=== PATIENT | male | born 1955 | race Caucasian/White ===

== ENCOUNTER 2017-03-15 23:42 | Emergency (ER) | payer OTHER, SELFPAY ==
[2017-03-15 23:42] VITALS: BMI 35.5
[2017-03-15 23:57] VITALS: RESP 16
[2017-03-16] MEDS ORDERED: Sodium Chloride 0.9% 1,000 ML IV ONE (00:30)
--- NOTE | 2017-03-16 00:32 | C.PDOC ---
History Of Present Illness pt complaining of r inguinal pain occasionally radiating into his back. states that he lifted somethong heavy at work, and felt some discomfort. from his groin radiating into his back. pain has subsided, but returned. No f/c/n/v. no urinary symptoms Time Seen by Provider: 03/16/17 00:25 Chief Complaint (Nursing): Abdominal Pain History Per: Patient History/Exam Limitations: no limitations Onset/Duration Of Symptoms: Days (16) Current Symptoms Are (Timing): Still Present Context: Other Severity: Moderate Pain Scale Rating Of: 4 Location Of Pain/Discomfort: Other (r inguinal) Radiation Of Pain To:: Back Quality Of Discomfort: Dull, Cramping Associated Symptoms: denies: Fever, Chills, Nausea, Vomiting Exacerbating Factors: Movement Alleviating Factors: None Last Bowel Movement: Yesterday Recent travel outside of the [place]: No Additional History Per: Patient Past Medical History Reviewed: Historical Data, Nursing Documentation, Vital Signs Vital Signs: Last Vital Signs Temp 97.7 F 03/16/17 03:22 Pulse 72 03/16/17 03:22 Resp 16 03/16/17 03:22 BP 115/73 03/16/17 03:22 Pulse Ox 97 03/16/17 03:22 - Medical History PMH: Anxiety, Arthritis (neck), Asthma, Back Problems, COPD, CVA, Diabetes ( borderline), HTN, Hypercholesterolemia, Hyperlipidemia, Kidney Stones, Pneumonia , TIA (2004), Chronic Pain Denies: Chronic Kidney Disease Family History: States: No Known Family Hx, [place] (Multiple uncles had [place]'s in their 40's and 50's but not 1st degree family), Diabetes, Hypertension - Social History Hx Tobacco Use: Yes (occasionally) Hx Alcohol Use: No Hx Substance Use: No - Immunization History Hx Tetanus Toxoid Vaccination: No Hx Influenza Vaccination: Yes Hx Pneumococcal Vaccination: Yes Review Of Systems Constitutional: Negative for: Fever, Chills Cardiovascular: Negative for: Chest Pain Respiratory: Negative for: Shortness of Breath Gastrointestinal: Negative for: Nausea, Vomiting, Abdominal Pain Genitourinary: Negative for: Dysuria Musculoskeletal: Positive for: Other (r inguinal pain) Skin: Positive for: Rash (ieriscrotal) Neurological: Negative for: Weakness Psych: Negative for: Anxiety Physical Exam - Physical Exam Appears: Non-toxic, No Acute Distress Skin: Warm, Dry Oral Mucosa: Moist Neck: Supple Chest: No Deformity Cardiovascular: Rhythm Regular Respiratory: No Rales, No Rhonchi, No Wheezing Gastrointestinal/Abdominal: Soft, No Tenderness, Other (morbidly obese) Back: No CVA Tenderness Male Genital: No Testicular Tenderness, No Testicular Swelling, Inguinal Tenderness (right), No Inguinal Swelling, No Scrotal Swelling, No Circumcised Extremity: No Tenderness Extremity: Bilateral: Atraumatic, Normal Color And Temperature, Normal ROM Pulses: Left Dorsalis Pedis: Normal, Right Dorsalis Pedis: Normal Neurological/Psych: Oriented x3, Normal Speech, Normal Cognition Gait: Steady ED Course And Treatment - Laboratory Results Result Diagrams: 03/16/17 01:02 03/16/17 01:02 O2 Sat by Pulse Oximetry: 96 Pulse Ox Interpretation: Normal Reevaluation Time: 04:42 Reassessment Condition: Improved Disposition Counseled Patient/Family Regarding: Studies Performed, Diagnosis, Need For Followup - Disposition Referrals: [facility] [Outside] [facility] [Outside] Disposition: HOME/ ROUTINE Disposition Time: 00:29 Condition: FAIR Prescriptions: Ibuprofen [Motrin Tab] 800 mg PO TID PRN #15 tab PRN Reason: Pain, Moderate (4-7) Instructions: Groin Pain (ED), Diverticulosis (ED), Diverticulosis Diet (ED) Forms: [facility] (Lao) - Clinical Impression Clinical Impression: Abdominal pain, Inguinal strain
[2017-03-16 01:07] LABS: RBC URINE 1 /hpf (0-3); URINE BACTERIA RARE (<OCC); URINE BILIRUBIN NEGATIVE (NEGATIVE); URINE BLOOD NEGATIVE (NEGATIVE); URINE COLOR Yellow (YELLOW); URINE GLUCOSE (UA) 1+ mg/dL (Normal); URINE KETONE NEGATIVE (NEGATIVE); URINE LEUKOCYTE ESTERASE NEG Leu/uL (Negative); URINE PROTEIN NEGATIVE (NEGATIVE); URINE UROBILINOGEN NORMAL mg/dL (0.2-1.0); WBC URINE 2 /hpf (0-5)
[2017-03-16 01:14] LABS: BASO # 0.1 K/uL (0.0-0.2); BASO % 0.8 % (0.0-2.0); EOS # 0.1 K/uL (0.0-0.7); EOS % 1.7 % (0.0-4.0); HEMATOCRIT 41.8 % (35.0-51.0); LYMPH # 3.1 K/uL (1.0-4.3); LYMPH % 38.4 % (20.0-40.0); MEAN CELL VOLUME 86.1 fL (80.0-94.0); MEAN CORPUSCULAR HEMOGLOBIN 29.4 pg (27.0-31.0); MEAN CORPUSCULAR HGB CONC 34.2 g/dL (33.0-37.0); MEAN PLATELET VOLUME 7.6 fL (7.2-11.7); MONO # 0.6 K/uL (0.0-0.8); NRBC % 0.2 % (0.0-2.0); RED CELL DISTRIBUTION WIDTH 13.8 % (11.5-14.5); WHITE BLOOD COUNT 7.9 K/uL (4.8-10.8)
[2017-03-16 01:40] LABS: ALB/GLOB RATIO 1.1 (1.0-2.1); ALKALINE PHOSPHATASE 62 U/L (38-126); ALT/SGPT 31 U/L (21-72); AST/SGOT 31 U/L (17-59); BILIRUBIN,TOTAL 0.4 mg/dL (0.2-1.3); BLOOD UREA NITROGEN 22 mg/dL (9-20); CARBON DIOXIDE 25 mmol/L (22-30); GFR AFRICAN-AMERICAN > 60; GLUCOSE,RANDOM 133 mg/dL (75-110); TOTAL PROTEIN 6.8 g/dL (6.3-8.3)
[2017-03-16 01:41] LABS: CALCIUM 8.8 mg/dl (8.6-10.4)
[2017-03-16 01:47] LABS: SODIUM 135 mmol/L (132-148)
[2017-03-16 01:48] LABS: CHLORIDE 100 mmol/L (98-107); POTASSIUM 3.7 mmol/L (3.6-5.2)
[2017-03-16] MEDS ORDERED: Iodixanol 320 MG/ML 100 ML BOTTLE IV ONE (03:43)
--- NOTE | 2017-03-16 04:12 | CT ---
EXAM: CT Abdomen and Pelvis With Intravenous Contrast CLINICAL HISTORY: 61 years old, male; Pain; Abdominal pain and other: Right groin pain; Patient HX: 8-16 TECHNIQUE: Axial computed tomography images of the abdomen and pelvis with intravenous contrast. This CT exam was performed using one or more of the following dose reduction techniques: automated exposure control, adjustment of the mA and/or kV according to patient size, and/or use of iterative reconstruction technique. Coronal and sagittal reformatted images were created and reviewed. CONTRAST: 100 mL of [id number] administered intravenously. COMPARISON: No relevant prior studies available. FINDINGS: Lower thorax: The bilateral lung bases are clear. ABDOMEN: Liver: No acute findings. Gallbladder and bile ducts: The gallbladder is decompressed. No calcified stones. No significant intra- or extrahepatic biliary ductal dilation. Pancreas: Enhances homogeneously. No ductal dilation. No discrete mass. Spleen: No acute findings. Adrenals: No acute findings. Kidneys and ureters: No acute findings. No hydronephrosis or renal calculi. No discrete solid mass. PELVIS: Bladder: No acute findings. Reproductive: No acute findings. Appendix: The air filled appendix is of normal caliber (series 3, image 134) . ABDOMEN and PELVIS: Stomach and bowel: No obstruction. No mucosal thickening. Colonic diverticulosis, without inflammation. Peritoneum: No significant fluid collection. No free air. Lymph nodes: No pathologically enlarged lymph nodes. Vasculature: Unremarkable. Bones: No acute fracture. IMPRESSION: Colonic diverticulosis.
[2017-03-16 05:03] VITALS: BP 116/61; PULSE 78; TEMP 97.4; O2SAT 16
== END 2017-03-16 05:05 | disposition home or self-care (01) ==
LOC: C.ER 23:42
DX: S39.011A Strain of muscle, fascia and tendon of abdomen, initial encounter (principal); X50.9XXA Other and unspecified overexertion or strenuous movements or postures, initial encounter; Y92.89 Other specified places as the place of occurrence of the external cause; Y99.0 Civilian activity done for income or pay; R10.31 Right lower quadrant pain
CPT/HCPCS: 74177; 80053; 81001; 83690; 85025; 85610; 85730; 96361; 96374; 99284; J1885; J7040; Q9967

== ENCOUNTER 2017-03-27 16:54 | Emergency (ER) | payer OTHER ==
[2017-03-27 16:54] VITALS: BMI 35.5
[2017-03-27 17:02] VITALS: BP 155/97; PULSE 96; RESP 18; TEMP 98.5; O2SAT 96
--- NOTE | 2017-03-27 17:16 | C.PDOC ---
History Of Present Illness Cain Lindo is a 61 y/o male who presents to the ED complaining of pain at his right thigh radiating down the leg. Pt notes that its primarily only at his varicose veins. Worse after standing on his feet all day at work. Denies trauma or injury. Denies back pain, knee pain, leg swelling, groin pain, testicular pain or discharge. No SOB, abdominal pain. Time Seen by Provider: 03/27/17 17:04 Chief Complaint (Nursing): Lower Extremity Problem/Injury History Per: Patient History/Exam Limitations: no limitations Onset/Duration Of Symptoms: Days (x 3) Current Symptoms Are (Timing): Still Present Past Medical History Reviewed: Historical Data, Nursing Documentation, Vital Signs Vital Signs: Last Vital Signs Temp 98.5 F 03/27/17 16:59 Pulse 96 H 03/27/17 16:59 Resp 18 03/27/17 16:59 BP 155/97 H 03/27/17 16:59 Pulse Ox 96 03/27/17 18:05 - Medical History PMH: Anxiety, Arthritis (neck), Asthma, Back Problems, COPD, CVA, Diabetes ( borderline), HTN, Hypercholesterolemia, Hyperlipidemia, Kidney Stones, Pneumonia , Chronic Kidney Disease, TIA (2004), Chronic Pain Other Surgeries: Foot surgery, Right middle finger surgery Family History: States: [place] (Multiple uncles had [place]'s in their 40's and 50's but not 1st degree family), Diabetes, Hypertension - Social History Hx Tobacco Use: Yes (occasionally) Hx Alcohol Use: No Hx Substance Use: No - Immunization History Hx Tetanus Toxoid Vaccination: No Hx Influenza Vaccination: Yes Hx Pneumococcal Vaccination: Yes Review Of Systems Except As Marked, All Systems Reviewed And Found Negative. Gastrointestinal: Negative for: Abdominal Pain Genitourinary: Negative for: Other (Inguinal or testicular pain, discharge) Musculoskeletal: Positive for: Other (Right thigh pain, near superficial vein). Negative for: Back Pain, Leg Pain (lower leg or knee) Physical Exam - Physical Exam Appears: Well, Non-toxic, No Acute Distress Skin: Normal Color, Warm, Dry Head: Atraumatic, Normacephalic Eye(s): bilateral: Normal Inspection, EOMI Nose: Normal Oral Mucosa: Moist Throat: Normal Neck: Normal, Normal ROM, Supple Chest: Symmetrical Cardiovascular: Rhythm Regular, No Murmur Respiratory: Normal Breath Sounds, No Accessory Muscle Use Gastrointestinal/Abdominal: Normal Exam, Soft, No Tenderness Back: Normal Inspection, No Vertebral Tenderness Extremity: Normal ROM, Tenderness (to his right anterior lateral thigh, tenderness to varicose veins), No Swelling Pulses: Left Dorsalis Pedis: Normal, Right Dorsalis Pedis: Normal Neurological/Psych: Oriented x3, Normal Speech, Normal Motor, Normal Sensation Gait: Steady ED Course And Treatment O2 Sat by Pulse Oximetry: 96 (RA) Pulse Ox Interpretation: Normal Progress Note: Ordered Naproxen. Patient reports feeling better. Wells criteria negative.Will return tomorrow for US Duplex of the lower extremity. Patient is in agreement with the plan. He is discharged home with Rx for Naprosyn. Case discussed with Dr Ashby, agreed upon plan and treatment. Medical Decision Making Medical Decision Making: Time: 17:30 Plan: --Naproxen 550 mg PO Disposition - Disposition Disposition: HOME/ ROUTINE Disposition Time: 17:39 Condition: STABLE Additional Instructions: Elevate your legs. Where compression stockings. Return to ER tomorrow for ultrasound of your leg. Prescriptions: Naproxen [Naprosyn] 1 tab PO BID PRN #20 tab PRN Reason: Pain Instructions: Varicose Veins (ED) Forms: [facility] (Kiswahili), Work Excuse - Clinical Impression Clinical Impression: Right leg pain
[2017-03-27] MEDS ORDERED: Naproxen 550 mg Tab PO STA (17:30)
[2017-03-27] MEDS ORDERED: Naproxen 550 mg Tab PO ONE (17:40)
[2017-03-27] MEDS ORDERED: Enoxaparin 40 mg Syringe SC STA (17:45)
== END 2017-03-27 17:57 | disposition home or self-care (01) ==
LOC: C.ER 16:54
DX: M79.651 Pain in right thigh (principal)

== ENCOUNTER 2017-03-28 08:33 | Emergency (ER) | payer OTHER ==
[2017-03-28 08:34] VITALS: BMI 35.5
--- NOTE | 2017-03-28 09:46 | C.PDOC ---
History Of Present Illness 61 year old male with PMH of Arthritis, chronic back pain, HTN, COPD and Anxiety presents to ED with complaints of right leg pain. Patient reports pain started in the thigh 3 days ago and radiates down the leg. He was seen in ED yesterday and advised to return for Doppler study. Patient states he felt improvement of pain with Naproxen. Denies any chest pain, palpitations, SOB. Time Seen by Provider: 03/28/17 09:19 Chief Complaint (Nursing): Lower Extremity Problem/Injury History Per: Patient History/Exam Limitations: no limitations Onset/Duration Of Symptoms: Days (3) Current Symptoms Are (Timing): Better Past Medical History Reviewed: Historical Data, Nursing Documentation, Vital Signs Vital Signs: Last Vital Signs Temp 98 F 03/28/17 10:34 Pulse 69 03/28/17 10:34 Resp 18 03/28/17 10:34 BP 121/73 03/28/17 10:34 Pulse Ox 97 03/28/17 10:34 - Medical History PMH: Anxiety, Arthritis (neck), Asthma, Back Problems, COPD, CVA, Diabetes ( borderline), HTN, Hypercholesterolemia, Hyperlipidemia, Kidney Stones, Pneumonia , Chronic Kidney Disease, TIA (2004), Chronic Pain Family History: States: [place] (Multiple uncles had [place]'s in their 40's and 50's but not 1st degree family), Diabetes, Hypertension - Social History Hx Tobacco Use: Yes (occasionally) Hx Alcohol Use: No Hx Substance Use: No - Immunization History Hx Tetanus Toxoid Vaccination: No Hx Influenza Vaccination: Yes Hx Pneumococcal Vaccination: Yes Review Of Systems Except As Marked, All Systems Reviewed And Found Negative. Cardiovascular: Negative for: Chest Pain, Palpitations Respiratory: Negative for: Shortness of Breath Musculoskeletal: Positive for: Leg Pain (Right leg pain. From thigh radiating down the leg.) Physical Exam - Physical Exam Appears: Non-toxic, No Acute Distress Skin: Warm, Dry, No Rash Head: Atraumatic, Normacephalic Eye(s): bilateral: Normal Inspection Oral Mucosa: Moist Neck: Normal ROM Chest: Symmetrical, No Tenderness Cardiovascular: Rhythm Regular, No Murmur Respiratory: Normal Breath Sounds, No Rales, No Rhonchi, No Wheezing Extremity: Normal ROM, Tenderness (To right anterior lateral thigh. Tenderness to varicose veins. ), No Pedal Edema, No Calf Tenderness, No Deformity, No Swelling Pulses: Left Dorsalis Pedis: Normal, Right Dorsalis Pedis: Normal Neurological/Psych: Oriented x3, Normal Speech Gait: Steady Medical Decision Making Medical Decision Making: Impression: Right leg pain, low suspicion for DVT Prior records reviewed: Patient seen in ED yesterday for leg pain and advised to return for Doppler Plan: * Venous doppler Progress: Venous doppler was negative for DVT or other abnormality. Patient remained well and in no acute distress. Patient stable for discharge and recommend Naproxen for any pain and to follow up with PCP or clinic. Disposition - Disposition Referrals: Clinic,Med Surg [Primary Care Provider] - Disposition: HOME/ ROUTINE Disposition Time: 10:14 Condition: STABLE Additional Instructions: Your venous ultrasound test today was negative, meaning no blood clots. Please continue to take Naproxen for any pain to area. It is recommended you follow up with your doctor or clinic for further evaluation. 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 - Scribe Statement The provider has reviewed the documentation as recorded by the Scribe Carole Falk All medical record entries made by the Imtiaz were at my direction and personally dictated by me. I have reviewed the chart and agree that the record accurately reflects my personal performance of the history, physical exam, medical decision making, and the department course for this patient. I have also personally directed, reviewed, and agree with the discharge instructions and disposition.
[2017-03-28 10:35] VITALS: BP 121/73; PULSE 69; RESP 18; TEMP 98; O2SAT 97
--- NOTE | 2017-03-29 12:00 | VASCLAB ---
PROCEDURE: Right Lower Extremity Venous Duplex Exam. HISTORY: right leg pain, thigh to calf, varicose veins PRIORS: None. TECHNIQUE: Right common femoral, femoral, popliteal and posterior tibial, peroneal and great saphenous veins were evaluated. Flow was assessed with color Doppler, compressibility, assessment of phasic flow and augmentation response. Report prepared by FERNANDO Brush, RVT FINDINGS: RIGHT: 1. Common Femoral Vein: 1.1. Compressibility - Fully compressible: Thrombus - None: Flow - Phasic: Augmentation -Normal: Reflux - None. 2. Femoral Vein: 2.1. Compressibility - Fully compressible: Thrombus - None: Flow - Phasic: Augmentation -Normal: Reflux - None. 3. Popliteal Vein: 3.1. Compressibility - Fully compressible: Thrombus - None: Flow - Phasic: Augmentation -Normal: Reflux - None. 4. Posterior Tibial Vein: 4.1. Compressibility - Fully compressible: Thrombus - None: Flow - Phasic: Augmentation -Normal: Reflux - None. 5. Peroneal Vein: 5.1. Compressibility - Fully compressible: Thrombus - None: Flow - Phasic: Augmentation -Normal: Reflux - None. 6. Great Saphenous Vein: 6.1. Compressibility - Fully compressible: Thrombus -None: Flow - Phasic: Augmentation - Normal: Reflux - None. OTHER FINDINGS: IMPRESSION: No evidence of deep or superficial vein thrombosis of the right lower extremity with excellent venous flow. Normal valve function noted of the right side. Normal venous flow noted in the left common femoral vein.
== END 2017-03-28 10:37 | disposition home or self-care (01) ==
LOC: SUPCPDRO 08:33 → C.ER 08:33
DX: I83.811 Varicose veins of right lower extremity with pain (principal)

== ENCOUNTER 2017-04-14 04:22 | Emergency (ER) | payer SELFPAY ==
[2017-04-14 04:22] VITALS: BMI 35.5
--- NOTE | 2017-04-14 05:00 | C.PDOC ---
History Of Present Illness 61 year old male who presents to the ER with a complaint of intermittent right testicle pain for the past week that worsen with movement. Patient states the pain worsened tonight which prompted visit. Denies trauma, urinary symptoms, penile discharge, abdominal pain, or fever. Time Seen by Provider: 04/14/17 04:48 Chief Complaint (Nursing): Groin Pain History Per: Patient History/Exam Limitations: no limitations Onset/Duration Of Symptoms: Days, Intermittent Episodes Current Symptoms Are (Timing): Still Present Quality Of Discomfort: Unable To Describe Associated Symptoms: denies: Fever, Chills, Urinary Symptoms Alleviating Factors: None Recent travel outside of the [place]: No Past Medical History Reviewed: Historical Data, Nursing Documentation, Vital Signs Vital Signs: Last Vital Signs Temp 97.4 F L 04/14/17 04:30 Pulse 81 04/14/17 04:30 Resp 20 04/14/17 04:30 BP 136/93 H 04/14/17 04:30 Pulse Ox 97 04/14/17 05:03 - Medical History PMH: Anxiety, Arthritis (neck), Asthma, Back Problems, COPD, CVA, Diabetes ( borderline), HTN, Hypercholesterolemia, Hyperlipidemia, Kidney Stones, Pneumonia , Chronic Kidney Disease, TIA, Chronic Pain Surgical History: No Surg Hx Family History: States: [place] (Multiple uncles had [place]'s in their 40's and 50's but not 1st degree family), Diabetes, Hypertension - Social History Hx Tobacco Use: Yes (occasionally) Hx Alcohol Use: No Hx Substance Use: No - Immunization History Hx Tetanus Toxoid Vaccination: No Hx Influenza Vaccination: No Hx Pneumococcal Vaccination: No Review Of Systems Constitutional: Negative for: Fever Gastrointestinal: Negative for: Abdominal Pain Genitourinary: Positive for: Scrotal Pain. Negative for: Dysuria, Hematuria, Penile Discharge, Penile Pain Physical Exam - Physical Exam Appears: Non-toxic Skin: Normal Color, Warm, Dry Head: Atraumatic, Normacephalic Oral Mucosa: Moist Male Genital: Testicular Tenderness (Moderate to right), Testicular Swelling ( Mild to right), Inguinal Tenderness (Right), No Other (Erythema, lesions, bulging mass, hernia) Neurological/Psych: Oriented x3, Normal Speech, Normal Cognition ED Course And Treatment O2 Sat by Pulse Oximetry: 97 (Room air) Pulse Ox Interpretation: Normal Progress Note: Toradol administered. Urinalysis and testicular US ordered. Pain improved with meds. Testicular US shows right epididymal cysts. Pt is stable, advised pain meds and f/u. Return precautions explained and understood by pt Reevaluation Time: 06:28 Reassessment Condition: Improved Disposition Counseled Patient/Family Regarding: Diagnosis, Need For Followup, Rx Given - Disposition Referrals: David Fowler MD [Staff Provider] - [facility] [Outside] Disposition: HOME/ ROUTINE Disposition Time: 06:28 Condition: STABLE Additional Instructions: Motrin for pain Follow up with the Urologist- call for appointment Return if worse Prescriptions: Ibuprofen [Motrin] 600 mg PO Q6H #20 tab Instructions: Testicle Pain (ED) Forms: [facility] (Indonesian) - Clinical Impression Clinical Impression: Epididymal cyst, Testicular pain, right - Scribe Statement The provider has reviewed the documentation as recorded by the Scribe Kal Mcarthur All medical record entries made by the Scribe were at my direction and personally dictated by me. I have reviewed the chart and agree that the record accurately reflects my personal performance of the history, physical exam, medical decision making, and the department course for this patient. I have also personally directed, reviewed, and agree with the discharge instructions and disposition.
[2017-04-14 05:18] LABS: RBC URINE < 1 /hpf (0-3); URINE BILIRUBIN NEGATIVE (NEGATIVE); URINE BLOOD NEGATIVE (NEGATIVE); URINE COLOR Yellow (YELLOW); URINE GLUCOSE (UA) NORMAL (Normal); URINE KETONE NEGATIVE (NEGATIVE); URINE LEUKOCYTE ESTERASE NEG Leu/uL (Negative); URINE PROTEIN NEGATIVE (NEGATIVE); URINE UROBILINOGEN NORMAL mg/dL (0.2-1.0); WBC URINE 1 /hpf (0-5)
--- NOTE | 2017-04-14 06:07 | US ---
EXAM: US Scrotum EXAM DATE/TIME: 04/14/2017 4:54 AM CLINICAL HISTORY: 61 years old, male; Pain; Groin pain; Additional info: Right testicular pain TECHNIQUE: Real-time ultrasound of the scrotum with color Doppler and image documentation. COMPARISON: No relevant prior studies available. FINDINGS: The right testicle measures 4 x 1.9 x 2.6 cm. The left testicle measures 3.8 x 1.7 x 2.5 cm. The testicles are homogeneous bilaterally. Color flow and arterial waveforms are demonstrated to the testicles bilaterally (no torsion). The right epididymis is enlarged with respect to the left due to the presence of 2 cysts both of which measure approximately 1.2 cm in diameter. Prior testicular ultrasound from 2013 was not provided. If images or report are provided, I would be happy to correlate to determine if this is a new finding. IMPRESSION: Right epididymal cysts.
[2017-04-14 06:40] VITALS: BP 129/79; PULSE 74; RESP 16; TEMP 97.8; O2SAT 98
== END 2017-04-14 06:40 | disposition home or self-care (01) ==
LOC: C.ER 04:22
DX: N50.3 Cyst of epididymis (principal); N50.811 Right testicular pain
CPT/HCPCS: 76870; 81001; 96372; 99282; J1885

== ENCOUNTER 2017-05-05 10:34 | Emergency (ER) | payer OTHER ==
[2017-05-05 10:35] VITALS: BMI 35.5
--- NOTE | 2017-05-05 11:06 | C.PDOC ---
History Of Present Illness 61M c/o constant bilateral flank pain, low back pain, and left side abdominal pain rad to left chest for the last couple days. pain is worse w movement. he says he has a long hx of back pain and also has had this same chest pain in the past and is unsure of the cause. Time Seen by Provider: 05/05/17 11:06 Chief Complaint (Nursing): Back Pain Past Medical History Vital Signs: Last Vital Signs Temp 97.5 F L 05/05/17 16:27 Pulse 78 05/05/17 16:27 Resp 20 05/05/17 16:27 BP 118/84 05/05/17 16:27 Pulse Ox 96 05/05/17 17:25 - Medical History PMH: Anxiety, Arthritis (neck), Asthma, Back Problems, COPD, CVA, Diabetes ( borderline), HTN, Hypercholesterolemia, Hyperlipidemia, Kidney Stones, Pneumonia , Chronic Kidney Disease, TIA, Chronic Pain Family History: States: [place] (Multiple uncles had [place]'s in their 40's and 50's but not 1st degree family), Diabetes, Hypertension - Social History Hx Tobacco Use: Yes (occasionally) Hx Alcohol Use: No Hx Substance Use: No - Immunization History Hx Tetanus Toxoid Vaccination: No Hx Influenza Vaccination: No Hx Pneumococcal Vaccination: No Review Of Systems Constitutional: Negative for: Fever, Weakness Cardiovascular: Positive for: Chest Pain. Negative for: Palpitations, Edema Respiratory: Negative for: Cough, Shortness of Breath Gastrointestinal: Positive for: Abdominal Pain. Negative for: Nausea, Vomiting , Diarrhea, Melena, Hematochezia Genitourinary: Negative for: Dysuria, Incontinence Neurological: Negative for: Weakness, Numbness, Confusion, Altered Mental Status , Headache, Dizziness Physical Exam - Physical Exam Appears: Well, Non-toxic, No Acute Distress Skin: Warm, Dry Head: Atraumatic Eye(s): bilateral: PERRL Nose: No Epistaxis Oral Mucosa: Moist Neck: Normal ROM Cardiovascular: Rhythm Regular Respiratory: No Decreased Breath Sounds, No Accessory Muscle Use, No Rales, No Rhonchi, No Wheezing Gastrointestinal/Abdominal: Soft, No Tenderness, No Distention, No Guarding, No Rebound Extremity: No Swelling Pulses: Left Radial: Normal, Right Radial: Normal, Left Dorsalis Pedis: Normal, Right Dorsalis Pedis: Normal Neurological/Psych: Oriented x3, Normal Motor, Normal Sensation, Other (no focal deficits) ED Course And Treatment - Laboratory Results Result Diagrams: 05/05/17 11:50 05/05/17 11:50 ECG: Interpreted By Me, Viewed By Me ECG Rhythm: Sinus Rhythm Interpretation Of ECG: LVH, No acute ischemia Rate From EC (bpm) O2 Sat by Pulse Oximetry: 96 (ra) Medical Decision Making Medical Decision Makin the pt is resting quietly, appears well, no distress, requesting food. I disc results w him including need for close pcp follow up for incidental findings. he v/u and agrees w plan. also disc rtr. 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 TECHNIQUE: Axial computed tomography images were obtained of the chest in the pulmonary arterial phase of enhancement. Coronal and sagittal reformatted images were created and reviewed. Intravenous contrast dose: 100 mL Visipaque 320 Radiation dose: Total exam DLP = 543.58 mGy-cm. This CT exam was performed using one or more of the following dose reduction techniques: Automated exposure control, adjustment of the mA and/or kV according to patient size, and/or use of iterative reconstruction technique. FINDINGS: PULMONARY ARTERIES: Unremarkable. No pulmonary embolism. AORTA: The thoracic aorta is ectatic and tortuous. There is mild dilate a julio of the ascending thoracic aorta. No evidence of aortic dissection LUNGS: No evidence of pneumonia. Mild 2 moderate pulmonary vascular congestion. Nonspecific ground-glass opacity more prominent at the lower lobes are noted. PLEURAL SPACES: Unremarkable. No effusion or pneuomothorax. HEART: The heart is mildly enlarged. LYMPH NODES: No lymphadenopathy. BONES, CHEST WALL: Unremarkable. No fracture or destructive lesion OTHER FINDINGS: The scans through the upper abdomen demonstrate mild hepatomegaly with findings suggestive of moderate hepatic steatosis. IMPRESSION: No evidence of pulmonary embolus. Cardiomegaly and [id number] pulmonary vascular congestion. Correlate clinically for CHF. No evidence of pleural effusion or pneumothorax. Hepatomegaly with findings suggestive of hepatic steatosis. Disposition - Disposition Referrals: [facility] [Outside] Disposition: HOME/ ROUTINE Disposition Time: 17:21 Condition: STABLE Additional Instructions: Please follow up with your doctor: call tomorrow to make an appointment next week. Return to the ER for any worsening symptoms or for any other concerns. Instructions: Chest Pain (ED) Forms: General Discharge Instructions, [facility] (Bengali), Work Excuse - Clinical Impression Clinical Impression: Chest pain
[2017-05-05 11:55] LABS: BASO # 0.1 K/uL (0.0-0.2); BASO % 0.7 % (0.0-2.0); EOS # 0.1 K/uL (0.0-0.7); EOS % 1.4 % (0.0-4.0); HEMATOCRIT 42.9 % (35.0-51.0); LYMPH # 1.7 K/uL (1.0-4.3); LYMPH % 19.1 % (20.0-40.0); MEAN CELL VOLUME 85.3 fL (80.0-94.0); MEAN CORPUSCULAR HEMOGLOBIN 29.2 pg (27.0-31.0); MEAN CORPUSCULAR HGB CONC 34.2 g/dL (33.0-37.0); MEAN PLATELET VOLUME 7.7 fL (7.2-11.7); MONO # 0.6 K/uL (0.0-0.8); MONO % 6.7 % (0.0-10.0); RED CELL DISTRIBUTION WIDTH 13.5 % (11.5-14.5); WHITE BLOOD COUNT 9.1 K/uL (4.8-10.8)
[2017-05-05 12:01] LABS: URINE BILIRUBIN NEGATIVE (NEGATIVE); URINE BLOOD NEGATIVE (NEGATIVE); URINE COLOR Yellow (YELLOW); URINE GLUCOSE (UA) NORMAL (Normal); URINE KETONE NEGATIVE (NEGATIVE); URINE LEUKOCYTE ESTERASE NEG Leu/uL (Negative); URINE PROTEIN NEGATIVE (NEGATIVE); URINE UROBILINOGEN NORMAL mg/dL (0.2-1.0); WBC URINE < 1 /hpf (0-5)
[2017-05-05 12:09] LABS: CHLORIDE 102 mmol/L (98-107)
[2017-05-05 12:10] LABS: POTASSIUM 4.5 mmol/L (3.6-5.2); SODIUM 140 mmol/L (132-148)
[2017-05-05 12:12] LABS: ALB/GLOB RATIO 1.3 (1.0-2.1); ALKALINE PHOSPHATASE 57 U/L (38-126); AST/SGOT 35 U/L (17-59); BILIRUBIN,TOTAL 0.8 mg/dL (0.2-1.3); BLOOD UREA NITROGEN 17 mg/dL (9-20); CARBON DIOXIDE 24 mmol/L (22-30); GFR AFRICAN-AMERICAN > 60; TOTAL PROTEIN 7.3 g/dL (6.3-8.3)
[2017-05-05 12:13] LABS: ALT/SGPT 34 U/L (21-72); CALCIUM 9.3 mg/dl (8.6-10.4); GLUCOSE,RANDOM 120 mg/dL (75-110)
[2017-05-05] MEDS ORDERED: Iodixanol 320 MG/ML 100 ML BOTTLE IV ONE (14:41)
--- NOTE | 2017-05-05 15:06 | RAD ---
HISTORY: cp COMPARISON: Chest x-ray performed 09/11/15 TECHNIQUE: Chest PA and lateral FINDINGS: Examination limited by habitus and hypoinflation. LUNGS: Mild biapical pleural thickening. Bibasilar atelectasis. Please note that chest x-ray has limited sensitivity for the detection of pulmonary masses. PLEURA: No significant pleural effusion identified. No definite pneumothorax . CARDIOVASCULAR: Heart size appears top normal. OSSEOUS STRUCTURES: Degenerative changes of the spine. VISUALIZED UPPER ABDOMEN: Unremarkable. OTHER FINDINGS: None. IMPRESSION: Hypoinflation. Mild biapical pleural thickening. Mild bibasilar atelectasis.
[2017-05-05 16:27] VITALS: BP 118/84; PULSE 78; RESP 20; TEMP 97.5
--- NOTE | 2017-05-05 16:45 | CT ---
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 TECHNIQUE: Axial computed tomography images were obtained of the chest in the pulmonary arterial phase of enhancement. Coronal and sagittal reformatted images were created and reviewed. Intravenous contrast dose: 100 mL Visipaque 320 Radiation dose: Total exam DLP = 543.58 mGy-cm. This CT exam was performed using one or more of the following dose reduction techniques: Automated exposure control, adjustment of the mA and/or kV according to patient size, and/or use of iterative reconstruction technique. FINDINGS: PULMONARY ARTERIES: Unremarkable. No pulmonary embolism. AORTA: The thoracic aorta is ectatic and tortuous. There is mild dilate a julio of the ascending thoracic aorta. No evidence of aortic dissection LUNGS: No evidence of pneumonia. Mild 2 moderate pulmonary vascular congestion. Nonspecific ground-glass opacity more prominent at the lower lobes are noted. PLEURAL SPACES: Unremarkable. No effusion or pneuomothorax. HEART: The heart is mildly enlarged. LYMPH NODES: No lymphadenopathy. BONES, CHEST WALL: Unremarkable. No fracture or destructive lesion OTHER FINDINGS: The scans through the upper abdomen demonstrate mild hepatomegaly with findings suggestive of moderate hepatic steatosis. IMPRESSION: No evidence of pulmonary embolus. Cardiomegaly and [id number] pulmonary vascular congestion. Correlate clinically for CHF. No evidence of pleural effusion or pneumothorax. Hepatomegaly with findings suggestive of hepatic steatosis.
[2017-05-05 17:23] VITALS: O2SAT 96
--- NOTE | 2017-05-06 14:24 | CARD ---
APPROVED REPORT EKG Measurement Heart [id number] TX [id number] <Conclusion> Normal sinus rhythm Moderate voltage criteria for LVH, may be normal variant Borderline ECG
== END 2017-05-05 17:36 | disposition home or self-care (01) ==
LOC: C.ER 10:34
DX: R07.9 Chest pain, unspecified (principal)
CPT/HCPCS: 71020; 71275; 80053; 81001; 83690; 84484; 85025; 85378; 93005; 96374; 99284; J1885; Q9967

== ENCOUNTER 2017-09-21 14:33 | Emergency (ER) | payer OTHER ==
[2017-09-21 14:33] VITALS: BMI 35.5
[2017-09-21 14:39] VITALS: TEMP 98.4
--- NOTE | 2017-09-21 15:47 | C.PDOC ---
History Of Present Illness Cain Lindo is a 62 year old male, with a past medical history of asthma, who presents to the emergency department complaining of left lower back pain after mopping the floor onset since yesterday. Patient states the pain does not radiate, no saddle anesthesia. He denies any numbness or tingling, weakness, bladder or bowel dysfunction. No further medical complaints. PMD: None provided. Time Seen by Provider: 09/21/17 15:22 Chief Complaint (Nursing): Back Pain History Per: Patient History/Exam Limitations: no limitations Onset/Duration Of Symptoms: Days (x1) Current Symptoms Are (Timing): Still Present Quality Of Discomfort: "Pain" Associated Symptoms: None Past Medical History Reviewed: Historical Data, Nursing Documentation, Vital Signs Vital Signs: Last Vital Signs Temp 98.4 F 09/21/17 14:38 Pulse 78 09/21/17 16:52 Resp 16 09/21/17 16:52 BP 129/78 09/21/17 16:52 Pulse Ox 96 09/23/17 09:37 - Medical History PMH: Anxiety, Arthritis (neck), Asthma, Back Problems, COPD, CVA, Diabetes ( borderline), HTN, Hypercholesterolemia, Hyperlipidemia, Kidney Stones, Pneumonia , Chronic Kidney Disease, TIA, Chronic Pain Surgical History: No Surg Hx Family History: States: [place] (Multiple uncles had KS's in their 40's and 50's but not 1st degree family), Diabetes, Hypertension - Social History Hx Tobacco Use: Yes (occasionally) Hx Alcohol Use: No Hx Substance Use: No - Immunization History Hx Tetanus Toxoid Vaccination: No Hx Influenza Vaccination: No Hx Pneumococcal Vaccination: No Review Of Systems Gastrointestinal: Negative for: Other (bowel dysfunction) Genitourinary: Negative for: Other (bladder dysfunction) Musculoskeletal: Positive for: Back Pain (left lower) Neurological: Negative for: Weakness, Numbness (or tingling) Physical Exam - Physical Exam Appears: No Acute Distress Skin: Normal Color, Warm, Dry Head: Atraumatic, Normacephalic Eye(s): bilateral: Normal Inspection, PERRL, EOMI Neck: Supple Chest: No Tenderness Cardiovascular: Rhythm Regular, No Murmur Respiratory: Normal Breath Sounds, No Wheezing Gastrointestinal/Abdominal: Normal Exam, Soft, No Tenderness, No Guarding, No Rebound Back: Vertebral Tenderness (left lower lumbar tenderness.), No Straight Leg Raising (b/l), No Other (midline tenderness) Extremity: Normal ROM (lower extremities.), Pedal Edema (1+ b/l), No Deformity, Other (sensation on lower extremities intact.) Pulses: Left Dorsalis Pedis: Normal (+1/+2), Right Dorsalis Pedis: Normal (+1/+2 ) Neurological/Psych: Oriented x3, Normal Speech, Normal Cognition, Normal Motor, Normal Sensation ED Course And Treatment O2 Sat by Pulse Oximetry: 96 (RA) Pulse Ox Interpretation: Normal Medical Decision Making Medical Decision Making: Initial Impression: Back pain Initial Plan: --Toradol 30 mg IM --reevaluation pt still with pain. tylenol and lidoderm patch ordered. 437 pm pt feeling better, off stretcher and sitting on bed. d/c home. Disposition Counseled Patient/Family Regarding: Diagnosis, Need For Followup, Rx Given - Disposition Referrals: [facility] [Outside] Disposition: HOME/ ROUTINE Disposition Time: 16:38 Condition: IMPROVED Additional Instructions: Please take ibuprofen and Tylenol as prescribed. Warm compresses several times a day to pain ful area. Avoid heavy lifting Take patch off in 12 hours. Follow up in medical clinic in a few days. Prescriptions: Acetaminophen [Tylenol 325mg tab] 650 mg PO Q6 #30 tab Ibuprofen [Motrin] 600 mg PO TID #30 tab Instructions: Acute Low Back Pain (ED) Forms: General Discharge Instructions, [facility] ([facility]), Work Excuse Print Language: TELUGU - Clinical Impression Clinical Impression: Lumbar sprain - Scribe Statement Robby Monahan All medical record entries made by the Scribe were at my direction and personally dictated by me. I have reviewed the chart and agree that the record accurately reflects my personal performance of the history, physical exam, medical decision making, and the department course for this patient. I have also personally directed, reviewed, and agree with the discharge instructions and disposition.
[2017-09-21] MEDS ORDERED: Lidocaine 5% Patch TD STA (16:07)
[2017-09-21] MEDS ORDERED: Lidocaine 5% Patch TD ONE (16:15)
[2017-09-21 16:52] VITALS: BP 129/78; PULSE 78; RESP 16
[2017-09-23 09:37] VITALS: O2SAT 96
== END 2017-09-21 17:00 | disposition home or self-care (01) ==
LOC: C.ER 14:33
DX: S33.5XXA Sprain of ligaments of lumbar spine, initial encounter (principal); X58.XXXA Exposure to other specified factors, initial encounter; Y93.E5 Activity, floor mopping and cleaning
CPT/HCPCS: 96372; 99283; J1885

== ENCOUNTER 2017-09-28 23:15 | Inpatient (IN) | payer OTHER ==
[2017-09-28 23:15] VITALS: BMI 35.5
--- NOTE | 2017-09-29 00:16 | C.PDOC ---
History Of Present Illness Patient presents with one day of chest pressure, tightness., No f/c/n/v. Dull aching pressure, non radiating. Speaking in complete sentences. Also states that his legs have been swollen for" a while" Time Seen by Provider: 09/29/17 00:15 Chief Complaint (Nursing): Chest Pain History Per: Patient History/Exam Limitations: no limitations Onset/Duration Of Symptoms: Days (1) Current Symptoms Are (Timing): Still Present Context: Other Severity: Moderate Pain Scale Rating Of: 4 Quality: Dull, Tightness, Pressure Associated Symptoms: denies: Nausea Modifying Factors: None Exacerbating Factors: None Alleviating Factors: None Recent travel outside of the [place]: No Additional History Per: Patient Past Medical History Reviewed: Historical Data, Nursing Documentation, Vital Signs Vital Signs: Last Vital Signs Temp 98 F 09/28/17 23:22 Pulse 74 09/29/17 00:15 Resp 20 09/28/17 23:22 BP 116/63 09/29/17 00:15 Pulse Ox 96 09/29/17 00:25 - Medical History PMH: Anxiety, Arthritis (neck), Asthma, Back Problems, COPD, CVA, Diabetes ( borderline), HTN, Hypercholesterolemia, Hyperlipidemia, Kidney Stones, Pneumonia , Chronic Kidney Disease, TIA, Chronic Pain Family History: States: [place] (Multiple uncles had SD's in their 40's and 50's but not 1st degree family), Diabetes, Hypertension - Social History Hx Tobacco Use: Yes (occasionally) Hx Alcohol Use: No Hx Substance Use: No - Immunization History Hx Tetanus Toxoid Vaccination: No Hx Influenza Vaccination: No Hx Pneumococcal Vaccination: No Review Of Systems Constitutional: Negative for: Fever, Chills Eyes: Negative for: Redness ENT: Negative for: Throat Pain Cardiovascular: Positive for: Chest Pain Respiratory: Positive for: Shortness of Breath Gastrointestinal: Negative for: Nausea, Vomiting, Abdominal Pain Genitourinary: Negative for: Dysuria Musculoskeletal: Negative for: Back Pain Skin: Negative for: Rash Neurological: Negative for: Weakness Psych: Negative for: Anxiety Physical Exam - Physical Exam Appears: Non-toxic Skin: Warm, Dry Head: Normacephalic Eye(s): bilateral: Normal Inspection Oral Mucosa: Moist Neck: Supple Chest: Symmetrical Cardiovascular: Rhythm Regular Respiratory: No Rales, Rhonchi (bases), No Wheezing Gastrointestinal/Abdominal: Bowel Sounds (tympanic to percussion), Soft, No Tenderness, Distention, No Guarding, No Rebound Back: No CVA Tenderness Extremity: No Tenderness, Pedal Edema, No Calf Tenderness Extremity: Bilateral: Atraumatic, Normal ROM Pulses: Left Dorsalis Pedis: Normal, Right Dorsalis Pedis: Normal Neurological/Psych: Oriented x3, Normal Speech, Normal Cognition Gait: Steady ED Course And Treatment - Laboratory Results Result Diagrams: 09/29/17 00:29 09/29/17 00:29 ECG: Interpreted By Me, Viewed By Me ECG Rhythm: Sinus Rhythm (84), Nonspecific Changes O2 Sat by Pulse Oximetry: 96 Pulse Ox Interpretation: Normal - Radiology CXR: Interpreted by Me, Viewed By Me Disposition Discussed With Dr.: Frandy Daniel Comment: accepted the pt on his service and took over the care at 1:33 AM Doctor Will See Patient In The: ED Counseled Patient/Family Regarding: Studies Performed, Diagnosis - Disposition Disposition: HOSPITALIZED Disposition Time: 01:33 Condition: FAIR Forms: Rav[employer] (Arabic) - POA Present On Arrival: Poor Glycemic Control - Clinical Impression Clinical Impression: Chest pain Decision To Admit - Pt Status Changed To: Hospital Disposition Of: Inpatient - Admit Certification Admit to Inpatient:: After my assessment, the patient will require hospitalization for at least two midnights. This is because of the severity of symptoms shown, intensity of services needed, and/or the medical risk in this patient being treated as an outpatient. - InPatient: Physician Admission Certification: I certify that this patient requires 2 or more midnights of care for the following reason:: After my assessment, the patient will require hospitalization for at least two midnights. This is because of the severity of symptoms shown, intensity of services needed, and/or the medical risk in this patient being treated as an outpatient. - . Bed Request Type: Telemetry Admitting Physician: Frandy Daniel Patient Diagnosis: Chest pain
[2017-09-29] MEDS ORDERED: Aspirin 325 mg EC Tablets PO STA (00:19)
[2017-09-29 00:34] LABS: BASO % 0.6 % (0.0-2.0); EOS # 0.2 K/uL (0.0-0.7); EOS % 2.1 % (0.0-4.0); LYMPH # 2.8 K/uL (1.0-4.3); LYMPH % 37.6 % (20.0-40.0); MEAN CELL VOLUME 84.5 fL (80.0-94.0); MEAN CORPUSCULAR HEMOGLOBIN 29.6 pg (27.0-31.0); MEAN PLATELET VOLUME 7.7 fL (7.2-11.7); MONO # 0.7 K/uL (0.0-0.8); NEUT # 3.8 K/uL (1.8-7.0); NEUT % 50.7 % (50.0-75.0); NRBC % 0.2 % (0.0-2.0); RBC 4.72 Mil/uL (4.40-5.90); RED CELL DISTRIBUTION WIDTH 13.6 % (11.5-14.5); WHITE BLOOD COUNT 7.4 K/uL (4.8-10.8)
[2017-09-29 00:40] LABS: PROTHROMBIN TIME 10.6 SECONDS (9.7-12.2)
[2017-09-29 00:45] LABS: ALB/GLOB RATIO 1.2 (1.0-2.1); ALBUMIN 3.7 g/dL (3.5-5.0); ALT/SGPT 48 U/L (21-72); AST/SGOT 32 U/L (17-59); BLOOD UREA NITROGEN 22 mg/dL (9-20); CALCIUM 8.9 mg/dl (8.6-10.4); GFR AFRICAN-AMERICAN > 60; GFR NON-AFRICAN AMERICAN > 60
[2017-09-29 00:57] LABS: B-TYPE NATRIURETIC PEPTIDE 43.5 pg/mL (0-900)
--- NOTE | 2017-09-29 03:02 | CP.PCM.HP ---
<Paola MccormickRandi - Last Filed: 09/29/17 04:04> History of Present Illness - History of Present Illness History of Present Illness: CC: Chest Pressure and SOB HPI: A 62 year old male with a past medical history of asthma, HLD, borderline DM, and TIA, presents to the ED with bilateral chest pressure and shortness of breath that started Tuesday morning. He states that he woke up due to the pressure, and that it lasted for 5 minutes. It later returned in the afternoon and was the same pressure in severity. He also complained of fevers, headaches, lightheadedness and shortness of breath during these episodes. The patient states that the pressure is localized to his chest and was a 7/10. The patient' s friend drove him to the hospital because the pressure felt too uncomfortable and he was SOB. He states that he's had mild episodes of similar chest pressure for years. Patient also states he had an episode of diarrhea after eating lunch (broccoli, cauliflower) yesterday. In the ED, patient no longer complains of chest pressure, shortness of breath or lightheadedness. Patient currently denies abdominal pain, n/v, chills, d/c, palpitations, dysuria, and headaches. 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 Family Hx: 12 Uncles with HD/Stroke, Mother had DM and from lung cancer Allergies: None, NKDA Medications: Asthma medications in the past but stopped taking them. Present on Admission - Present on Admission Any Indicators Present on Admission: No Review of Systems - Constitutional Constitutional: Fatigue, Fever, Headache - EENT Ears: Dizziness - Cardiovascular Cardiovascular: Chest Pain, Dyspnea, Leg Edema. absent: Palpitations - Respiratory Respiratory: Cough, Dyspnea - Gastrointestinal Gastrointestinal: Diarrhea. absent: Abdominal Pain, Constipation, Nausea, Vomiting - Genitourinary Genitourinary: absent: Dysuria, Hematuria - Integumentary Integumentary: Swelling (LE b/l) - Neurological Neurological: Dizziness, Headaches, Vertigo, Weakness. absent: Abnormal Gait, Frequent Falls - Endocrine Endocrine: Fatigue. absent: Palpitations Past Patient History - Infectious Disease Hx of Infectious Diseases: None - Past Medical History & Family History Past Medical History?: Yes - Past Social History Smoking Status: Former Smoker - CARDIAC Hx Hypercholesterolemia: Yes Hx Hypertension: Yes - PULMONARY Hx Asthma: Yes Hx Chronic Obstructive Pulmonary Disease (COPD): Yes Hx Pneumonia: Yes - NEUROLOGICAL Hx Transient Ischemic Attacks (TIA): Yes - HEENT Hx HEENT Problems: No - RENAL Hx Chronic Kidney Disease: Yes Hx Kidney Stones: Yes - ENDOCRINE/METABOLIC Hx Endocrine Disorders: No - HEMATOLOGICAL/ONCOLOGICAL Hx Blood Disorders: No - INTEGUMENTARY Hx Dermatological Problems: No - MUSCULOSKELETAL/RHEUMATOLOGICAL Hx Arthritis: Yes (neck) - GASTROINTESTINAL Hx Gastrointestinal Disorders: No - GENITOURINARY/GYNECOLOGICAL Hx Genitourinary Disorders: No - PSYCHIATRIC Hx Anxiety: Yes Hx Substance Use: No - SURGICAL HISTORY Hx Surgeries: Yes Other/Comment: foot surgery 30 years ago. surgery of right middle finger 8 years ago - ANESTHESIA Hx Anesthesia: Yes Hx Anesthesia Reactions: No Meds Allergies/Adverse Reactions: Allergies Allergy/AdvReac Type Severity Reaction Status Date / Time No Known Allergies Allergy Verified 09/21/17 14:50 Physical Exam - Constitutional Appears: No Acute Distress - Head Exam Head Exam: ATRAUMATIC, NORMAL INSPECTION - Eye Exam Eye Exam: EOMI, Normal appearance, PERRL - ENT Exam ENT Exam: Mucous Membranes Moist - Respiratory Exam Respiratory Exam: Rales (b/l), NORMAL BREATHING PATTERN. absent: Wheezes, Respiratory Distress - Cardiovascular Exam Cardiovascular Exam: REGULAR RHYTHM, +S1, +S2 - GI/Abdominal Exam GI & Abdominal Exam: Distended, Firm, Normal Bowel Sounds. absent: Mass, Soft, Tenderness - Extremities Exam Extremities exam: Positive for: pedal edema. Negative for: normal inspection, pedal pulses present (diminished due to edema) - Neurological Exam Neurological exam: Alert, Oriented x3 - Psychiatric Exam Psychiatric exam: Flat Affect - Skin Skin Exam: Dry, Intact, Warm Results - Vital Signs Recent Vital Signs: Last Vital Signs Temp 98 F 09/28/17 23:22 Pulse 74 09/29/17 00:15 Resp 20 09/28/17 23:22 BP 116/63 09/29/17 00:15 Pulse Ox 96 09/29/17 01:37 - Labs Result Diagrams: 09/29/17 00:29 09/29/17 00:29 Labs: Laboratory Results - last 24 hr 09/29/17 09/29/17 09/29/17 00:29 00:29 00:29 WBC 7.4 RBC 4.72 Hgb 14.0 Hct 39.8 MCV 84.5 MCH 29.6 MCHC 35.0 RDW 13.6 Plt Count 265 MPV 7.7 Neut % (Auto) 50.7 Lymph % (Auto) 37.6 Floyd % (Auto) 9.0 Eos % (Auto) 2.1 Baso % (Auto) 0.6 Neut # (Auto) 3.8 Lymph # (Auto) 2.8 Floyd # (Auto) 0.7 Eos # (Auto) 0.2 Baso # (Auto) 0.0 PT 10.6 INR 1.0 APTT 29 Sodium 137 Potassium 4.0 Chloride 101 Carbon Dioxide 29 Anion Gap 12 BUN 22 H Creatinine 1.2 Est GFR ( Amer) > 60 Est GFR (Non-Af Amer) > 60 Random Glucose 130 H Calcium 8.9 Total Bilirubin 0.2 AST 32 ALT 48 Alkaline Phosphatase 58 Troponin I < 0.0120 NT-Pro-B Natriuret Pep 43.5 Total Protein 6.8 Albumin 3.7 Globulin 3.1 Albumin/Globulin Ratio 1.2 Assessment & Plan (1) Chest pain Assessment and Plan: Chest pain resolved in ED Chest xray: f/u results EKG: nsr@84 Troponinx1: negative Troponinx2: f/u results Echo: f/u results A1c: f/u results Lipid panel: f/u results TSH/T4: f/u results Monitor of telemetry Status: Acute (2) COPD (chronic obstructive pulmonary disease) Assessment and Plan: Hx of asthma; patient does not use asthma medications at home Chest xray: f/u results Duoneb Q6h O2 via n/c prn Status: Acute (3) Bilateral lower extremity edema Assessment and Plan: Lasix 20mg IV ordered Venous dopplers b/l: f/u results ECHO: f/u results SCDs C/I due to LE edema Status: Acute (4) Prophylactic measure Assessment and Plan: DVT: Heparin 5000sc Q8; SCDs C/I due to LE edema GI: Protonix 40mg PO daily Heart Health Diet, 2 Na Status: Acute <Frandy Daniel Frederick - Last Filed: 09/29/17 06:30> Results - Vital Signs Recent Vital Signs: Last Vital Signs Temp 98 F 09/28/17 23:22 Pulse 64 09/29/17 03:54 Resp 20 09/29/17 03:54 BP 107/64 09/29/17 04:15 Pulse Ox 98 09/29/17 03:54 - Labs Result Diagrams: 09/29/17 00:29 09/29/17 00:29 Labs: Laboratory Results - last 24 hr 09/29/17 09/29/17 09/29/17 00:29 00:29 00:29 WBC 7.4 RBC 4.72 Hgb 14.0 Hct 39.8 MCV 84.5 MCH 29.6 MCHC 35.0 RDW 13.6 Plt Count 265 MPV 7.7 Neut % (Auto) 50.7 Lymph % (Auto) 37.6 Floyd % (Auto) 9.0 Eos % (Auto) 2.1 Baso % (Auto) 0.6 Neut # (Auto) 3.8 Lymph # (Auto) 2.8 Floyd # (Auto) 0.7 Eos # (Auto) 0.2 Baso # (Auto) 0.0 PT 10.6 INR 1.0 APTT 29 Sodium 137 Potassium 4.0 Chloride 101 Carbon Dioxide 29 Anion Gap 12 BUN 22 H Creatinine 1.2 Est GFR ( Amer) > 60 Est GFR (Non-Af Amer) > 60 Random Glucose 130 H Calcium 8.9 Total Bilirubin 0.2 AST 32 ALT 48 Alkaline Phosphatase 58 Troponin I < 0.0120 NT-Pro-B Natriuret Pep 43.5 Total Protein 6.8 Albumin 3.7 Globulin 3.1 Albumin/Globulin Ratio 1.2 Assessment & Plan - Date & Time Date: 09/29/17 (I have seen and examined the patient. I agree with the findings and plan of care as documented by Dr. Mccormick. Patient with chest pain. ROMIx3 with EKG. Aspirin and Statin. Check hemoglobin A1C. TSH. FLP. Patient also with history of COPD. No home meds. Oxygen and nebs for now. Monitor for acute changes.) Time: 06:29 Attending/Attestation - Attestation I have personally seen and examined this patient.: Yes I have fully participated in the care of the patient.: Yes I have reviewed all pertinent clinical information: Yes
[2017-09-29 07:05] LABS: MAGNESIUM 1.8 mg/dL (1.6-2.3)
[2017-09-29 07:17] LABS: CK-MB 0.63 ng/mL (0.0-3.38)
[2017-09-29 07:24] LABS: T4 6.93 ug/dL (5.5-11.0)
[2017-09-29] MEDS: Albuterol-Ipratrop 3 mg / 0.5 (3 ml) UD INH SCH ×3 (08:10→21:31)
--- NOTE | 2017-09-29 09:17 | RAD ---
Chest x-ray single frontal view History: Chest pain. Comparison: 05/05/2017 Findings: Mild venous congestion. Mild patchy increased markings in the right infrahilar region and left lung base. Mild cardiomegaly. Calcification at the aortic knob. Degenerative changes in spine and shoulders. Impression: Mild venous congestion. Mild patchy increased markings in the right infrahilar region and left lung base. Mild cardiomegaly. Calcification at the aortic knob.
[2017-09-29 09:59] LABS: SQUAMOUS EPITHIAL < 1 /hpf (0-5); URINE BILIRUBIN NEGATIVE (NEGATIVE); URINE BLOOD NEGATIVE (NEGATIVE); URINE CLARITY Clear (Clear); URINE COLOR Colorless (YELLOW); URINE GLUCOSE (UA) NORMAL (Normal); URINE LEUKOCYTE ESTERASE NEG Leu/uL (Negative); URINE NITRATE NEGATIVE (NEGATIVE); URINE PROTEIN NEGATIVE (NEGATIVE); URINE UROBILINOGEN NORMAL mg/dL (0.2-1.0)
[2017-09-29] MEDS: Pantoprazole 40 mg EC Tab PO SCH (10:01)
[2017-09-29 13:29] LABS: CK-MB 0.58 ng/mL (0.0-3.38)
--- NOTE | 2017-09-29 13:37 | CARD ---
APPROVED REPORT EXAM: Two-dimensional and M-mode echocardiogram with Doppler and color Doppler. Other Information Quality : GoodRhythm : INDICATION CVA/TIA Dyspnea Chest Pain DIZZINESS RISK FACTORS Diabetes 2D DIMENSIONS IVSd0.9 (0.7-1.1cm)LVDd4.8 (3.9-5.9cm) PWd1.1 (0.7-1.1cm)LVDs2.8 (2.5-4.0cm) FS (%) 42.1 %LVEF (%)73.1 (>50%) M-Mode DIMENSIONS Left Atrium (MM)3.20 (2.5-4.0cm)Aortic Root3.63 (2.2-3.7cm) Aortic Cusp Exc.2.59 (1.5-2.0cm) Mitral Valve MV E Wzxqwebz01.5cm/sMV A Uwvyjapx63.8cm/sE/A ratio0.9 TDI E/Lateral E'0.0E/Medial E'0.0 Tricuspid Valve TR Peak Bygidbbt282yz/sTR Peak Gr.68rcWiRIHG78lyWe LEFT VENTRICLE The left ventricle is normal size. There is normal left ventricular wall thickness. The left ventricular function is normal. The left ventricular ejection fraction is within the normal range. There is normal LV segmental wall motion. The left ventricular diastolic function is normal. No left ventricle thrombus noted on this study. There is no ventricular septal defect visualized. There is no left ventricular aneurysm. There is no mass noted in the left ventricle. RIGHT VENTRICLE The right ventricle is normal size. There is normal right ventricular wall thickness. The right ventricular systolic function is normal. ATRIA The left atrium size is normal. The right atrium size is normal. AORTIC VALVE The aortic valve is normal in structure. There is trace aortic regurgitation. There is no aortic valvular stenosis. There is no aortic valvular vegetation. MITRAL VALVE The mitral valve is normal in structure. There is no mitral valve stenosis. There is no mitral valve regurgitation noted. TRICUSPID VALVE The tricuspid valve is normal in structure. There is no tricuspid valve regurgitation noted. PULMONIC VALVE The pulmonary valve is normal in structure. There is trace pulmonic valvular regurgitation. GREAT VESSELS The aortic root is normal in size. The ascending aorta is normal in size. PERICARDIAL EFFUSION There is no pericardial effusion. <Conclusion> NOTMAL STUDY. LVEF IS ABOUT 70%.
[2017-09-29] MEDS ORDERED: Albuterol-Ipratrop 3 mg / 0.5 (3 ml) UD ONE (13:53)
--- NOTE | 2017-09-29 14:50 | CP.PCM.PN ---
Addendum entered and electronically signed by Fredi Marquez 09/29/17 15:29: Bilateral LE edema * Venous doppler negative for DVT Original Note: <Fredi Marquez - Last Filed: 09/29/17 15:14> Subjective - Date & Time of Evaluation Date of Evaluation: 09/29/17 Time of Evaluation: 09:05 - Subjective Subjective: Medicine progress note ( Dr. Petrona Marcano's service) Patient was seen and examined at bedside. Patient reports that he is doing well. Patient states that his symptoms are improving and denies chest pain, SOB , palpitations, abdominal pain, nausea, vomiting, fever, chills. Objective - Vital Signs/Intake and Output Vital Signs (last 24 hours): Temp Pulse Resp BP Pulse Ox 97.6 F 68 18 124/75 96 09/29/17 12:05 09/29/17 12:05 09/29/17 12:05 09/29/17 12:05 09/29/17 12:05 - Medications Medications: Current Medications Albuterol/Ipratropium (Duoneb 3 Mg/0.5 Mg (3 Ml) Ud) 3 ml INH RQ6 [facility] Last Admin: 09/29/17 14:02 Dose: 3 ml Aspirin (Aspirin Chewable) 81 mg PO DAILY [facility] Last Admin: 09/29/17 10:01 Dose: 81 mg Heparin Sodium (Porcine) (Heparin) 5,000 units SC Q8 [facility] Last Admin: 09/29/17 14:02 Dose: 5,000 units Pantoprazole Sodium (Protonix Ec Tab) 40 mg PO DAILY [facility] Last Admin: 09/29/17 10:01 Dose: 40 mg Rosuvastatin Calcium (Crestor) 20 mg PO HS [facility] - Labs Labs: 09/29/17 00:29 09/29/17 00:29 PT 10.6 SECONDS (9.7-12.2) 09/29/17 00:29 INR 1.0 09/29/17 00:29 APTT 29 SECONDS (21-34) 09/29/17 00:29 - Constitutional Appears: Well, No Acute Distress - Head Exam Head Exam: ATRAUMATIC, NORMAL INSPECTION - Eye Exam Eye Exam: EOMI - ENT Exam ENT Exam: Mucous Membranes Moist - Respiratory Exam Respiratory Exam: Clear to Ausculation Bilateral, NORMAL BREATHING PATTERN. absent: Prolonged Expiratory Phase, Rhonchi, Wheezes, Respiratory Distress - Cardiovascular Exam Cardiovascular Exam: REGULAR RHYTHM, +S1, +S2 - GI/Abdominal Exam GI & Abdominal Exam: Soft, Normal Bowel Sounds. absent: Distended, Rigid, Tenderness - Extremities Exam Extremities Exam: Normal Inspection. absent: Calf Tenderness, Pedal Edema - Back Exam Back Exam: absent: CVA tenderness (L), CVA tenderness (R) - Neurological Exam Neurological Exam: Alert, Awake, Oriented x3 - Psychiatric Exam Psychiatric exam: Normal Affect - Skin Skin Exam: Normal Color Assessment and Plan (1) Chest pain Assessment & Plan: [facility], Dr. Moura---> Help appreciated R/O ACS Labs: Troponin negative X3 HgbA1C: 6.9 Lipid Panel: TGL:227, Cholesterol: 180, LDL: 87 and HDL: 56 TSH and Free T4: WNL Imaging: Echocardiogram (09/29/17): LVEF: 70%, Normal study, please refer to report for complete impression EKG on admission: nsr@84 Chest X-ray (09/29/17): Mild venous congestion. Mild patchy increased markings in the right infrahilar region and left lung base. Mild cardiomegaly. Calcification at the aortic knob. Management/Medications: * Aspirin 81mg PO daily * Crestor 20mg PO daily Status: Acute (2) Shortness of breath Assessment & Plan: Improved Hx of COPD and Asthma * Albuterol 3ml INH RQ6H * Lasix once (09/29/17) Chest X-ray (09/29/17): Mild venous congestion. Mild patchy increased markings in the right infrahilar region and left lung base. Mild cardiomegaly. Calcification at the aortic knob. Status: Acute (3) Hyperlipidemia Assessment & Plan: Lipid Panel: TGL:227, Cholesterol: 180, LDL: 87 and HDL: 56 Management/Medications: * Crestor 20mg PO daily Status: Chronic (4) Diabetes mellitus Assessment & Plan: HgbA1C: 6.9 Medication: * Metformin 500mg PO bid Status: Acute (5) Bilateral lower extremity edema Assessment & Plan: Venous dopplers b/l: awaiting official report ECHO: LVEF: 70%, Normal study, please refer to report for complete impression Lasix 20mg IV once (09/28/17) Status: Acute (6) Prophylactic measure Assessment & Plan: GI: Protonix 40mg PO daily DVT: Heparin 5000units SC Q8; SCDs C/I due to LE edema Heart Health Diet, 2 Na All plans and management discussed with attending, Dr. Petrona marcano Status: Acute <Jose Marcano - Last Filed: 09/29/17 18:46> Objective - Vital Signs/Intake and Output Vital Signs (last 24 hours): Temp Pulse Resp BP Pulse Ox 97.9 F 73 18 114/62 96 09/29/17 16:34 09/29/17 16:34 09/29/17 16:34 09/29/17 16:34 09/29/17 16:34 - Medications Medications: Current Medications Albuterol/Ipratropium (Duoneb 3 Mg/0.5 Mg (3 Ml) Ud) 3 ml INH RQ6 [facility] Last Admin: 09/29/17 14:02 Dose: 3 ml Aspirin (Aspirin Chewable) 81 mg PO DAILY [facility] Last Admin: 09/29/17 10:01 Dose: 81 mg Heparin Sodium (Porcine) (Heparin) 5,000 units SC Q8 [facility] Last Admin: 09/29/17 14:02 Dose: 5,000 units Metformin HCl (Glucophage) 500 mg PO DAILY@0800 [facility] Pantoprazole Sodium (Protonix Ec Tab) 40 mg PO DAILY [facility] Last Admin: 09/29/17 10:01 Dose: 40 mg Rosuvastatin Calcium (Crestor) 20 mg PO HS [facility] - Labs Labs: 09/29/17 00:29 09/29/17 00:29 PT 10.6 SECONDS (9.7-12.2) 09/29/17 00:29 INR 1.0 09/29/17 00:29 APTT 29 SECONDS (21-34) 09/29/17 00:29 Attending/Attestation - Attestation I have personally seen and examined this patient.: Yes I have fully participated in the care of the patient.: Yes I have reviewed all pertinent clinical information, including history, physical exam and plan: Yes Notes (Text): 09/29/17 18:45 Patient was seen in the Emergency Room at 8 AM. Exam, assessment and plan were gone over with the resident. Jose Marcano D.O.
--- NOTE | 2017-09-29 15:18 | VASCLAB ---
PROCEDURE: Lower Extremity Venous Duplex Exam. HISTORY: LE pain, swelling PRIORS: 03/28/2017, normal. TECHNIQUE: Bilateral common femoral, femoral, popliteal and posterior tibial, peroneal and great saphenous veins were evaluated. Flow was assessed with color Doppler, compressibility, assessment of phasic flow and augmentation response. Report prepared by ANGIE Nascimento FINDINGS: RIGHT: 1. Common Femoral Vein: 1.1. Compressibility - Fully compressible: Thrombus - None : Flow - Phasic: Augmentation -Normal: Reflux - None. 2. Femoral Vein: 2.1. Compressibility - Fully compressible: Thrombus - None : Flow - Phasic: Augmentation -Normal: Reflux - None. 3. Popliteal Vein: 3.1. Compressibility - Fully compressible: Thrombus - None : Flow - Phasic: Augmentation -Normal: Reflux - None. 4. Posterior Tibial Vein: 4.1. Compressibility - Fully compressible: Thrombus - None: Flow - Phasic: Augmentation -Normal: Reflux - None. 5. Peroneal Vein: 5.1. Compressibility - Fully compressible: Thrombus - None: Flow - Phasic: Augmentation -Normal: Reflux - None. 6. Great Saphenous Vein: 6.1. Compressibility - Fully compressible: Thrombus - None: Flow - Phasic: Augmentation - Normal: Reflux - None. LEFT: 1. Common Femoral Vein: 1.1. Compressibility - Fully compressible: Thrombus - None: Flow - Phasic: Augmentation -Normal: Reflux - None. 2. Femoral Vein: 2.1. Compressibility - Fully compressible: Thrombus - None: Flow - Phasic: Augmentation -Normal: Reflux - None. 3. Popliteal Vein: 3.1. Compressibility - Fully compressible: Thrombus - None : Flow - Phasic: Augmentation -Normal: Reflux - None. 4. Posterior Tibial Vein: 4.1. Compressibility - Fully compressible: Thrombus - None: Flow - Phasic: Augmentation -Normal: Reflux - None. 5. Peroneal Vein: 5.1. Compressibility - Fully compressible: Thrombus - None: Flow - Phasic: Augmentation -Normal: Reflux - None. 6. Great Saphenous Vein: 6.1. Compressibility - Fully compressible: Thrombus - None: Flow - Phasic: Augmentation - Normal: Reflux - None. OTHER FINDINGS: Right: Enlarged lymph node noted in the right groin, measuring 3.43 x 0.91 c.m. Left: None significant. IMPRESSION: Right: No evidence of deep or superficial vein thrombosis of the right lower extremity. Normal valve function noted of the right side. Left: No evidence of deep or superficial vein thrombosis of the left lower extremity. Normal valve function noted of the left side.
[2017-09-30] MEDS: Albuterol-Ipratrop 3 mg / 0.5 (3 ml) UD INH SCH (01:29)
--- NOTE | 2017-09-30 02:43 | CON ---
DATE: CARDIOLOGY CONSULTATION REQUESTED BY: Hospitalist Dr. pietro . Presently in the emergency room awaiting admission for observation, bed not assigned yet. HISTORY OF PRESENT ILLNESS: Requested to see this 62 years old male admitted with shortness of breath as well as some atypical chest pain. According to him, for the last several days, he was coming down with the cold, he felt he had a fever, he was coughing and yesterday last night he was little short of breath, came to the emergency room, where apparently with some highly atypical chest pain. At this point in time, he feels fine. There is no pain whatsoever any place. He was taking nebulizer treatment when I got there, he feels much, much better. PAST MEDICAL HISTORY: Includes borderline hypertension as well as borderline diabetes, chronic asthma which sound probably on the line of COPD; however, he has stopped taking medications in the past due to some economical problems. He denies any dizziness or syncope and at times he has noticed some slight edema, swelling of both feet and ankles. REVIEW OF SYSTEMS: From the cardiopulmonary view point, the shortness of breath as well as some cough and fever he had yesterday before. No chest pain, at least to me told me that he did not have any chest discomfort. No dizziness, PND or orthopnea. Rest of the review of systems otherwise negative except that he had some diarrhea after he ate some kind of foods, I did not catch all those details about it. SOCIAL HISTORY: He used to smoke, stopped, and he has started again about a year ago, and now he has stopped again. He used to drink quite heavily years back and he claimed that he stopped also several years ago. ALLERGIES: NO ALLERGIES TO MEDICATIONS. MEDICATIONS: On arrival here, he was taking no medications. He stopped the medications for "his lung problems." PHYSICAL EXAMINATION: GENERAL: Reveals an obese, elderly although looking younger for his stated age. When I got there, he was on the telephone and that he was actually just finishing his nebulizer treatment and he feels quite well. VITAL SIGNS: Had been totally stable here since arrival. Blood pressure in the range of about 120/70, 114/62, afebrile, respiratory rate, oxygen saturation etc., all within physiological parameters. SKIN: Warm and dry. There is only perhaps a tint of edema in both feet, but at this point in time I think it is immaterial, almost nil. HEENT: Head, ears, nose, and throat stable for his age. NECK: Supple. No lymphadenopathy or thyromegaly. CHEST: Show symmetrical expansion. LUNGS: Lung bearden with some bibasal fine crepitations or subcrepitations. No wheezing. CARDIOLOGIC: His jugular veins and carotids are normal. Precordium with no thrills. Auscultation revealed heart sounds normal in intensity minimally, but holosystolic ejection murmur. ABDOMEN: Obese. No localized tenderness at this point of time. No gross organomegaly. SKI TOW OPERATOR: Alert and oriented, no focal deficits. COMPLEMENTARY DATA: From the cardiological view point, two EKGs showing sinus rhythm and borderline LVH or voltage criteria for LVH. No ischemic changes. Three troponins negative. An echocardiogram just reviewed showing some normal left ventricular function, no evidence of any wall motion abnormality. Right ventricle is also normal. There is a trace of aortic mitral and pulmonary regurgitation basically immaterial, mild, tricuspid regurgitation with normal pulmonary pressure. Tissue Doppler showing normal left atrial pressure also. Chest x-ray was poor inspiratory film, borderline cardiomegaly, perhaps this was poor inspiration and only AP picture is available. The rest of the complementary data basically unremarkable. Mildly elevated hemoglobin A1c at 6.9. IMPRESSION: 1. Chronic pulmonary disease with perhaps slight exacerbation, viral syndrome, etc. 2. Hypertension and diabetes with normal biventricular function. The possibility of mild diastolic dysfunction cannot be totally excluded, but the pressures at this point of time are normal. SUGGESTION: Continue pulmonary support, he is getting his nebulizer treatment now. From the cardiological view point, at this moment he is stable and can be discharged as soon as cleared by the medical department. No need for any further cardiologic investigations on inpatient. I advised him to go the clinic and if situation continues, then will consider stress testing as an outpatient. Obviously, he will continue diet, exercise, and control his diabetes as well as hypercholesterolemia and needless to say that he should stop smoking again. Paul Moura MD
[2017-09-30 07:18] LABS: BASO % 0.4 % (0.0-2.0); EOS # 0.1 K/uL (0.0-0.7); EOS % 1.6 % (0.0-4.0); HEMOGLOBIN 14.1 g/dL (12.0-18.0); LYMPH # 1.9 K/uL (1.0-4.3); LYMPH % 26.8 % (20.0-40.0); MEAN CORPUSCULAR HEMOGLOBIN 29.9 pg (27.0-31.0); MEAN CORPUSCULAR HGB CONC 35.6 g/dL (33.0-37.0); MEAN PLATELET VOLUME 7.7 fL (7.2-11.7); MONO # 0.6 K/uL (0.0-0.8); MONO % 8.5 % (0.0-10.0); NEUT # 4.5 K/uL (1.8-7.0); NEUT % 62.7 % (50.0-75.0); RBC 4.72 Mil/uL (4.40-5.90); RED CELL DISTRIBUTION WIDTH 13.6 % (11.5-14.5); WHITE BLOOD COUNT 7.1 K/uL (4.8-10.8)
[2017-09-30 07:50] LABS: ALB/GLOB RATIO 1.2 (1.0-2.1); ALBUMIN 3.6 g/dL (3.5-5.0); ALT/SGPT 47 U/L (21-72); AST/SGOT 31 U/L (17-59); BLOOD UREA NITROGEN 21 mg/dL (9-20); CALCIUM 9.2 mg/dl (8.6-10.4); GFR AFRICAN-AMERICAN > 60; GFR NON-AFRICAN AMERICAN > 60
[2017-09-30 08:35] VITALS: PULSE 64
--- NOTE | 2017-09-30 09:15 | CP.PCM.PN ---
Subjective - Date & Time of Evaluation Date of Evaluation: 09/30/17 Time of Evaluation: 09:00 - Subjective Subjective: Hospitalist Progress Note Patient was seen and examined at 9 AM 09/30/17 Bed 658 A Upon FULL ROS NO dysphagia/odynopahgia NO soreness in throat Cough is dry and nonproductive NO sinus/nasal congestion NO fever/chills NO muscle aches/pains NO joint pain NO chest pain/palpations SOB present but better than yesterday NO abdominal pain NO n/v/d/c NO burning pain with urination NO BR[place]FORD Exam: General: AAOX3, NAD, NO longer using O2, speaking in full sentences, NO signs of respiratory distress HEENT: NCA, EOMI, PERRLA, NO cervical/supraclavicular/submandibular lymphadenopathy, NO pharyngeal erythema/exudate, Nasal Turbinates are nonerythematous/nonedematous, Oral Mucosa is moist Cardio: NS1 and NS2, NO M/R/G Resp: CTA B/L, NO R/R/W GI: BSx4, Soft, NT, NO HSM, NO guarding/rebound tenderness Ext: Pulses are strong and equal, Capillary Refill is 2 seconds, Trace NON- pitting edema of the bilateral lower legs Neuro: CN II through XII are grossly intact Bilateral Venous Dopplers of LE are NEGATIVE for DVT. Echocardiogram shows normal EF and is unremarkable Chest X Ray showed Cardiomegaly and Mild Venous Congestion. Troponin x 3 are negative Vitals are stable Patient seen by In[employer] Dr. Xiomara Moura and has been cleared for discharge. The following instructions were explained to patient and copy will need to be printed to give to patient upon discharge: 1). Schedule follow up with the [facility] located at [facility] Floor [address] at [address] [place] [address] in [place], [place] by calling [phone] for an appointment to take place in the next 7 to 10 days. You stated that you do not have a primary care physician and this health center will be your primary care that will help to coordinate your health care and provide future prescriptions for your to fill at your pharmacy. 2). You must get at least 30 minutes of dedicated Cardiovascular exercise at least 5 times per week to help you to lose weight. Please also follow the recommendations provided to you by the photograph developer for a Diabetic Diet. 3). You were provided with the following prescriptions and please use them as directed: Breo Ellipta 25/100 mcg, 1 inhalation by mouth 1x/day (with breakfast), Dispense #1, NO refills Albuterol 90 mcg/actuation, 2 inhalations by mouth every 6 hours ONLY NEEDED for severe shortness of breath/wheezing, Dispense #1, NO refills Aspirin 81 mg, 1 tablet by mouth 1x/day (with breakfast), Dispense #30, NO refills Metformin 500 mg, 1 tablet by mouth 1x/day (with breakfast), Dispense #30, NO refills Atorvastatin 10 mg, 1 tablet by mouth 1x/day (with dinner), Dispense #30, NO refills Linsinopril 2.5 mg, 1 tablet by mouth 1x/day (with breakfast), Dispense #30, NO refills 4). Please take care and be well. Jose Haque D.O. Objective - Vital Signs/Intake and Output Vital Signs (last 24 hours): Temp Pulse Resp BP Pulse Ox 98.5 F 64 20 111/69 96 09/29/17 23:35 09/30/17 07:00 09/29/17 23:35 09/29/17 23:35 09/29/17 23:35 Intake and Output: 09/30/17 09/30/17 06:59 18:59 Intake Total 120 Balance 120 - Medications Medications: Current Medications Albuterol/Ipratropium (Duoneb 3 Mg/0.5 Mg (3 Ml) Ud) 3 ml INH RQ6 [facility] Last Admin: 09/30/17 01:29 Dose: Not Given Aspirin (Aspirin Chewable) 81 mg PO DAILY [facility] Last Admin: 09/29/17 10:01 Dose: 81 mg Heparin Sodium (Porcine) (Heparin) 5,000 units SC Q8 [facility] Last Admin: 09/30/17 05:42 Dose: 5,000 units Lisinopril (Zestril) 2.5 mg PO DAILY [facility] Metformin HCl (Glucophage) 500 mg PO DAILY@0800 [facility] Last Admin: 09/30/17 08:05 Dose: 500 mg Pantoprazole Sodium (Protonix Ec Tab) 40 mg PO DAILY [facility] Last Admin: 09/29/17 10:01 Dose: 40 mg Rosuvastatin Calcium (Crestor) 20 mg PO HS [facility] Last Admin: 09/29/17 22:15 Dose: 20 mg - Labs Labs: 09/30/17 06:55 09/30/17 06:55 PT 10.6 SECONDS (9.7-12.2) 09/29/17 00:29 INR 1.0 09/29/17 00:29 APTT 29 SECONDS (21-34) 09/29/17 00:29
[2017-09-30] MEDS: Pantoprazole 40 mg EC Tab PO SCH (09:34)
--- NOTE | 2017-09-30 10:39 | CP.PCM.DIS ---
<Rachell Navarro - Last Filed: 09/30/17 11:31> Provider - Provider Date of Admission: 09/29/17 01:27 Attending physician: Frandy Daniel MD Time Spent in preparation of Discharge (in minutes): 55 Hospital Course - Lab Results Lab Results: Most Recent Lab Values WBC 7.1 K/uL (4.8-10.8) 09/30/17 06:55 RBC 4.72 Mil/uL (4.40-5.90) 09/30/17 06:55 Hgb 14.1 g/dL (12.0-18.0) 09/30/17 06:55 Hct 39.7 % (35.0-51.0) 09/30/17 06:55 MCV 84.0 fL (80.0-94.0) 09/30/17 06:55 MCH 29.9 pg (27.0-31.0) 09/30/17 06:55 MCHC 35.6 g/dL (33.0-37.0) 09/30/17 06:55 RDW 13.6 % (11.5-14.5) 09/30/17 06:55 Plt Count 258 K/uL (130-400) 09/30/17 06:55 MPV 7.7 fL (7.2-11.7) 09/30/17 06:55 Neut % (Auto) 62.7 % (50.0-75.0) 09/30/17 06:55 Lymph % (Auto) 26.8 % (20.0-40.0) 09/30/17 06:55 Angelina % (Auto) 8.5 % (0.0-10.0) 09/30/17 06:55 Eos % (Auto) 1.6 % (0.0-4.0) 09/30/17 06:55 Baso % (Auto) 0.4 % (0.0-2.0) 09/30/17 06:55 Neut # (Auto) 4.5 K/uL (1.8-7.0) 09/30/17 06:55 Lymph # (Auto) 1.9 K/uL (1.0-4.3) 09/30/17 06:55 Angelina # (Auto) 0.6 K/uL (0.0-0.8) 09/30/17 06:55 Eos # (Auto) 0.1 K/uL (0.0-0.7) 09/30/17 06:55 Baso # (Auto) 0.0 K/uL (0.0-0.2) 09/30/17 06:55 PT 10.6 SECONDS (9.7-12.2) 09/29/17 00:29 INR 1.0 09/29/17 00:29 APTT 29 SECONDS (21-34) 09/29/17 00:29 Sodium 135 mmol/L (132-148) 09/30/17 06:55 Potassium 4.2 mmol/L (3.6-5.2) 09/30/17 06:55 Chloride 100 mmol/L (98-107) 09/30/17 06:55 Carbon Dioxide 26 mmol/L (22-30) 09/30/17 06:55 Anion Gap 14 (10-20) 09/30/17 06:55 BUN 21 mg/dL (9-20) H 09/30/17 06:55 Creatinine 0.9 mg/dL (0.8-1.5) 09/30/17 06:55 Est GFR ( Amer) > 60 09/30/17 06:55 Est GFR (Non-Af Amer) > 60 09/30/17 06:55 POC Glucose (mg/dL) 126 mg/dL (65-110) H 09/30/17 06:28 Random Glucose 128 mg/dL (75-110) H 09/30/17 06:55 Hemoglobin A1c 6.9 % (4.2-6.5) H 09/29/17 06:46 Calcium 9.2 mg/dl (8.6-10.4) 09/30/17 06:55 Phosphorus 3.4 mg/dL (2.5-4.5) 09/30/17 06:55 Magnesium 2.0 mg/dL (1.6-2.3) 09/30/17 06:55 Total Bilirubin 0.3 mg/dL (0.2-1.3) 09/30/17 06:55 AST 31 U/L (17-59) 09/30/17 06:55 ALT 47 U/L (21-72) 09/30/17 06:55 Alkaline Phosphatase 60 U/L (38-126) 09/30/17 06:55 Total Creatine Kinase 72 U/L (55-170) 09/29/17 13:01 CK-MB (Mass) 0.58 ng/mL (0.0-3.38) 09/29/17 13:01 Troponin I < 0.0120 ng/mL (0.00-0.120) 09/29/17 13:01 NT-Pro-B Natriuret Pep 43.5 pg/mL (0-900) 09/29/17 00:29 Total Protein 6.6 g/dL (6.3-8.3) 09/30/17 06:55 Albumin 3.6 g/dL (3.5-5.0) 09/30/17 06:55 Globulin 3.0 gm/dL (2.2-3.9) 09/30/17 06:55 Albumin/Globulin Ratio 1.2 (1.0-2.1) 09/30/17 06:55 Triglycerides 227 mg/dL (0-149) H 09/29/17 06:46 Cholesterol 180 mg/dL (0-199) 09/29/17 06:46 LDL Cholesterol Direct 87 mg/dL (0-129) 09/29/17 06:46 HDL Cholesterol 36 mg/dL (30-70) 09/29/17 06:46 Thyroxine (T4) 6.93 ug/dL (5.5-11.0) 09/29/17 06:46 TSH 3rd Generation 2.07 mIU/L (0.46-4.68) 09/29/17 06:46 Urine Color Colorless (YELLOW) 09/29/17 09:48 Urine Clarity Clear (Clear) 09/29/17 09:48 Urine pH 5.0 (5.0-8.0) 09/29/17 09:48 Ur Specific [place] 1.009 (1.003-1.030) 09/29/17 09:48 Urine Protein Negative mg/dL (NEGATIVE) 09/29/17 09:48 Urine Glucose (UA) Normal mg/dL (Normal) 09/29/17 09:48 Urine Ketones Negative mg/dL (NEGATIVE) 09/29/17 09:48 Urine Blood Negative (NEGATIVE) 09/29/17 09:48 Urine Nitrate Negative (NEGATIVE) 02/22/18 09:48 Urine Bilirubin Negative (NEGATIVE) 09/29/17 09:48 Urine Urobilinogen Normal mg/dL (0.2-1.0) 09/29/17 09:48 Ur Leukocyte Esterase Neg Rudolph/uL (Negative) 09/29/17 09:48 Ur Squamous Epith Cells < 1 /hpf (0-5) 09/29/17 09:48 - Hospital Course Hospital Course: Upon Admission: CC: Chest Pressure and SOB HPI: A 62 year old male with a past medical history of asthma, HLD, borderline DM, and TIA, presents to the ED with bilateral chest pressure and shortness of breath that started Tuesday morning. He states that he woke up due to the pressure, and that it lasted for 5 minutes. It later returned in the afternoon and was the same pressure in severity. He also complained of fevers, headaches, lightheadedness and shortness of breath during these episodes. The patient states that the pressure is localized to his chest and was a 7/10. The patient' s friend drove him to the hospital because the pressure felt too uncomfortable and he was SOB. He states that he's had mild episodes of similar chest pressure for years. Patient also states he had an episode of diarrhea after eating lunch (broccoli, cauliflower) yesterday. In the ED, patient no longer complains of chest pressure, shortness of breath or lightheadedness. Patient currently denies abdominal pain, n/v, chills, d/c, palpitations, dysuria, and headaches. 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 Family Hx: 12 Uncles with HD/Stroke, Mother had DM and from lung cancer Allergies: None, NKDA Medications: Asthma medications in the past but stopped taking them. Throughout Hospital Course: Patient was admitted on 09/29/17 for chest pain, shortness of breath and bilateral lower extremity edema. EKG showed NSR at 84bpm. Chest x-ray noted below. Troponins were negative x 3. Echocardiogram was normal as noted below. TSH and Free T4 were within normal range. Emergency Management System Director Dr. Paul Moura was consulted and evaluated the patient; he recommended no further inpatient cardiac investigations, and outpatient follow- up in the clinic for possible outpatient stress test. He also recommended continued pulmonary support, diet, exercise, diabetes control, hypercholesterolemia control and smoking cessation. Patient discharged on Aspirin 81 mg PO daily, Lisinopril 2.5mg PO daily. Shortness of breath likely due to patient's history of asthma and COPD. He was treated with Albuterol PRN and Lasix once on 09/29/17. Patient had good improvement in symptoms and was discharged on Ventolin HFA 90mcg/actuation and Breo Ellipta 100-25 mcg INH. Patient was counseled on appropriate albuterol use. Venous duplex of the bilateral lower extremities was negative for superficial or deep vein thrombosis as noted below. Hemoglobin A1c noted for be 6.9. Patient discharged on Metformin 500mg daily and counseled on diabetic diet. Lipid panel noted: Triglycerides 227, Cholesterol 180, LDL 87, HDL 56. Patient started on Crestor 20mg PO daily inpatient and discharged on Lipitor 10mg PO daily at night. Patient was discharged on 09/30/17 with instructions for appropriate follow-up and medications as noted above. Relevant imaging: Chest x-ray (09/29/17): Mild venous congestion. Mild patchy increased markings in the right infrahilar region and left lung base. Mild cardiomegaly. Calcification at the aortic knob. Venous Duplex Scan Bilateral Lower Extremities (09/29/17): Right: No evidence of deep or superficial vein thrombosis of the right lower extremity. Normal valve function noted of the right side. Left: No evidence of deep or superficial vein thrombosis of the left lower extremity. Normal valve function noted of the left side. Echocardiogram (09/29/17): Normal study. LVEF is about 70%. Discharge Exam - Additional Findings Additional findings: - Constitutional Appears: Well, No Acute Distress - Head Exam Head Exam: ATRAUMATIC, NORMAL INSPECTION - Eye Exam Eye Exam: EOMI - ENT Exam ENT Exam: Mucous Membranes Moist - Respiratory Exam Respiratory Exam: Clear to Ausculation Bilateral, NORMAL BREATHING PATTERN. absent: Prolonged Expiratory Phase, Rhonchi, Wheezes, Respiratory Distress - Cardiovascular Exam Cardiovascular Exam: REGULAR RHYTHM, +S1, +S2 - GI/Abdominal Exam GI & Abdominal Exam: Soft, Normal Bowel Sounds. absent: Distended, Rigid, Tenderness - Extremities Exam Extremities Exam: Normal Inspection. absent: Calf Tenderness, Pedal Edema - Back Exam Back Exam: absent: CVA tenderness (L), CVA tenderness (R) - Neurological Exam Neurological Exam: Alert, Awake, Oriented x3 - Psychiatric Exam Psychiatric exam: Normal Affect - Skin Skin Exam: Normal Color Discharge Plan - Discharge Medications Prescriptions: Albuterol HFA [Ventolin HFA 90 mcg/actuation (8 g)] 2 puff IH Q6 PRN #1 inhaler PRN Reason: Wheezing Aspirin [Aspirin Chewable] 81 mg PO DAILY #30 chew Atorvastatin [Lipitor] 10 mg PO DIN #30 tab Fluticasone/Vilanterol [Breo Ellipta 100-25 Mcg INH] 1 each IH QAM #1 blst.w.dev Lisinopril [Zestril] 2.5 mg PO DAILY #30 tab metFORMIN [glucOPHAGE] 500 mg PO DAILY@0800 #30 tab - Follow Up Plan Condition: FAIR Disposition: HOME/ ROUTINE Instructions: Carbohydrate Counting Diet, Diabetes Diet , Albuterol, Aspirin, Atorvastatin, Fluticasone and Vilanterol, Lisinopril, Metformin, Foot Care for Diabetics Additional Instructions: 1). Schedule follow up with the [facility] located at [facility] Floor [address] at [address] [place] [address] in [place], [place] by calling [phone] for an appointment to take place in the next 7 to 10 days. You stated that you do not have a primary care physician and this health center will be your primary care that will help to coordinate your health care and provide future prescriptions for your to fill at your pharmacy. Please follow with [facility] in order to establish primary care and referral to flight operations specialist for PFTs and senior technical specialist 2). You must get at least 30 minutes of dedicated Cardiovascular exercise at least 5 times per week to help you to lose weight. Please also follow the recommendations provided to you by the screen handler for a Diabetic Diet. 3). You were provided with the following prescriptions and please use them as directed: Breo Ellipta 25/100 mcg, 1 inhalation by mouth 1x/day (with breakfast), Dispense #1, NO refills Albuterol 90 mcg/actuation, 2 inhalations by mouth every 6 hours ONLY NEEDED for severe shortness of breath/wheezing, Dispense #1, NO refills Aspirin 81 mg, 1 tablet by mouth 1x/day (with breakfast), Dispense #30, NO refills Metformin 500 mg, 1 tablet by mouth 1x/day (with breakfast), Dispense #30, NO refills Atorvastatin 10 mg, 1 tablet by mouth 1x/day (with dinner), Dispense #30, NO refills Linsinopril 2.5 mg, 1 tablet by mouth 1x/day (with breakfast), Dispense #30, NO refills Referrals: [facility] [Outside] Paul Moura MD [Staff Provider] - <Jose Haque - Last Filed: 09/30/17 19:25> Provider - Provider Date of Admission: 09/29/17 01:27 Attending physician: Frandy Daniel MD Hospital Course - Lab Results Lab Results: Most Recent Lab Values WBC 7.1 K/uL (4.8-10.8) 09/30/17 06:55 RBC 4.72 Mil/uL (4.40-5.90) 09/30/17 06:55 Hgb 14.1 g/dL (12.0-18.0) 09/30/17 06:55 Hct 39.7 % (35.0-51.0) 09/30/17 06:55 MCV 84.0 fL (80.0-94.0) 09/30/17 06:55 MCH 29.9 pg (27.0-31.0) 09/30/17 06:55 MCHC 35.6 g/dL (33.0-37.0) 09/30/17 06:55 RDW 13.6 % (11.5-14.5) 09/30/17 06:55 Plt Count 258 K/uL (130-400) 09/30/17 06:55 MPV 7.7 fL (7.2-11.7) 09/30/17 06:55 Neut % (Auto) 62.7 % (50.0-75.0) 09/30/17 06:55 Lymph % (Auto) 26.8 % (20.0-40.0) 09/30/17 06:55 Angelina % (Auto) 8.5 % (0.0-10.0) 09/30/17 06:55 Eos % (Auto) 1.6 % (0.0-4.0) 09/30/17 06:55 Baso % (Auto) 0.4 % (0.0-2.0) 09/30/17 06:55 Neut # (Auto) 4.5 K/uL (1.8-7.0) 09/30/17 06:55 Lymph # (Auto) 1.9 K/uL (1.0-4.3) 09/30/17 06:55 Angelina # (Auto) 0.6 K/uL (0.0-0.8) 09/30/17 06:55 Eos # (Auto) 0.1 K/uL (0.0-0.7) 09/30/17 06:55 Baso # (Auto) 0.0 K/uL (0.0-0.2) 09/30/17 06:55 PT 10.6 SECONDS (9.7-12.2) 09/29/17 00:29 INR 1.0 09/29/17 00:29 APTT 29 SECONDS (21-34) 09/29/17 00:29 Sodium 135 mmol/L (132-148) 09/30/17 06:55 Potassium 4.2 mmol/L (3.6-5.2) 09/30/17 06:55 Chloride 100 mmol/L (98-107) 09/30/17 06:55 Carbon Dioxide 26 mmol/L (22-30) 09/30/17 06:55 Anion Gap 14 (10-20) 09/30/17 06:55 BUN 21 mg/dL (9-20) H 09/30/17 06:55 Creatinine 0.9 mg/dL (0.8-1.5) 09/30/17 06:55 Est GFR ( Amer) > 60 09/30/17 06:55 Est GFR (Non-Af Amer) > 60 09/30/17 06:55 POC Glucose (mg/dL) 199 mg/dL (65-110) H 09/30/17 11:34 Random Glucose 128 mg/dL (75-110) H 09/30/17 06:55 Hemoglobin A1c 6.9 % (4.2-6.5) H 09/29/17 06:46 Calcium 9.2 mg/dl (8.6-10.4) 09/30/17 06:55 Phosphorus 3.4 mg/dL (2.5-4.5) 09/30/17 06:55 Magnesium 2.0 mg/dL (1.6-2.3) 09/30/17 06:55 Total Bilirubin 0.3 mg/dL (0.2-1.3) 09/30/17 06:55 AST 31 U/L (17-59) 09/30/17 06:55 ALT 47 U/L (21-72) 09/30/17 06:55 Alkaline Phosphatase 60 U/L (38-126) 09/30/17 06:55 Total Creatine Kinase 72 U/L (55-170) 09/29/17 13:01 CK-MB (Mass) 0.58 ng/mL (0.0-3.38) 09/29/17 13:01 Troponin I < 0.0120 ng/mL (0.00-0.120) 09/29/17 13:01 NT-Pro-B Natriuret Pep 43.5 pg/mL (0-900) 09/29/17 00:29 Total Protein 6.6 g/dL (6.3-8.3) 09/30/17 06:55 Albumin 3.6 g/dL (3.5-5.0) 09/30/17 06:55 Globulin 3.0 gm/dL (2.2-3.9) 09/30/17 06:55 Albumin/Globulin Ratio 1.2 (1.0-2.1) 09/30/17 06:55 Triglycerides 227 mg/dL (0-149) H 09/29/17 06:46 Cholesterol 180 mg/dL (0-199) 09/29/17 06:46 LDL Cholesterol Direct 87 mg/dL (0-129) 09/29/17 06:46 HDL Cholesterol 36 mg/dL (30-70) 09/29/17 06:46 Thyroxine (T4) 6.93 ug/dL (5.5-11.0) 09/29/17 06:46 TSH 3rd Generation 2.07 mIU/L (0.46-4.68) 09/29/17 06:46 Urine Color Colorless (YELLOW) 09/29/17 09:48 Urine Clarity Clear (Clear) 09/29/17 09:48 Urine pH 5.0 (5.0-8.0) 09/29/17 09:48 Ur Specific [place] 1.009 (1.003-1.030) 09/29/17 09:48 Urine Protein Negative mg/dL (NEGATIVE) 09/29/17 09:48 Urine Glucose (UA) Normal mg/dL (Normal) 09/29/17 09:48 Urine Ketones Negative mg/dL (NEGATIVE) 09/29/17 09:48 Urine Blood Negative (NEGATIVE) 09/29/17 09:48 Urine Nitrate Negative (NEGATIVE) 09/29/17 09:48 Urine Bilirubin Negative (NEGATIVE) 09/29/17 09:48 Urine Urobilinogen Normal mg/dL (0.2-1.0) 09/29/17 09:48 Ur Leukocyte Esterase Neg Rudolph/uL (Negative) 09/29/17 09:48 Ur Squamous Epith Cells < 1 /hpf (0-5) 09/29/17 09:48 Attending/Attestation - Attestation I have personally seen and examined this patient.: Yes I have fully participated in the care of the patient.: Yes I have reviewed all pertinent clinical information, including history, physical exam and plan: Yes
[2017-09-30 11:07] VITALS: BP 117/66; RESP 18; TEMP 97.7; O2SAT 98
--- NOTE | 2017-09-30 12:08 | CARD ---
APPROVED REPORT EKG Measurement Heart [id number] <Conclusion> Sinus rhythm with premature atrial complexes Moderate voltage criteria for LVH, may be normal variant Borderline ECG
--- NOTE | 2017-09-30 12:54 | CARD ---
APPROVED REPORT EKG Measurement Heart [id number] <Conclusion> Normal sinus rhythm Minimal voltage criteria for LVH, may be normal variant Borderline ECG
--- NOTE | 2017-10-01 20:16 | CARD ---
APPROVED REPORT EKG Measurement Heart [id number] <Conclusion> Normal sinus rhythm Minimal voltage criteria for LVH, may be normal variant Borderline ECG
[2017-10-02] MEDS ORDERED: Influenza Vaccine 60 mcg/0.5 mL SYR (4YR UP) IM ONE (10:00)
[2017-10-02] MEDS ORDERED: Pneumococcal 23-Valent Vaccine IM ONE (10:00)
== END 2017-09-30 13:19 | disposition home or self-care (01) | DRG 316 ==
LOC: C.ER 23:15 → C.9E 09-29 01:27 → C.6T 09-29 19:40
PROVIDERS: ADMIT Family Medicine; ATTEND Family Medicine
DX: I12.9 Hypertensive chronic kidney disease with stage 1 through stage 4 chronic kidney disease, or unspecified chronic kidney disease (principal); E11.22 Type 2 diabetes mellitus with diabetic chronic kidney disease; J44.9 Chronic obstructive pulmonary disease, unspecified; N18.9 Chronic kidney disease, unspecified; E78.5 Hyperlipidemia, unspecified; F17.200 Nicotine dependence, unspecified, uncomplicated; Z86.73 Personal history of transient ischemic attack (TIA), and cerebral infarction without residual deficits; Z68.38 Body mass index [BMI] 38.0-38.9, adult

== ENCOUNTER 2017-10-22 12:53 | Observation (INO) | payer OTHER ==
[2017-10-22 12:53] VITALS: BMI 35.5
--- NOTE | 2017-10-22 13:32 | C.PDOC ---
History Of Present Illness 62 year old male, with PMHx of HTN, diabetes, presents to ED for evaluation of shortness of breath, cough, and mild chest tightness for the last few days. Pt also complaints of lightheadedness, and neck pain. Denies fever, or other complaints. Time Seen by Provider: 10/22/17 13:09 Chief Complaint (Nursing): Dizziness/Lightheaded History Per: Patient History/Exam Limitations: no limitations Onset/Duration Of Symptoms: Days Current Symptoms Are (Timing): Still Present Additional History Per: Patient Past Medical History Reviewed: Historical Data, Nursing Documentation, Vital Signs Vital Signs: Last Vital Signs Temp 97.9 F 10/22/17 17:23 Pulse 72 10/22/17 17:23 Resp 16 10/22/17 17:23 BP 109/67 10/22/17 17:23 Pulse Ox 94 L 10/22/17 17:23 - Medical History PMH: Anxiety, Arthritis (neck), Asthma, Back Problems, COPD, CVA, Diabetes ( borderline), HTN, Hypercholesterolemia, Hyperlipidemia, Kidney Stones, Pneumonia , TIA (2002 & 2014), Chronic Pain Denies: Chronic Kidney Disease Surgical History: Tonsillectomy (11 y/o) Family History: States: KS (Multiple uncles had KS's in their 40's and 50's but not 1st degree family), Diabetes, Hypertension - Social History Hx Tobacco Use: Yes (occasionally) Hx Alcohol Use: No (>20 yrs ago) Hx Substance Use: No - Immunization History Hx Tetanus Toxoid Vaccination: No Hx Influenza Vaccination: No Hx Pneumococcal Vaccination: No Review Of Systems Except As Marked, All Systems Reviewed And Found Negative. Constitutional: Negative for: Fever, Chills Cardiovascular: Positive for: Chest Pain (tightness), Light Headedness. Negative for: Palpitations Respiratory: Positive for: Cough, Shortness of Breath Gastrointestinal: Negative for: Nausea, Vomiting Musculoskeletal: Positive for: Neck Pain. Negative for: Back Pain Neurological: Negative for: Headache, Dizziness Physical Exam - Physical Exam Appears: Non-toxic, No Acute Distress, Other (morbidly obese) Skin: Normal Color, Warm, Dry Head: Atraumatic, Normacephalic Eye(s): bilateral: Normal Inspection Oral Mucosa: Moist Neck: Normal ROM, No Midline Cervical Tenderness, No Paracervical Tenderness, Supple Cardiovascular: Rhythm Regular, No Murmur Respiratory: Normal Breath Sounds, No Rales, No Rhonchi, No Wheezing Gastrointestinal/Abdominal: Soft, No Tenderness Extremity: Normal ROM, No Deformity Neurological/Psych: Oriented x3, Normal Speech ED Course And Treatment - Laboratory Results Result Diagrams: 10/22/17 13:36 10/22/17 13:36 ECG: Interpreted By Me, Viewed By Me ECG Rhythm: Sinus Rhythm ECG Interpretation: No Acute Changes Interpretation Of ECG: No acute ST/T wave changes. Rate From EC (bpm) O2 Sat by Pulse Oximetry: 96 (RA) Pulse Ox Interpretation: Normal Medical Decision Making Medical Decision Making: cp ro acs- labs imagign asas Blood work, EKG, CXR ordered and reviewed. ct neg. pt with recent admission due for outpt stress. multiple risk factors will obs Disposition - Disposition Disposition: HOSPITALIZED Disposition Time: 18:38 Condition: STABLE - Clinical Impression Clinical Impression: Chest pain - Scribe Statement The provider has reviewed the documentation as recorded by the Scribe Tabatha Haque All medical record entries made by the Scribe were at my direction and personally dictated by me. I have reviewed the chart and agree that the record accurately reflects my personal performance of the history, physical exam, medical decision making, and the department course for this patient. I have also personally directed, reviewed, and agree with the discharge instructions and disposition. Decision To Admit - Pt Status Changed To: Hospital Disposition Of: Observation - . Bed Request Type: Telemetry Admitting Physician: Carlos Miranda Patient Diagnosis: Chest pain
[2017-10-22 13:44] LABS: BASO % 0.6 % (0.0-2.0); EOS # 0.1 K/uL (0.0-0.7); EOS % 2.3 % (0.0-4.0); HEMOGLOBIN 14.4 g/dL (12.0-18.0); LYMPH # 1.8 K/uL (1.0-4.3); LYMPH % 31.7 % (20.0-40.0); MEAN CELL VOLUME 84.2 fL (80.0-94.0); MEAN CORPUSCULAR HEMOGLOBIN 29.1 pg (27.0-31.0); MEAN CORPUSCULAR HGB CONC 34.6 g/dL (33.0-37.0); MEAN PLATELET VOLUME 7.4 fL (7.2-11.7); MONO # 0.8 K/uL (0.0-0.8); MONO % 13.7 % (0.0-10.0); NEUT % 51.7 % (50.0-75.0); RBC 4.95 Mil/uL (4.40-5.90); WHITE BLOOD COUNT 5.8 K/uL (4.8-10.8)
[2017-10-22 13:54] LABS: ALB/GLOB RATIO 1.2 (1.0-2.1); ALBUMIN 4.1 g/dL (3.5-5.0); ALT/SGPT 55 U/L (21-72); AST/SGOT 39 U/L (17-59); BLOOD UREA NITROGEN 14 mg/dL (9-20); CALCIUM 9.3 mg/dl (8.6-10.4); GFR AFRICAN-AMERICAN > 60; GFR NON-AFRICAN AMERICAN > 60
[2017-10-22 14:06] LABS: B-TYPE NATRIURETIC PEPTIDE 18.7 pg/mL (0-900)
[2017-10-22 14:44] LABS: PROTHROMBIN TIME 10.8 SECONDS (9.7-12.2)
[2017-10-22] MEDS ORDERED: Iodixanol 320 MG/ML 100 ML BOTTLE IV ONE (16:03)
--- NOTE | 2017-10-22 17:37 | CT ---
PROCEDURE: CT Chest with contrast (Pulmonary Angiogram) HISTORY: sob elevated dimer COMPARISON: 05/05/2017 TECHNIQUE: Axial computed tomography images were obtained of the chest in the pulmonary arterial phase of enhancement. Coronal and sagittal reformatted images were created and reviewed. Intravenous contrast dose: 100 mL Visipaque 320 Radiation dose: Total exam DLP = 506.32 mGy-cm. This CT exam was performed using one or more of the following dose reduction techniques: Automated exposure control, adjustment of the mA and/or kV according to patient size, and/or use of iterative reconstruction technique. FINDINGS: PULMONARY ARTERIES: Unremarkable. No pulmonary embolism. AORTA: No acute findings. No thoracic aortic aneurysm. LUNGS: No pulmonary infiltrate. There is 9 mm nodule along the minor fissure and a 10 mm nodule along the major fissure, each of which most likely represent intrapulmonary lymph nodes. These are unchanged from prior examination of 05/05/2017. An additional six-month follow-up noncontrast chest CT examination is advised to assure stability. No other pulmonary mass is identified. PLEURAL SPACES: Unremarkable. No effusion or pneuomothorax. HEART: Unremarkable. No cardiomegaly. No significant pericardial effusion. LYMPH NODES: Shotty subcentimeter mediastinal and bilateral hilar nodes are evident. There is no significant mediastinal or hilar lymphadenopathy. BONES, CHEST WALL: Unremarkable. No fracture or destructive lesion OTHER FINDINGS: Extensive fatty infiltration of the liver is noted. This is unchanged from prior examination. IMPRESSION: No evidence pulmonary embolism. Incidental pulmonary nodules as described unchanged from 05/05/2017 and most likely representing intrapulmonary lymph nodes. Recommend additional six-month follow-up noncontrast chest CT examination to assure stability. Fatty liver. No additional abnormality.
--- NOTE | 2017-10-22 17:49 | RAD ---
HISTORY: chest pain COMPARISON: 09/29/2017 TECHNIQUE: Chest PA and lateral FINDINGS: LUNGS: No active pulmonary disease. PLEURA: No significant pleural effusion identified. No pneumothorax apparent. CARDIOVASCULAR: Normal. OSSEOUS STRUCTURES: No significant abnormalities. VISUALIZED UPPER ABDOMEN: Normal. OTHER FINDINGS: None. IMPRESSION: No active disease.
--- NOTE | 2017-10-22 18:42 | CP.PCM.HP ---
History of Present Illness - History of Present Illness History of Present Illness: CC: chest pain 62 year old male with past medical history of asthma, diabetes, hyperlipidemia, and multiple TIA, presents to the ED complaints of pressure like chest pain and shortness of breath. Patient reports his symptoms started last night while he was resting at home. The pressure like chest pain is located in the mid sternum region, intermittent, non radiating, and non reproducible. He states that this chest pain is similar to the one he had in the past. Symptoms associated with this chest pain include shortness of breath and dizziness. Past cardiac workups include stress test and echocardiogram, they were both unremarkable. Patient denies fever, chills, headache, blurred vision, nausea, vomiting or diarrhea. PMD: [facility] at [facility] PMHx: Asthma, COPD, Hyperlipidemia, DM, multiple TIA without residual weakness PSHx: right middle finger surgery for trauma, bilateral foot surgery Social Hx: Former smoker (150py), former alcohol drinker, denies drug use Family Hx: multiple relatives with CVA, Mother with DM and of lung cancer Allergies: None, NKDA Medications: metformin, lisinopril, aspirin, lipitor Present on Admission - Present on Admission Any Indicators Present on Admission: No Review of Systems - Constitutional Constitutional: As Per HPI. absent: Fever, Headache Past Patient History - Infectious Disease Hx of Infectious Diseases: None - Past Medical History & Family History Past Medical History?: Yes - Past Social History Smoking Status: Former Smoker - CARDIAC Hx Hypercholesterolemia: Yes Hx Hypertension: Yes - PULMONARY Hx Asthma: Yes Hx Chronic Obstructive Pulmonary Disease (COPD): Yes Hx Pneumonia: Yes - NEUROLOGICAL Hx Transient Ischemic Attacks (TIA): Yes (2002 & 2014) - HEENT Hx HEENT Problems: No - RENAL Hx Chronic Kidney Disease: No Hx Kidney Stones: Yes - ENDOCRINE/METABOLIC Hx Endocrine Disorders: No - HEMATOLOGICAL/ONCOLOGICAL Hx Blood Disorders: No - INTEGUMENTARY Hx Dermatological Problems: No - MUSCULOSKELETAL/RHEUMATOLOGICAL Hx Arthritis: Yes (neck) - GASTROINTESTINAL Hx Gastrointestinal Disorders: No - GENITOURINARY/GYNECOLOGICAL Hx Genitourinary Disorders: No - PSYCHIATRIC Hx Anxiety: Yes Hx Substance Use: No - SURGICAL HISTORY Hx Tonsillectomy: Yes (11 y/o) - ANESTHESIA Hx Anesthesia: Yes Hx Anesthesia Reactions: No Meds Allergies/Adverse Reactions: Allergies Allergy/AdvReac Type Severity Reaction Status Date / Time No Known Allergies Allergy Verified 09/21/17 14:50 Physical Exam - Constitutional Appears: No Acute Distress - Head Exam Head Exam: ATRAUMATIC, NORMAL INSPECTION - Eye Exam Eye Exam: EOMI, Normal appearance - ENT Exam ENT Exam: Mucous Membranes Moist - Neck Exam Neck exam: Positive for: Normal Inspection - Respiratory Exam Respiratory Exam: Clear to Auscultation Bilateral, NORMAL BREATHING PATTERN. absent: Respiratory Distress - Cardiovascular Exam Cardiovascular Exam: REGULAR RHYTHM, +S1, +S2 - GI/Abdominal Exam GI & Abdominal Exam: Normal Bowel Sounds, Soft. absent: Tenderness - Extremities Exam Extremities exam: Positive for: pedal pulses present. Negative for: normal inspection, tenderness Additional comments: Bilateral lower extremity swelling - Neurological Exam Neurological exam: Alert, Oriented x3 - Psychiatric Exam Psychiatric exam: Normal Affect, Normal Mood - Skin Skin Exam: Dry, Warm Results - Vital Signs Recent Vital Signs: Last Vital Signs Temp 97.9 F 10/22/17 17:23 Pulse 72 10/22/17 17:23 Resp 16 10/22/17 17:23 BP 109/67 10/22/17 17:23 Pulse Ox 94 L 10/22/17 17:23 - Labs Result Diagrams: 10/22/17 13:36 10/22/17 13:36 Labs: Laboratory Results - last 24 hr 10/22/17 10/22/17 10/22/17 13:13 13:36 13:36 WBC 5.8 RBC 4.95 Hgb 14.4 Hct 41.7 MCV 84.2 MCH 29.1 MCHC 34.6 RDW 14.0 Plt Count 264 MPV 7.4 Neut % (Auto) 51.7 Lymph % (Auto) 31.7 [place] % (Auto) 13.7 H Eos % (Auto) 2.3 Baso % (Auto) 0.6 Neut # (Auto) 3.0 Lymph # (Auto) 1.8 [place] # (Auto) 0.8 Eos # (Auto) 0.1 Baso # (Auto) 0.0 PT 10.8 INR 1.0 APTT 30 D-Dimer, Quantitative 316 H Sodium Potassium Chloride Carbon Dioxide Anion Gap BUN Creatinine Est GFR ( Amer) Est GFR (Non-Af Amer) POC Glucose (mg/dL) 133 H Random Glucose Calcium Total Bilirubin AST ALT Alkaline Phosphatase Troponin I NT-Pro-B Natriuret Pep Total Protein Albumin Globulin Albumin/Globulin Ratio 10/22/17 13:36 WBC RBC Hgb Hct MCV MCH MCHC RDW Plt Count MPV Neut % (Auto) Lymph % (Auto) [place] % (Auto) Eos % (Auto) Baso % (Auto) Neut # (Auto) Lymph # (Auto) [place] # (Auto) Eos # (Auto) Baso # (Auto) PT INR APTT D-Dimer, Quantitative Sodium 137 Potassium 4.3 Chloride 102 Carbon Dioxide 25 Anion Gap 14 BUN 14 Creatinine 0.8 Est GFR ( Amer) > 60 Est GFR (Non-Af Amer) > 60 POC Glucose (mg/dL) Random Glucose 130 H Calcium 9.3 Total Bilirubin 0.4 AST 39 ALT 55 Alkaline Phosphatase 59 Troponin I < 0.0120 NT-Pro-B Natriuret Pep 18.7 Total Protein 7.5 Albumin 4.1 Globulin 3.4 Albumin/Globulin Ratio 1.2 Assessment & Plan - Assessment and Plan (Free Text) Assessment: Chest pain r/o ACS -Tele obs -RUTH negative x1, repeats pending -EKG no acute ST changes, repeat in AM -CT chest no evidence of PE -Echo from 09/2017 was normal -Cardiology consult, Dr. Haque help appreciated -Continue aspirin, statin, primo inhibitor Hx of diabetes -A1c 6.9 in 09/2017 -non compliant with glucose checks and metformin -Continue metformin -FS Glucose ACHS -Continue ASA, primo inhibitor COPD -Hx of asthma -Duoneb IHN Q4hr -CXR no active disease -2L oxygen nc prn Pulmonary nodules -Incidental finding on chest CT -Former smoker -Family hx of lung cancer -Repeat CT in 6 months is recommended Prophylactic measures -Protonix -Lovenox
[2017-10-22] MEDS: (Novolin R) Insulin Human Regular 100 units/ml vial SC SCH (21:41)
[2017-10-23 00:08] VITALS: RESP 20
[2017-10-23 01:30] LABS: CK-MB 0.59 ng/mL (0.0-3.38)
[2017-10-23] MEDS: (Novolin R) Insulin Human Regular 100 units/ml vial SC SCH ×2 (07:14→16:46)
[2017-10-23] MEDS: Albuterol-Ipratrop 3 mg / 0.5 (3 ml) UD INH PRN ×2 (07:58→11:58)
[2017-10-23 09:06] LABS: BASO % 0.5 % (0.0-2.0); EOS # 0.1 K/uL (0.0-0.7); EOS % 1.7 % (0.0-4.0); HEMOGLOBIN 14.7 g/dL (12.0-18.0); LYMPH # 1.8 K/uL (1.0-4.3); LYMPH % 29.7 % (20.0-40.0); MEAN CORPUSCULAR HEMOGLOBIN 29.9 pg (27.0-31.0); MEAN CORPUSCULAR HGB CONC 35.2 g/dL (33.0-37.0); MEAN PLATELET VOLUME 7.5 fL (7.2-11.7); MONO # 0.7 K/uL (0.0-0.8); NEUT # 3.5 K/uL (1.8-7.0); NEUT % 57.1 % (50.0-75.0); NRBC % 0.1 % (0.0-2.0); RBC 4.93 Mil/uL (4.40-5.90); RED CELL DISTRIBUTION WIDTH 13.7 % (11.5-14.5); WHITE BLOOD COUNT 6.1 K/uL (4.8-10.8)
[2017-10-23 09:40] LABS: ALB/GLOB RATIO 1.1 (1.0-2.1); ALBUMIN 3.9 g/dL (3.5-5.0); ALT/SGPT 65 U/L (21-72); AST/SGOT 49 U/L (17-59); BLOOD UREA NITROGEN 15 mg/dL (9-20); CALCIUM 9.1 mg/dl (8.6-10.4); GFR AFRICAN-AMERICAN > 60; GFR NON-AFRICAN AMERICAN > 60
[2017-10-23] MEDS ORDERED: Enoxaparin 40 mg Syringe SC SCH (10:00)
[2017-10-23] MEDS ORDERED: Pantoprazole 40 mg EC Tab PO SCH (10:00)
--- NOTE | 2017-10-23 14:32 | CP.PCM.DIS ---
Provider - Provider Date of Admission: 10/22/17 17:40 Attending physician: Carlos Miranda MD Primary care physician: [facility] Consults: Dr. Kalen Haque Time Spent in preparation of Discharge (in minutes): 40 Diagnosis - Discharge Diagnosis (1) Chest pain Status: Resolved (2) Diabetes mellitus Status: Chronic (3) Hyperlipidemia Status: Chronic (4) Pulmonary nodule seen on imaging study Status: Chronic Comment: Patient will need to have a repeat CT chest in 6 months (5) Asthma Status: Chronic Hospital Course - Lab Results Lab Results: Most Recent Lab Values WBC 6.1 K/uL (4.8-10.8) 10/23/17 09:00 RBC 4.93 Mil/uL (4.40-5.90) 10/23/17 09:00 Hgb 14.7 g/dL (12.0-18.0) 10/23/17 09:00 Hct 41.9 % (35.0-51.0) 10/23/17 09:00 MCV 85.0 fL (80.0-94.0) 10/23/17 09:00 MCH 29.9 pg (27.0-31.0) 10/23/17 09:00 MCHC 35.2 g/dL (33.0-37.0) 10/23/17 09:00 RDW 13.7 % (11.5-14.5) 10/23/17 09:00 Plt Count 267 K/uL (130-400) 10/23/17 09:00 MPV 7.5 fL (7.2-11.7) 10/23/17 09:00 Neut % (Auto) 57.1 % (50.0-75.0) 10/23/17 09:00 Lymph % (Auto) 29.7 % (20.0-40.0) 10/23/17 09:00 [place] % (Auto) 11.0 % (0.0-10.0) H 10/23/17 09:00 Eos % (Auto) 1.7 % (0.0-4.0) 10/23/17 09:00 Baso % (Auto) 0.5 % (0.0-2.0) 10/23/17 09:00 Neut # (Auto) 3.5 K/uL (1.8-7.0) 10/23/17 09:00 Lymph # (Auto) 1.8 K/uL (1.0-4.3) 10/23/17 09:00 [place] # (Auto) 0.7 K/uL (0.0-0.8) 10/23/17 09:00 Eos # (Auto) 0.1 K/uL (0.0-0.7) 10/23/17 09:00 Baso # (Auto) 0.0 K/uL (0.0-0.2) 10/23/17 09:00 PT 10.8 SECONDS (9.7-12.2) 10/22/17 13:36 INR 1.0 10/22/17 13:36 APTT 30 SECONDS (21-34) 10/22/17 13:36 D-Dimer, Quantitative 316 ng/mlDDU (0-243) H 10/22/17 13:36 Sodium 138 mmol/L (132-148) 10/23/17 09:00 Potassium 4.6 mmol/L (3.6-5.2) 10/23/17 09:00 Chloride 99 mmol/L (98-107) 10/23/17 09:00 Carbon Dioxide 28 mmol/L (22-30) 10/23/17 09:00 Anion Gap 15 (10-20) 10/23/17 09:00 BUN 15 mg/dL (9-20) 10/23/17 09:00 Creatinine 0.9 mg/dL (0.8-1.5) 10/23/17 09:00 Est GFR ( Amer) > 60 10/23/17 09:00 Est GFR (Non-Af Amer) > 60 10/23/17 09:00 POC Glucose (mg/dL) 116 mg/dL (65-110) H 10/23/17 12:03 Random Glucose 179 mg/dL (75-110) H 10/23/17 09:00 Calcium 9.1 mg/dl (8.6-10.4) 10/23/17 09:00 Total Bilirubin 0.5 mg/dL (0.2-1.3) 10/23/17 09:00 AST 49 U/L (17-59) 10/23/17 09:00 ALT 65 U/L (21-72) 10/23/17 09:00 Alkaline Phosphatase 62 U/L (38-126) 10/23/17 09:00 Total Creatine Kinase 61 U/L (55-170) 10/23/17 01:01 CK-MB (Mass) 0.59 ng/mL (0.0-3.38) 10/23/17 01:01 Troponin I < 0.0120 ng/mL (0.00-0.120) 10/23/17 07:00 NT-Pro-B Natriuret Pep 18.7 pg/mL (0-900) 10/22/17 13:36 Total Protein 7.3 g/dL (6.3-8.3) 10/23/17 09:00 Albumin 3.9 g/dL (3.5-5.0) 10/23/17 09:00 Globulin 3.4 gm/dL (2.2-3.9) 10/23/17 09:00 Albumin/Globulin Ratio 1.1 (1.0-2.1) 10/23/17 09:00 - Hospital Course Hospital Course: 62 year old male with past medical history of asthma, diabetes, hyperlipidemia, and multiple TIA, presents to the ED complaints of pressure like chest pain and shortness of breath. Patient reports his symptoms started last night while he was resting at home. The pressure like chest pain is located in the mid sternum region, intermittent, non radiating, and non reproducible. He states that this chest pain is similar to the one he had in the past. Symptoms associated with this chest pain include shortness of breath and dizziness. Past cardiac workups include stress test and echocardiogram, they were both unremarkable. Patient is a former heavy smoker with multiple family members with CVA. Patient denies fever, chills, headache, blurred vision, nausea, vomiting or diarrhea. In the ED patient was found to have an elevated d-dimer and CTA chest found to have no evidence of pulmonary embolism. Patient was placed on tele observation. Over night patient's chest pain resolved. EKG showed no acute ST changes. Patient's troponins were negative 3 times. Case discussed with attending Dr. Miranda and counter clerk Dr. Haque, who agreed with discharge plans. Patient should make an appointment and follow up with PMD within one week for post hospital care and medication adjustments. Patient should return to ED immediately if symptoms return or worsen. Instructions discussed with patient who understood and agreed. Above is a brief summary of the patient's hospital course throughout this admission. Please see medical record for full report. - Date & Time of H&P Date of H&P: 10/22/17 Time of H&P: 18:29 Discharge Exam - Head Exam Head Exam: ATRAUMATIC, NORMAL INSPECTION - Eye Exam Eye Exam: EOMI, Normal appearance Pupil Exam: NORMAL ACCOMODATION - ENT Exam ENT Exam: Mucous Membranes Moist - Neck Exam Neck exam: Full Rom - Respiratory Exam Respiratory Exam: Clear to PA & Lateral, UNREMARKABLE. absent: Wheezes, Respiratory Distress - Cardiovascular Exam Cardiovascular Exam: REGULAR RHYTHM, +S1, +S2 - GI/Abdominal Exam GI & Abdominal Exam: Normal Bowel Sounds, Soft. absent: Tenderness - Extremities Exam Extremities exam: normal inspection, pedal pulses present - Neurological Exam Neurological exam: Alert, Oriented x3 - Psychiatric Exam Psychiatric exam: Normal Affect, Normal Mood - Skin Skin Exam: Dry, Normal Color, Warm Discharge Plan - Discharge Medications Prescriptions: Albuterol 0.5% [Albuterol 0.5% Inhal Julia (2.5 mg/0.5 ml) UD] 2.5 mg IH TID PRN # 1 neb PRN Reason: Shortness Of Breath - Follow Up Plan Condition: STABLE Disposition: HOME/ ROUTINE Patient education suggested?: Yes Instructions: Chest Pain (DC) Additional Instructions: Patient is to follow up with PMD at [facility] for medication adjustments Patient will take medications as prescribed Patient will have a repeat CT scan of the chest in 6 months for pulmonary nodules follow up. Go to the nearest ED if symptoms worsen or return Referrals: [facility] [Outside]
[2017-10-23 16:31] VITALS: BP 115/72; TEMP 98.5; O2SAT 95
[2017-10-23 18:16] VITALS: PULSE 78
[2017-10-24] MEDS ORDERED: Influenza Vaccine 60 mcg/0.5 mL SYR (4YR UP) IM ONE (10:00)
[2017-10-24] MEDS ORDERED: Pneumococcal 23-Valent Vaccine IM ONE (10:00)
== END 2017-10-23 19:40 | disposition home or self-care (01) ==
LOC: C.ER 12:53 → C.9E 17:40 → C.5S 21:17
PROVIDERS: ADMIT Internal Medicine; ATTEND Internal Medicine
DX: R07.89 Other chest pain (principal); I10 Essential (primary) hypertension; E78.5 Hyperlipidemia, unspecified; J44.9 Chronic obstructive pulmonary disease, unspecified; Z87.891 Personal history of nicotine dependence; Z91.19 Patient's noncompliance with other medical treatment and regimen; E11.9 Type 2 diabetes mellitus without complications; Z68.38 Body mass index [BMI] 38.0-38.9, adult
CPT/HCPCS: 36415; 71046; 71275; 80053; 82948; 83880; 84484; 85025; 85378; 85610; 85730; 94640; 99285; G0378; J1650; Q9967

== ENCOUNTER 2017-10-25 09:44 | Emergency (ER) | payer OTHER, SELFPAY ==
[2017-10-25 09:44] VITALS: BMI 35.5
[2017-10-25 09:58] VITALS: RESP 18; O2SAT 95
[2017-10-25 11:27] LABS: BASO % 0.6 % (0.0-2.0); EOS % 0.4 % (0.0-4.0); HEMOGLOBIN 14.8 g/dL (12.0-18.0); LYMPH % 16.1 % (20.0-40.0); MEAN CELL VOLUME 84.2 fL (80.0-94.0); MEAN CORPUSCULAR HEMOGLOBIN 28.9 pg (27.0-31.0); MEAN CORPUSCULAR HGB CONC 34.3 g/dL (33.0-37.0); MEAN PLATELET VOLUME 7.2 fL (7.2-11.7); MONO # 0.6 K/uL (0.0-0.8); MONO % 9.4 % (0.0-10.0); NEUT # 4.4 K/uL (1.8-7.0); NEUT % 73.5 % (50.0-75.0); NRBC % 0.2 % (0.0-2.0); RBC 5.13 Mil/uL (4.40-5.90); RED CELL DISTRIBUTION WIDTH 13.8 % (11.5-14.5); WHITE BLOOD COUNT 5.9 K/uL (4.8-10.8)
--- NOTE | 2017-10-25 11:27 | C.PDOC ---
History Of Present Illness 62yo male with history of HTN, diabetes, hyperlipidemia, and family history of CVA , presents to ED with complaints of headche, bilateral arm pain and neck pain for the past 2 days. Patient states he has not been taking his metformin due to a CT Chest with contrast that was done 2 days ago. Patient states he was instructed to follow up for labs and had an appointment at the clinic today for 1pm however, he was feeling dizzy as well, prompting his ER visit. He also reports a dry nonproductive cough but denies any fever, chills, chest pain, shortness of breath. He did not receive the flu shot this season. patient offers no other medical complaints. Time Seen by Provider: 10/25/17 10:09 Chief Complaint (Nursing): Headache History Per: Patient History/Exam Limitations: no limitations Current Symptoms Are (Timing): Still Present Additional History Per: Patient Past Medical History Reviewed: Historical Data, Nursing Documentation, Vital Signs Vital Signs: Last Vital Signs Temp 98.3 F 10/25/17 12:06 Pulse 79 10/25/17 12:06 Resp 18 10/25/17 12:06 BP 124/73 10/25/17 12:06 Pulse Ox 95 10/25/17 12:06 - Medical History PMH: Anxiety, Arthritis (neck), Asthma, Back Problems, COPD, CVA, Diabetes ( borderline), HTN, Hypercholesterolemia, Hyperlipidemia, Kidney Stones, Pneumonia , TIA (2002 & 2014), Chronic Pain Denies: Chronic Kidney Disease, Seizures Surgical History: Tonsillectomy (11 y/o) Family History: States: [place] (Multiple uncles had [place]'s in their 40's and 50's but not 1st degree family), Diabetes, Hypertension - Social History Hx Tobacco Use: Yes (occasionally) Hx Alcohol Use: No (>20 yrs ago) Hx Substance Use: No - Immunization History Hx Tetanus Toxoid Vaccination: No Hx Influenza Vaccination: No Hx Pneumococcal Vaccination: No Review Of Systems Except As Marked, All Systems Reviewed And Found Negative. Constitutional: Negative for: Fever, Chills Cardiovascular: Negative for: Chest Pain Respiratory: Positive for: Cough. Negative for: Shortness of Breath Gastrointestinal: Negative for: Vomiting Musculoskeletal: Positive for: Neck Pain, Arm Pain Neurological: Positive for: Headache, Dizziness Physical Exam - Physical Exam Appears: Non-toxic, No Acute Distress Skin: Normal Color Head: Normacephalic Eye(s): bilateral: Normal Inspection Neck: Normal ROM, Supple Chest: Symmetrical Cardiovascular: Rhythm Regular Respiratory: Normal Breath Sounds, No Wheezing Extremity: Normal ROM, No Deformity Neurological/Psych: Oriented x3, Normal Speech, Normal Cognition ED Course And Treatment - Laboratory Results Result Diagrams: 10/25/17 11:17 10/25/17 11:17 ECG: Interpreted By Me, Viewed By Me ECG Rhythm: Sinus Rhythm, ST/T Changes (none) Rate From EC O2 Sat by Pulse Oximetry: 95 (RA) Pulse Ox Interpretation: Normal Medical Decision Making Medical Decision Making: Impression: Influenza like illness Plan: -- Prior records reviewed and patient was admitted on 10/22 for chest pain, had a CTA Chest performed with no acute findings. Patient was admitted under observation for his chest pain and his 3 serial troponins were all negative. Patient will receive cardiac workup today due to his prior presentation. -- Tylenol 975 mg PO -- Motrin 600 mg PO -- Tamiflu 75 mg PO Time: 1200 Labs reviewed and within normal limits. Patient to be treated for influenza, given Motrin and Tamiflu prescriptions. Patient instructed to follow up with clinic as per his original appointment. Disposition Counseled Patient/Family Regarding: Diagnosis, Need For Followup, Rx Given - Disposition Referrals: [facility] [Outside] Disposition: HOME/ ROUTINE Disposition Time: 11:58 Condition: STABLE Prescriptions: Ibuprofen [Motrin] 600 mg PO TID #15 tab Oseltamivir [Tamiflu] 1 cap PO BID #10 cap Instructions: Flu, Adult (DC) Forms: [facility] (Sudanese), General Discharge Instructions - POA Present On Arrival: None - Clinical Impression Clinical Impression: Influenza - Scribe Statement The provider has reviewed the documentation as recorded by the Scribe (Carmen Luevano) Provider Attestation: All medical record entries made by the Scribe were at my direction and personally dictated by me. I have reviewed the chart and agree that the record accurately reflects my personal performance of the history, physical exam, medical decision making, and the department course for this patient. I have also personally directed, reviewed, and agree with the discharge instructions and disposition.
--- NOTE | 2017-10-25 11:43 | RAD ---
HISTORY: chest pain COMPARISON: 10/22/2017 TECHNIQUE: Chest PA and lateral FINDINGS: LUNGS: No pulmonary infiltrate. PLEURA: No significant pleural effusion identified. No pneumothorax apparent. CARDIOVASCULAR: Normal. OSSEOUS STRUCTURES: No significant abnormalities. VISUALIZED UPPER ABDOMEN: Normal. OTHER FINDINGS: None. IMPRESSION: No active disease.
[2017-10-25 11:50] LABS: ALB/GLOB RATIO 1.1 (1.0-2.1); ALBUMIN 4.2 g/dL (3.5-5.0); ALT/SGPT 63 U/L (21-72); AST/SGOT 61 U/L (17-59); BLOOD UREA NITROGEN 23 mg/dL (9-20); CALCIUM 9.2 mg/dl (8.6-10.4); GFR AFRICAN-AMERICAN > 60; GFR NON-AFRICAN AMERICAN > 60
[2017-10-25 12:08] VITALS: BP 124/73; PULSE 79; TEMP 98.3
--- NOTE | 2017-10-26 23:37 | CARD ---
APPROVED REPORT EKG Measurement Heart [id number] <Conclusion> Normal sinus rhythm Minimal voltage criteria for LVH, may be normal variant Borderline ECG
--- NOTE | 2017-10-28 22:57 | CARD ---
APPROVED REPORT EKG Measurement Heart [id number] ID [id number] <Conclusion> Normal sinus rhythm Minimal voltage criteria for LVH, may be normal variant Borderline ECG
== END 2017-10-25 12:07 | disposition home or self-care (01) ==
LOC: C.ER 09:44
DX: J11.1 Influenza due to unidentified influenza virus with other respiratory manifestations (principal); E11.9 Type 2 diabetes mellitus without complications; I10 Essential (primary) hypertension; E78.00 Pure hypercholesterolemia, unspecified; Z87.891 Personal history of nicotine dependence

== ENCOUNTER 2017-12-29 18:43 | Emergency (ER) | payer SELFPAY ==
[2017-12-29 18:43] VITALS: BMI 40.1
[2017-12-29 18:50] VITALS: BP 136/84; PULSE 85; RESP 20; TEMP 98.1; O2SAT 96
--- NOTE | 2017-12-29 19:42 | C.PDOC ---
History Of Present Illness 62 year old male presents to the emergency department with a complaint of a left hand pain with mild swelling over the thumb for the past week. Admits to using the hand a lot at work. Denies known direct trauma or injury, deformity, weakness, sensory or vascular deficits to Left hand. Ambulate to Ed, not in nay apparent distress. Time Seen by Provider: 12/29/17 18:51 Chief Complaint (Nursing): Upper Extremity Problem/Injury History Per: Patient History/Exam Limitations: no limitations Onset/Duration Of Symptoms: Days Current Symptoms Are (Timing): Still Present Past Medical History Reviewed: Historical Data, Nursing Documentation, Vital Signs Vital Signs: Last Vital Signs Temp 98.1 F 12/29/17 18:49 Pulse 85 12/29/17 18:49 Resp 20 12/29/17 18:49 BP 136/84 12/29/17 18:49 Pulse Ox 96 12/29/17 20:08 - Medical History PMH: Anxiety, Arthritis (neck), Asthma, Back Problems, COPD, CVA, Diabetes ( borderline), HTN, Hypercholesterolemia, Hyperlipidemia, Kidney Stones, Pneumonia , TIA (2002 & 2014), Chronic Pain Denies: Chronic Kidney Disease, Seizures Surgical History: Tonsillectomy (11 y/o) Family History: States: [place] (Multiple uncles had [place]'s in their 40's and 50's but not 1st degree family), Diabetes, Hypertension - Social History Hx Tobacco Use: Yes (occasionally) Hx Alcohol Use: No (>20 yrs ago) Hx Substance Use: No - Immunization History Hx Tetanus Toxoid Vaccination: No Hx Influenza Vaccination: No Hx Pneumococcal Vaccination: No Review Of Systems Except As Marked, All Systems Reviewed And Found Negative. (As per HPI, otherwise negative) Constitutional: Negative for: Other (trauma, strain, weakness, or obvious deformity) Musculoskeletal: Positive for: Hand Pain (left hand pain with mild swelling) Physical Exam - Physical Exam Appears: Well, Non-toxic, No Acute Distress Skin: Normal Color, Warm, Dry, No Rash, No Ecchymosis Extremity: Normal ROM (Left hand w/o difficulty, no neurovascular deficits.), Tenderness (Tenderness over dorsal aspect of the left hand over 1st MCPJ with mild edema. No palpable deformity, no erythema.), Capillary Refill (less than 2sec to Left hand), No Deformity, No Swelling Neurological/Psych: Oriented x3, Normal Speech, Normal Motor, Normal Sensation, Normal Reflexes Gait: Steady ED Course And Treatment O2 Sat by Pulse Oximetry: 96 (RA) Pulse Ox Interpretation: Normal - Other Rad Left hand X-Ray: Interpreted by Me, Viewed By Me Interpretation: (+)1st MCPJ mod DJD, no acute fx or dislocation Progress Note: On re-eval, pt is afebrile, hemodynamicalys table. Non-toxic. Left hand: exam c/w tendernes sover left1 st MCPJ with mild edema over dorsal aspect hand. No palpable deformity, FAROM, no neurovascular deficits. Imaging review (-) acute fx or dislocation. Thumb spica applied. Pt advised adn ref. to f/u with PMD, hand specialist in 2-3 days for re-eval. return if any new chages. Orthopedic Time Performed: 19:10 Time Out: Side verified, Site verified, Patient ID confirmed Procedure: Splint Type: Thumb spica Location: Left, Hand Consent obtained: Verbal Performed by: Mid-level Provider Diagnosis: Sprain Medical Decision Making Medical Decision Making: Time: 1857 AccuCheck Left hand x-ray Time: 1909 Prednisone 60 mg PO Time: 1950 Ultram 50 mg PO Time: 1919 --Patient is medically clear for discharge and given Rx for Deltasone 40 mg and Ultram 50 mg. Advised to follow up with referred clinics. Clinical Impression: hand pain and joint pain Disposition Counseled Patient/Family Regarding: Studies Performed, Diagnosis, Need For Followup - Disposition Referrals: [facility] [Outside] Disposition: HOME/ ROUTINE Disposition Time: 19:20 Condition: STABLE Additional Instructions: Splint for 1 week Take medication as prescribed Follow up with PMD, hand specialist in2-3 days for re-evaluation. Return to ED if any worsening or new changes. Prescriptions: Prednisone [Deltasone] 40 mg PO DAILY #6 tablet traMADol [Ultram] 50 mg PO TID #7 tab Instructions: Hand Pain (DC), Joint Pain Forms: [facility] (Paraguayan), Work Excuse - Clinical Impression Clinical Impression: Arthralgia of hand
--- NOTE | 2017-12-30 07:20 | RAD ---
PROCEDURE: Left Hand Radiographs. HISTORY: pain COMPARISON: None. FINDINGS: BONES: No acute fracture or destructive bony lesion identified. JOINTS: Limited degenerative joint space narrowing and cortical sclerosis appreciate throughout the interphalangeal joints diffusely compatible degenerative joint disease. Similar changes affect the 1st metacarpal phalangeal joint. No subluxation or dislocation throughout the left hand. SOFT TISSUES: Normal. OTHER FINDINGS: None. IMPRESSION: Limited degenerative changes in the digits diffusely as well as the 1st metacarpophalangeal joint. However, no acute fracture dislocation is appreciated.
== END 2017-12-29 20:02 | disposition home or self-care (01) ==
LOC: C.ER 18:43
DX: M25.542 Pain in joints of left hand (principal)

== ENCOUNTER 2018-01-18 09:34 | Observation (INO) | payer SELFPAY ==
[2018-01-18 09:43] VITALS: BMI 38.7
--- NOTE | 2018-01-18 09:57 | C.PDOC ---
History Of Present Illness 62 Y/O MALE WITH PMHX ASTHMA, DM, HYPELIPIDEMIA AND MULTIPLE TIA PRESENTS TO ED WITH C/O RECUR LEFT SIDED CP X 2-3 DAYS. PATIENT REPORTS PAIN IS LOCALIZED AND INITIALLY INTERMIT NOW CONSTANT, WORSENING. PLEURITIC. PATIENT DENIES SOB/MORENO, URI SX, FEVER. PATIENT PAST CARDIAC WORKUPS INCLUDE STRESS TEST AND ECHOCARDIOGRAM. PATIENT HAS MULTIPLE ADMISSION FOR SAME SYMPTOMS. past medical history of asthma, diabetes, hyperlipidemia, and multiple TIA. Past cardiac workups include stress test and echocardiogram. MULT PRIOR ADMISSIONS FOR SAME EXAM MILD DIST NONTOXIC CHEST WALL NONTEND CTA B/L NO W/R/R +PLEURITIC PAIN NO EDEMA REMAINDER NEG Time Seen by Provider: 01/18/18 09:54 Chief Complaint (Nursing): Chest Pain History Per: Patient History/Exam Limitations: no limitations Onset/Duration Of Symptoms: Days Current Symptoms Are (Timing): Still Present Quality: "Pain" Past Medical History Reviewed: Historical Data, Nursing Documentation, Vital Signs Vital Signs: Last Vital Signs Temp 99.0 F 01/18/18 09:43 Pulse 66 01/18/18 11:25 Resp 18 01/18/18 11:25 BP 108/60 01/18/18 11:25 Pulse Ox 94 L 01/18/18 11:25 - Medical History PMH: Anxiety, Arthritis (neck), Asthma, Back Problems, COPD, CVA, Diabetes ( borderline), HTN, Hypercholesterolemia, Hyperlipidemia, Kidney Stones, Pneumonia , TIA (2002 & 2014), Chronic Pain Surgical History: Tonsillectomy (11 y/o) Family History: States: [place] (Multiple uncles had CO's in their 40's and 50's but not 1st degree family), Diabetes, Hypertension - Social History Hx Tobacco Use: Yes (occasionally) Hx Alcohol Use: No (>20 yrs ago) Hx Substance Use: No - Immunization History Hx Tetanus Toxoid Vaccination: No Hx Influenza Vaccination: No Hx Pneumococcal Vaccination: No Review Of Systems Constitutional: Negative for: Fever, Chills Cardiovascular: Positive for: Chest Pain Respiratory: Negative for: Cough, Shortness of Breath, SOB with Excertion Gastrointestinal: Negative for: Nausea, Vomiting Skin: Negative for: Rash Physical Exam - Physical Exam Appears: Non-toxic, Other (In mild distress) Skin: Warm, Dry, No Rash Head: Atraumatic, Normacephalic Eye(s): bilateral: Normal Inspection Oral Mucosa: Moist Neck: Normal ROM, Supple Chest: Symmetrical, No Tenderness Cardiovascular: Rhythm Regular Respiratory: Normal Breath Sounds, No Accessory Muscle Use, No Rales, No Rhonchi , No Wheezing, Other (Pleuritic pain) Extremity: No Pedal Edema, Capillary Refill (<2 seconds), No Deformity Neurological/Psych: Oriented x3, Normal Speech, Normal Cognition ED Course And Treatment - Laboratory Results Result Diagrams: 01/18/18 10:57 01/18/18 10:57 ECG: Interpreted By Me ECG Rhythm: Sinus Rhythm ECG Interpretation: Normal, No Changes From Prior (10/23/17) Rate From EC (BPM) O2 Sat by Pulse Oximetry: 96 (RA) Pulse Ox Interpretation: Normal - Physician Consult Information Time Consulting Physician Contacted: 11:43 Physician Contacted: Zion Meeks Outcome Of Conversation: C/F PMD WILL ADMIT Disposition Counseled Patient/Family Regarding: Studies Performed, Diagnosis - Disposition Disposition: HOSPITALIZED Disposition Time: 11:44 Condition: STABLE Forms: [facility] (Lithuanian) - POA Present On Arrival: Poor Glycemic Control - Clinical Impression Clinical Impression: Chest pain - Scribe Statement The provider has reviewed the documentation as recorded by the Scribe Matt Mendes All medical record entries made by the Scribe were at my direction and personally dictated by me. I have reviewed the chart and agree that the record accurately reflects my personal performance of the history, physical exam, medical decision making, and the department course for this patient. I have also personally directed, reviewed, and agree with the discharge instructions and disposition. Decision To Admit - Pt Status Changed To: Hospital Disposition Of: Observation - . Bed Request Type: Telemetry Admitting Physician: Zion Meeks Patient Diagnosis: Chest pain
[2018-01-18] MEDS ORDERED: Nitroglycerin 2% Ointment Foilpak UD TOP STA (10:49)
[2018-01-18] MEDS ORDERED: Aspirin 325 mg EC Tablets PO STA (10:49)
[2018-01-18 11:11] LABS: BASO % 0.5 % (0.0-2.0); EOS # 0.1 K/uL (0.0-0.7); EOS % 1.6 % (0.0-4.0); HEMOGLOBIN 14.1 g/dL (12.0-18.0); LYMPH # 1.9 K/uL (1.0-4.3); LYMPH % 29.3 % (20.0-40.0); MEAN CELL VOLUME 84.8 fL (80.0-94.0); MEAN CORPUSCULAR HEMOGLOBIN 29.7 pg (27.0-31.0); MEAN PLATELET VOLUME 7.9 fL (7.2-11.7); MONO # 0.5 K/uL (0.0-0.8); NEUT % 60.6 % (50.0-75.0); NRBC % 0.1 % (0.0-2.0); RBC 4.75 Mil/uL (4.40-5.90); RED CELL DISTRIBUTION WIDTH 13.8 % (11.5-14.5); WHITE BLOOD COUNT 6.7 K/uL (4.8-10.8)
[2018-01-18 11:17] LABS: PARTIAL THROMBOPLASTIN TIME 31 SECONDS (21-34); PROTHROMBIN TIME 10.8 SECONDS (9.7-12.2)
--- NOTE | 2018-01-18 11:21 | RAD ---
PROCEDURE: CHEST RADIOGRAPH, 1 VIEW HISTORY: chest pain COMPARISON: Chest radiograph dated 10/25/2017. FINDINGS: LUNGS: Clear. PLEURA: No pneumothorax or pleural fluid seen. CARDIOVASCULAR: Normal. OSSEOUS STRUCTURES: Unchanged. VISUALIZED UPPER ABDOMEN: Normal. OTHER FINDINGS: None. IMPRESSION: No active disease.
[2018-01-18] MEDS ORDERED: Nitroglycerin 2% Ointment Foilpak UD TOP ONE (11:24)
[2018-01-18 11:28] LABS: ALB/GLOB RATIO 1.3 (1.0-2.1); ALBUMIN 3.9 g/dL (3.5-5.0); ALT/SGPT 37 U/L (21-72); AST/SGOT 34 U/L (17-59); BLOOD UREA NITROGEN 22 mg/dL (9-20); GFR AFRICAN-AMERICAN > 60; GFR NON-AFRICAN AMERICAN > 60
[2018-01-18 11:30] LABS: D DIMER < 200 ng/mlDDU (0-243)
[2018-01-18 11:40] LABS: B-TYPE NATRIURETIC PEPTIDE 32.9 pg/mL (0-900)
[2018-01-18] MEDS ORDERED: Glucagon Recombinant 1 mg Inj IM PRN (13:23)
[2018-01-18] MEDS ORDERED: Dextrose 50% SYRINGE Inj (50 ml) IV PRN (13:23)
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
[2018-01-18] MEDS ORDERED: Albuterol-Ipratrop 3 mg / 0.5 (3 ml) UD INH PRN (15:34)
[2018-01-18 15:55] VITALS: RESP 20
[2018-01-18] MEDS: (Novolin R) Insulin Human Regular 100 units/ml vial SC SCH ×2 (17:03→21:04)
[2018-01-18 18:35] LABS: CK-MB 0.72 ng/mL (0.0-3.38)
[2018-01-19 00:52] VITALS: TEMP 97.5
[2018-01-19 03:21] LABS: CK-MB 0.48 ng/mL (0.0-3.38)
[2018-01-19] MEDS: (Novolin R) Insulin Human Regular 100 units/ml vial SC SCH ×2 (07:30→11:30)
[2018-01-19 08:26] VITALS: BP 120/74; O2SAT 96
[2018-01-19 08:47] LABS: BASO # 0.1 K/uL (0.0-0.2); BASO % 0.7 % (0.0-2.0); EOS # 0.1 K/uL (0.0-0.7); EOS % 1.4 % (0.0-4.0); HEMOGLOBIN 13.5 g/dL (12.0-18.0); LYMPH # 2.1 K/uL (1.0-4.3); LYMPH % 28.3 % (20.0-40.0); MEAN CELL VOLUME 85.4 fL (80.0-94.0); MEAN CORPUSCULAR HEMOGLOBIN 29.3 pg (27.0-31.0); MEAN CORPUSCULAR HGB CONC 34.3 g/dL (33.0-37.0); MONO # 0.6 K/uL (0.0-0.8); MONO % 8.2 % (0.0-10.0); NEUT # 4.7 K/uL (1.8-7.0); NEUT % 61.4 % (50.0-75.0); NRBC % 0.1 % (0.0-2.0); RBC 4.62 Mil/uL (4.40-5.90); RED CELL DISTRIBUTION WIDTH 13.9 % (11.5-14.5); WHITE BLOOD COUNT 7.6 K/uL (4.8-10.8)
--- NOTE | 2018-01-19 08:54 | RAD ---
HISTORY: chest pain COMPARISON: Chest radiograph performed approximately 2.5 hours prior. TECHNIQUE: Chest PA and lateral FINDINGS: LUNGS: No active pulmonary disease. PLEURA: No significant pleural effusion identified. No pneumothorax apparent. CARDIOVASCULAR: Cardiomediastinal silhouette stably prominent. OSSEOUS STRUCTURES: Unchanged. VISUALIZED UPPER ABDOMEN: Normal. OTHER FINDINGS: None. IMPRESSION: No active disease.
[2018-01-19 09:11] LABS: ALB/GLOB RATIO 1.2 (1.0-2.1); ALBUMIN 3.7 g/dL (3.5-5.0); ALT/SGPT 33 U/L (21-72); AST/SGOT 28 U/L (17-59); BLOOD UREA NITROGEN 27 mg/dL (9-20); CALCIUM 8.9 mg/dl (8.6-10.4); GFR AFRICAN-AMERICAN > 60; GFR NON-AFRICAN AMERICAN > 60
[2018-01-19] MEDS ORDERED: Enoxaparin 40 mg Syringe SC SCH (10:00)
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
[2018-01-19 12:07] VITALS: PULSE 63
--- NOTE | 2018-01-19 18:40 | CARD ---
APPROVED REPORT EKG Measurement Heart [id number] <Conclusion> Normal sinus rhythm Minimal voltage criteria for LVH, may be normal variant Borderline ECG
--- NOTE | 2018-01-19 18:40 | CARD ---
APPROVED REPORT EKG Measurement Heart [id number] <Conclusion> Normal sinus rhythm Minimal voltage criteria for LVH, may be normal variant Misplaced precordial leads Please repeat Abnormal ECG
--- NOTE | 2018-01-20 09:38 | VASCLAB ---
PROCEDURE: Lower Extremity Venous Duplex Exam. HISTORY: LE pain PRIORS: 09/29/2017, normal. TECHNIQUE: Bilateral common femoral, femoral, popliteal and posterior tibial, peroneal and great saphenous veins were evaluated. Flow was assessed with color Doppler, compressibility, assessment of phasic flow and augmentation response. Report prepared by ANGIE Nascimento FINDINGS: RIGHT: 1. Common Femoral Vein: 1.1. Compressibility - Fully compressible: Thrombus - None : Flow - Phasic: Augmentation -Normal: Reflux - None. 2. Femoral Vein: 2.1. Compressibility - Fully compressible: Thrombus - None : Flow - Phasic: Augmentation -Normal: Reflux - None. 3. Popliteal Vein: 3.1. Compressibility - Fully compressible: Thrombus - None : Flow - Phasic: Augmentation -Normal: Reflux - None. 4. Posterior Tibial Vein: 4.1. Compressibility - Fully compressible: Thrombus - None: Flow - Phasic: Augmentation -Normal: Reflux - None. 5. Peroneal Vein: 5.1. Compressibility - Fully compressible: Thrombus - None: Flow - Phasic: Augmentation -Normal: Reflux - None. 6. Great Saphenous Vein: 6.1. Compressibility - Fully compressible: Thrombus - None: Flow - Phasic: Augmentation - Normal: Reflux - None. LEFT: 1. Common Femoral Vein: 1.1. Compressibility - Fully compressible: Thrombus - None: Flow - Phasic: Augmentation -Normal: Reflux - None. 2. Femoral Vein: 2.1. Compressibility - Fully compressible: Thrombus - None: Flow - Phasic: Augmentation -Normal: Reflux - None. 3. Popliteal Vein: 3.1. Compressibility - Fully compressible: Thrombus - None : Flow - Phasic: Augmentation -Normal: Reflux - None. 4. Posterior Tibial Vein: 4.1. Compressibility - Fully compressible: Thrombus - None: Flow - Phasic: Augmentation -Normal: Reflux - None. 5. Peroneal Vein: 5.1. Compressibility - Fully compressible: Thrombus - None: Flow - Phasic: Augmentation -Normal: Reflux - None. 6. Great Saphenous Vein: 6.1. Compressibility - Fully compressible: Thrombus - None: Flow - Phasic: Augmentation - Normal: Reflux - None. OTHER FINDINGS: Right: None significant. Left: None significant. IMPRESSION: Right: No evidence of deep or superficial vein thrombosis of the right lower extremity. Normal valve function noted of the right side. Left: No evidence of deep or superficial vein thrombosis of the left lower extremity. Normal valve function noted of the left side.
== END 2018-01-19 13:09 | disposition home or self-care (01) ==
LOC: C.ER 09:34 → C.9E 11:44 → C.5S 12:20
PROVIDERS: ADMIT Hospitalist; ATTEND Hospitalist
DX: R07.89 Other chest pain (principal); E78.5 Hyperlipidemia, unspecified; E11.9 Type 2 diabetes mellitus without complications; I10 Essential (primary) hypertension; Z86.73 Personal history of transient ischemic attack (TIA), and cerebral infarction without residual deficits; F17.210 Nicotine dependence, cigarettes, uncomplicated; J44.9 Chronic obstructive pulmonary disease, unspecified; Z91.81 History of falling
CPT/HCPCS: 36415; 71045; 71046; 80053; 82948; 83735; 83880; 84100; 84484; 85025; 85378; 85610; 85730; 93005; 93970; 99285; G0378; J1650; J1885

== ENCOUNTER 2018-04-24 15:10 | Emergency (ER) | payer SELFPAY ==
[2018-04-24 15:10] VITALS: BMI 38.7
--- NOTE | 2018-04-24 17:49 | C.PDOC ---
History Of Present Illness <Dane Cortes E - Last Filed: 04/24/18 18:17> <Iris Brooks P - Last Filed: 04/24/18 19:22> PGY-[address] Cortes. 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 Patient states pain is a 8/10 at worst and 5/10 at best. Worsens with movement and improves with rest. Patient states he had this pain one year ago and had an XRay done which showed arthritis. Patient also complains of intermittent R posterior rib pain. Patient did not try any OTC meds for the pain. Patients states he fell down 7 steps on his buttock 3 days ago and initially had buttock pain, but that has since resolved. On review of symptoms patient admits to non-radiating R sided chest pain and orthopnea which he states he has "all the time." States he was admitted in January 2018 for the chest pain and was told it was muskuloskeletal. Denies fever, chills, nausea, vomiting, diaphoresis, neck trauma, and rib trauma. Previous studies: 01/30/18 Cervical spine X-Ray: Cervical arthrosis and degenerative disc disease C4-C7. (See full report) 04/12/18 CT Chest w/o contrast: Stable right upper lower lobe nodules number at total of 2 with the right lung within interval nodule subpleural at the lingula base measuring 12.1 mm. This 3rd nodule may have been obscured by atelectasis or artifact previously. There is likely not significantly changed in size as well. All findings are stable in date back at least to prior chest CT 2014. The lingula finding dates back to 04/15/2013. In all likelihood, all these foci are benign. (See full report) (Iris Brooks) <Dane Cortes E - Last Filed: 04/24/18 18:17> <Iris Brooks - Last Filed: 04/24/18 19:22> Time Seen by Provider: 04/24/18 16:06 Chief Complaint (Nursing): Chest Pain Past Medical History - Medical History PMH: Anxiety, Arthritis (neck), Asthma, Back Problems, COPD, CVA, Diabetes ( borderline), HTN, Hypercholesterolemia, Hyperlipidemia, Kidney Stones, Pneumonia , TIA (2002 & 2015), Chronic Pain Denies: Chronic Kidney Disease, Seizures Surgical History: Tonsillectomy (11 y/o) Family History: States: [place] (Multiple uncles had CA's in their 40's and 50's but not 1st degree family), Diabetes, Hypertension - Social History Hx Tobacco Use: Yes (occasionally) Hx Alcohol Use: No (>20 yrs ago) Hx Substance Use: No - Immunization History Hx Tetanus Toxoid Vaccination: No Hx Influenza Vaccination: No Hx Pneumococcal Vaccination: No <Dane Cortes E - Last Filed: 04/24/18 18:17> Vital Signs: Last Vital Signs Temp 98 F 04/24/18 18:28 Pulse 67 04/24/18 18:28 Resp 16 04/24/18 18:28 BP 135/77 04/24/18 18:28 Pulse Ox 99 04/24/18 18:28 Review Of Systems Constitutional: Negative for: Fever, Chills, Sweats Cardiovascular: Positive for: Chest Pain (R sided), Orthopnea. Negative for: Palpitations Respiratory: Positive for: Cough. Negative for: Hemoptysis Gastrointestinal: Negative for: Nausea, Vomiting, Abdominal Pain, Diarrhea Musculoskeletal: Positive for: Neck Pain, Back Pain Neurological: Negative for: Weakness, Numbness <Brooks,Iris P - Last Filed: 04/24/18 19:22> Physical Exam - Physical Exam Appears: No Acute Distress Skin: Normal Color, Warm Head: Atraumatic, Normacephalic Eye(s): bilateral: Normal Inspection, PERRL Ear(s): Bilateral: Normal Nose: Normal Oral Mucosa: Moist Throat: Normal Neck: Normal ROM (painful), No Midline Cervical Tenderness, Paracervical Tenderness (bilaterally; hypertonicity to R paracervical muscles) Chest: Tenderness (to palpation of R chest) Cardiovascular: Rhythm Regular, No Rhythm Irregular, No Friction Rub, No Murmur Respiratory: Normal Breath Sounds, No Rales, No Rhonchi, No Wheezing Gastrointestinal/Abdominal: Bowel Sounds, Soft, No Tenderness Back: Muscle Spasm (R posterior rib 7-8) Extremity: Pedal Edema (bilaterally) Neurological/Psych: Oriented x3, Normal Speech <Brooks,Iris P - Last Filed: 04/24/18 19:22> ED Course And Treatment O2 Sat by Pulse Oximetry: 98 <Dane Cortes - Last Filed: 04/24/18 18:17> ECG: Viewed By Me ECG Rhythm: Sinus Rhythm Interpretation Of ECG: Rate: 69. AK interval: 158ms. QRS: 84ms. QT/QTc: 386/ 413ms - Radiology Nexus Criteria: Negative <Iris Brooks P - Last Filed: 04/24/18 19:22> Medical Decision Making <Dane Cortes E - Last Filed: 04/24/18 18:17> <Iris Brooks P - Last Filed: 04/24/18 19:22> Medical Decision Making: R>L trapezius tenderness no cardiac s/s eval for same 01/18- w/u neg. normal EKG (Dane Cortes) Disposition Doctor Will See Patient In The: Office Counseled Patient/Family Regarding: Studies Performed, Diagnosis - Disposition Disposition Time: 18:19 <Dane Cortes - Last Filed: 04/24/18 18:17> <Iris Brooks P - Last Filed: 04/24/18 19:22> - Disposition Referrals: [facility] [Outside] [facility] [facility] [Outside] [facility] [Outside] [facility] [Outside] Disposition: HOME/ ROUTINE Condition: GOOD Additional Instructions: ice packs 1/2 hour per hour, nothing hot no hot showers, no heating pads Motrin/Advil/Ibuprofen 400-600 mg every 6 hours as needed Normal work routine EKG NORMAL today Instructions: Muscle Strain, Cervical Muscle Strain Forms: [employer] ([place]), Work Excuse - Clinical Impression Clinical Impression: Trapezius muscle strain
--- NOTE | 2018-04-24 18:15 | C.PDOC ---
History Of Present Illness PGY-[address] Cortes. 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 Patient states pain is a 8/10 at worst and 5/10 at best. Worsens with movement and improves with rest. Patient states he had this pain approximately one year ago and had an XRay done which showed arthritis. Patient also complains of intermittent R posterior rib pain. Patient did not try any OTC meds for the pain. Patient states he fell down 7 steps on his buttock one week ago. He states he initiallly had buttock pain, but it has since resolved. On review of symptoms patient admits to non-radiateing R sided chest pain and orthopnea which he states he has "all the time." States he was admitted in January 2018 for the chest pain and was told it was muskuloskeletal. Denies fever, chills, nausea, vomiting, diaphoresis, Time Seen by Provider: 04/24/18 16:06 Chief Complaint (Nursing): Chest Pain Past Medical History Vital Signs: Last Vital Signs Temp 98.4 F 04/24/18 15:37 Pulse 77 04/24/18 15:37 Resp 18 04/24/18 15:37 BP 135/76 04/24/18 15:37 Pulse Ox 98 04/24/18 15:37 - Medical History PMH: Anxiety, Arthritis (neck), Asthma, Back Problems, COPD, CVA, Diabetes ( borderline), HTN, Hypercholesterolemia, Hyperlipidemia, Kidney Stones, Pneumonia , TIA (2002 & 2014), Chronic Pain Denies: Chronic Kidney Disease, Seizures Surgical History: Tonsillectomy (11 y/o) Family History: States: [place] (Multiple uncles had GA's in their 40's and 50's but not 1st degree family), Diabetes, Hypertension - Social History Hx Tobacco Use: Yes (occasionally) Hx Alcohol Use: No (>20 yrs ago) Hx Substance Use: No - Immunization History Hx Tetanus Toxoid Vaccination: No Hx Influenza Vaccination: No Hx Pneumococcal Vaccination: No ED Course And Treatment O2 Sat by Pulse Oximetry: 98 Disposition - Disposition
[2018-04-24 18:29] VITALS: BP 135/77; PULSE 67; RESP 16; TEMP 98; O2SAT 99
--- NOTE | 2018-04-25 11:51 | CARD ---
APPROVED REPORT Date of service: 04/24/2018 EKG Measurement Heart [id number] <Conclusion> Normal sinus rhythm Moderate voltage criteria for LVH, may be normal variant Borderline ECG
== END 2018-04-24 18:43 | disposition home or self-care (01) ==
LOC: C.ER 15:10
DX: S16.1XXA Strain of muscle, fascia and tendon at neck level, initial encounter (principal); Y93.E5 Activity, floor mopping and cleaning; Y99.0 Civilian activity done for income or pay; E11.9 Type 2 diabetes mellitus without complications; J44.9 Chronic obstructive pulmonary disease, unspecified; E78.5 Hyperlipidemia, unspecified; E78.00 Pure hypercholesterolemia, unspecified; I10 Essential (primary) hypertension; Z72.0 Tobacco use

== ENCOUNTER 2018-05-31 12:05 | Observation (INO) | payer MEDICAID, SELFPAY ==
[2018-05-31 12:05] VITALS: BMI 38.7
--- NOTE | 2018-05-31 12:41 | C.PDOC ---
History Of Present Illness 62 y/o male,w/PMhx of diabetes, HTN, and hypercholesterolemia, presents to the ER complaining of left sided chest pain and SOB which has been present for the past 1 day. Patient states that the chest pain radiates to the arm. Patient reports that he has not been taking his medications for HTN, diabetes, and hypercholesterolemia because he had some sort of reaction to the medication. He notes that he has an upcoming appointment with the clinic, however he had pain so he decided to visit the ER. Denies having fever, chills, nausea, vomiting, and leg swelling. Time Seen by Provider: 05/31/18 12:19 Chief Complaint (Nursing): Shortness Of Breath History Per: Patient History/Exam Limitations: no limitations Onset/Duration Of Symptoms: Days Current Symptoms Are (Timing): Still Present Severity: Moderate Past Medical History Reviewed: Historical Data, Nursing Documentation, Vital Signs Vital Signs: Last Vital Signs Temp 98.6 F 05/31/18 12:12 Pulse 80 05/31/18 12:12 Resp 16 05/31/18 12:29 BP 129/77 05/31/18 12:12 Pulse Ox 95 05/31/18 12:29 - Medical History PMH: Anxiety, Arthritis (neck), Asthma, Back Problems, COPD, CVA, Diabetes (borderline), HTN, Hypercholesterolemia, Hyperlipidemia, Kidney Stones, Pneumonia, TIA (2002 & 2014), Chronic Pain Denies: Chronic Kidney Disease, Seizures Surgical History: Tonsillectomy (11 y/o) Family History: States: [place] (Multiple uncles had MO's in their 40's and 50's but not 1st degree family), Diabetes, Hypertension - Social History Hx Tobacco Use: Yes (occasionally) Hx Alcohol Use: No (>20 yrs ago) Hx Substance Use: No - Immunization History Hx Tetanus Toxoid Vaccination: No Hx Influenza Vaccination: No Hx Pneumococcal Vaccination: No Review Of Systems Except As Marked, All Systems Reviewed And Found Negative. Constitutional: Negative for: Fever, Chills Cardiovascular: Positive for: Chest Pain (left-sided chest pain) Respiratory: Positive for: Shortness of Breath. Negative for: Cough Gastrointestinal: Negative for: Nausea, Vomiting Physical Exam - Physical Exam Appears: Non-toxic, No Acute Distress Skin: Normal Color, Warm, Dry Head: Atraumatic, Normacephalic Eye(s): bilateral: Normal Inspection Nose: Normal Oral Mucosa: Moist Neck: Supple Chest: Symmetrical Cardiovascular: Rhythm Regular Respiratory: Normal Breath Sounds, No Rales, No Rhonchi, No Wheezing Gastrointestinal/Abdominal: Normal Exam, Soft, No Tenderness, No Guarding, No Rebound Extremity: Normal ROM, Other (mild edema of bilateral lower extremities) Neurological/Psych: Oriented x3, Normal Speech ED Course And Treatment - Laboratory Results Result Diagrams: 05/31/18 12:38 05/31/18 12:38 Lab Interpretation: No Acute Changes ECG: Interpreted By Me ECG Rhythm: Sinus Rhythm Rate From EC O2 Sat by Pulse Oximetry: 95 (RA) Pulse Ox Interpretation: Normal - Radiology CXR: Interpreted by Me CXR Interpretation: Yes: No Acute Disease Progress Note: Treated with ASA 325 mg PO. On re-evaluation lungs clear in no distress Reassessment Condition: Unchanged - Physician Consult Information Physician Contacted: Carlos Miranda Outcome Of Conversation: admit Medical Decision Making Medical Decision Making: Plan: --Labs --EKG --CXR --UA Disposition Discussed With DrRandi: Carlos Miranda Doctor Will See Patient In The: Hospital - Disposition Disposition: HOME/ ROUTINE Disposition Time: 15:30 Condition: STABLE - POA Present On Arrival: None - Clinical Impression Clinical Impression: Chest pain - PA / ADMITTING OFFICER / Resident Statement MD/DO has reviewed & agrees with the documentation as recorded. - Scribe Statement The provider has reviewed the documentation as recorded by the Yuliibe Raven Bronson Provider Attestation All medical record entries made by the Scribe were at my direction and personally dictated by me. I have reviewed the chart and agree that the record accurately reflects my personal performance of the history, physical exam, medical decision making, and the department course for this patient. I have also personally directed, reviewed, and agree with the discharge instructions and disposition. Decision To Admit - Pt Status Changed To: Hospital Disposition Of: Observation - . Bed Request Type: Telemetry Admitting Physician: Carlos Miranda Patient Diagnosis: Chest pain, Chest pain
[2018-05-31 12:42] LABS: BASO % 0.4 % (0.0-2.0); EOS # 0.1 K/uL (0.0-0.7); EOS % 1.6 % (0.0-4.0); HEMOGLOBIN 14.2 g/dL (12.0-18.0); LYMPH # 2.3 K/uL (1.0-4.3); LYMPH % 27.3 % (20.0-40.0); MEAN CELL VOLUME 84.4 fL (80.0-94.0); MEAN CORPUSCULAR HEMOGLOBIN 28.5 pg (27.0-31.0); MEAN CORPUSCULAR HGB CONC 33.7 g/dL (33.0-37.0); MEAN PLATELET VOLUME 7.6 fL (7.2-11.7); MONO # 0.6 K/uL (0.0-0.8); MONO % 7.6 % (0.0-10.0); NEUT # 5.4 K/uL (1.8-7.0); NEUT % 63.1 % (50.0-75.0); RED CELL DISTRIBUTION WIDTH 13.9 % (11.5-14.5); WHITE BLOOD COUNT 8.5 K/uL (4.8-10.8)
[2018-05-31 12:55] LABS: ALB/GLOB RATIO 1.4 (1.0-2.1); ALBUMIN 4.1 g/dL (3.5-5.0); ALT/SGPT 33 U/L (21-72); AST/SGOT 25 U/L (17-59); BLOOD UREA NITROGEN 23 mg/dL (9-20); CALCIUM 9.5 mg/dl (8.6-10.4); GFR NON-AFRICAN AMERICAN > 60; LIPASE 59 U/L (23-300)
[2018-05-31 13:06] LABS: B-TYPE NATRIURETIC PEPTIDE 39.2 pg/mL (0-900); CK-MB 0.96 ng/mL (0.0-3.38)
--- NOTE | 2018-05-31 13:08 | RAD ---
HISTORY: SOB COMPARISON: Chest x-ray performed 01/18/18 TECHNIQUE: Chest PA and lateral FINDINGS: Examination markedly limited by habitus and hypoinflation. LUNGS: Bibasilar atelectasis or infiltrates. Please note that chest x-ray has limited sensitivity for the detection of pulmonary masses. PLEURA: No significant pleural effusion identified. No definite pneumothorax . CARDIOVASCULAR: Cardiomegaly. Atherosclerotic calcification present. OSSEOUS STRUCTURES: Degenerative changes. VISUALIZED UPPER ABDOMEN: Unremarkable. OTHER FINDINGS: None. IMPRESSION: Hypoinflation. Bibasilar atelectasis or infiltrates. Cardiomegaly.
[2018-05-31 14:31] LABS: SQUAMOUS EPITHIAL < 1 /hpf (0-5); URINE BILIRUBIN NEGATIVE (NEGATIVE); URINE BLOOD NEGATIVE (NEGATIVE); URINE CLARITY Clear (Clear); URINE COLOR Yellow (YELLOW); URINE GLUCOSE (UA) NORMAL (Normal); URINE LEUKOCYTE ESTERASE NEG Leu/uL (Negative); URINE PROTEIN NEGATIVE (NEGATIVE); URINE UROBILINOGEN NORMAL mg/dL (0.2-1.0)
[2018-05-31] MEDS ORDERED: Aspirin 325 mg EC Tablets PO STA (14:34)
[2018-05-31] MEDS ORDERED: Aspirin 325 mg EC Tablets PO ONE (14:49)
[2018-05-31] MEDS ORDERED: Dextrose 50% SYRINGE Inj (50 ml) IV PRN (16:39)
[2018-05-31] MEDS ORDERED: Glucagon Recombinant 1 mg Inj IM PRN (16:39)
--- NOTE | 2018-05-31 17:20 | CP.PCM.HP ---
History of Present Illness - History of Present Illness History of Present Illness: History and physical for Hospitalist Service. CC "chest pressure" HPI: Patient is a 62 year old male with history of Type 2 DM, HTN, HLD and asthma who presents with left sided chest pressure-like pain that radiates up to his left neck and into his head. He states that his chest pressure started at 6am yesterday morning after he returned from working overnight at his job. 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 He states he did not experience his chest pain while he was working overnight, but he noticed it when he got home. He denies any heavy lifting or exerting himself overnight. He states he has chronic pain in his neck, but when his pain started it was a 6/10, and he rates the pain in his head a 10/10. He denies any aggravating or alleviating factors. He states he was able to sleep intermittently during the day yesterday, but kept waking up because of the pain. He states the pressure waxed and waned during the day yesterday and he was able to go back to work overnight last night without any issues. He states he was called into work again and he was able to bike without issues. While he was working, he experiencing chest pressure at 11am and his friend urged him to seek medical attention. He states this episode of chest pressure lasted about 1 hour today. He stated he was not able to ride a bike, but his friend called an Uber for him to come in to the Emergency Department. He admits to feeling warm yesterday and today, stating he felt sweaty. Admits to associated lightheadedness as welll. He denies chills, nausea, shortness of breath, palpitations, vomiting, abdominal pain, diarrhea, constipation, dysuria. He states he has had chronic low back pain for years, and he states he has also had swelling of his legs for years as well. PMD: Dr. Blair PMH: Type 2 DM, HTN, HLD, Asthma PSH: right 3rd digit surgery, cyst removal on skin, foot surgery x4 (removal of calluses) Home meds: Lisinopril 2.5mg PO, Metformin 850mg PO BID, Lipitor 10mg PO , ASA 8 1mg PO, Naproxen 500mg PO BID PRN (Patient states he stopped taking all his medications 4 weeks ago, because one of them made him itchy Social history: Quit smoking 2 years ago, smokes 4ppd x20 years. Stopped drinking alcohol at the age of 28. Denies recreational drug use. Currently lives and works at a [employer]. Micah Rodriguez is healthcare proxy for patient. No advanced healthcare directive in place. Patient unable to read. Family history: Mother - breast cancer, Father in an accident. Sister has HTN, DM, HLD. Maternal uncles from strokes. Allergies: NKDA Present on Admission - Present on Admission Any Indicators Present on Admission: No History of DVT/PE: No Review of Systems - Constitutional Constitutional: absent: Chills - EENT Eyes: absent: Change in Vision Nose/Mouth/Throat: absent: Nasal Congestion, Sore Throat - Cardiovascular Cardiovascular: Chest Pain, Pain Radiating to Arm/Neck/Jaw. absent: Dyspnea - Respiratory Respiratory: absent: Cough, Dyspnea - Gastrointestinal Gastrointestinal: absent: Abdominal Pain, Constipation, Diarrhea, Nausea, Vomiting - Genitourinary Genitourinary: absent: Dysuria, Urinary Incontinence - Musculoskeletal Musculoskeletal: Back Pain (chronic), Neck Pain - Neurological Neurological: absent: Numbness, Paresthesias, Tingling - Psychiatric Psychiatric: absent: Anxiety, Depression Past Patient History - Infectious Disease Hx of Infectious Diseases: None - Past Medical History & Family History Past Medical History?: Yes - Past Social History Smoking Status: Former Smoker - CARDIAC Hx Hypercholesterolemia: Yes Hx Hypertension: Yes - PULMONARY Hx Asthma: Yes Hx Chronic Obstructive Pulmonary Disease (COPD): Yes Hx Pneumonia: Yes - NEUROLOGICAL Hx Seizures: No Hx Transient Ischemic Attacks (TIA): Yes (2002 & 2014) - HEENT Hx HEENT Problems: No - RENAL Hx Chronic Kidney Disease: No Hx Kidney Stones: Yes - ENDOCRINE/METABOLIC Hx Endocrine Disorders: No Hx Diabetes Mellitus Type 2: Yes - HEMATOLOGICAL/ONCOLOGICAL Hx Blood Disorders: No - INTEGUMENTARY Hx Dermatological Problems: No - MUSCULOSKELETAL/RHEUMATOLOGICAL Hx Arthritis: Yes (neck) - GASTROINTESTINAL Hx Gastrointestinal Disorders: No - GENITOURINARY/GYNECOLOGICAL Hx Genitourinary Disorders: No - PSYCHIATRIC Hx Anxiety: Yes Hx Substance Use: No - SURGICAL HISTORY Hx Tonsillectomy: Yes (11 y/o) - ANESTHESIA Hx Anesthesia: Yes Hx Anesthesia Reactions: No Meds Allergies/Adverse Reactions: Allergies Allergy/AdvReac Type Severity Reaction Status Date / Time No Known Allergies Allergy Verified 05/31/18 12:11 Physical Exam - Constitutional Appears: Well, No Acute Distress - Head Exam Head Exam: ATRAUMATIC, NORMOCEPHALIC - Eye Exam Eye Exam: EOMI, PERRL - ENT Exam ENT Exam: Mucous Membranes Moist - Neck Exam Neck exam: Positive for: Full Rom, Tenderness (tenderness of left paracervical muscles, worse with ROM. no midline tenderness ) - Respiratory Exam Respiratory Exam: Clear to Auscultation Bilateral. absent: Rales, Rhonchi, Wheezes, Stridor - Cardiovascular Exam Cardiovascular Exam: REGULAR RHYTHM, +S1, +S2. absent: Diastolic murmur, Gallop, Irregular Rhythm, JVD - GI/Abdominal Exam GI & Abdominal Exam: Normal Bowel Sounds, Soft. absent: Distended, Firm, Guarding, Hernia, Tenderness - Extremities Exam Extremities exam: Positive for: normal capillary refill, pedal edema (minimal edema of lower extremities), pedal pulses present. Negative for: calf tenderness - Back Exam Back exam: absent: CVA tenderness (L), CVA tenderness (R) - Neurological Exam Neurological exam: Alert, CN II-XII Intact, Oriented x3 - Psychiatric Exam Psychiatric exam: Normal Affect, Normal Mood - Skin Skin Exam: Dry, Intact, Warm Results - Vital Signs Recent Vital Signs: Last Vital Signs Temp 98 F 05/31/18 16:33 Pulse 70 05/31/18 16:33 Resp 18 05/31/18 16:33 BP 129/78 05/31/18 16:33 Pulse Ox 96 05/31/18 16:33 - Labs Result Diagrams: 05/31/18 12:38 05/31/18 12:38 Labs: Laboratory Results - last 24 hr 05/31/18 05/31/18 05/31/18 12:38 12:38 14:07 WBC 8.5 RBC 5.00 Hgb 14.2 Hct 42.2 MCV 84.4 MCH 28.5 MCHC 33.7 RDW 13.9 Plt Count 267 MPV 7.6 Neut % (Auto) 63.1 Lymph % (Auto) 27.3 [place] % (Auto) 7.6 Eos % (Auto) 1.6 Baso % (Auto) 0.4 Neut # (Auto) 5.4 Lymph # (Auto) 2.3 [place] # (Auto) 0.6 Eos # (Auto) 0.1 Baso # (Auto) 0.0 Sodium 141 Potassium 4.5 Chloride 104 Carbon Dioxide 25 Anion Gap 17 BUN 23 H Creatinine 0.9 Est GFR ( Amer) > 60 Est GFR (Non-Af Amer) > 60 POC Glucose (mg/dL) Random Glucose 125 H Calcium 9.5 Total Bilirubin 0.3 AST 25 ALT 33 Alkaline Phosphatase 61 CK-MB (Mass) 0.96 Troponin I < 0.0120 NT-Pro-B Natriuret Pep 39.2 Total Protein 7.1 Albumin 4.1 Globulin 2.9 Albumin/Globulin Ratio 1.4 Lipase 59 Urine Color Yellow Urine Clarity Clear Urine pH 5.0 Ur Specific [place] 1.018 Urine Protein Negative Urine Glucose (UA) Normal Urine Ketones Negative Urine Blood Negative Urine Nitrate Negative Urine Bilirubin Negative Urine Urobilinogen Normal Ur Leukocyte Esterase Neg Urine WBC (Auto) < 1 Urine RBC (Auto) < 1 Ur Squamous Epith Cells < 1 05/31/18 16:51 WBC RBC Hgb Hct MCV MCH MCHC RDW Plt Count MPV Neut % (Auto) Lymph % (Auto) [place] % (Auto) Eos % (Auto) Baso % (Auto) Neut # (Auto) Lymph # (Auto) [place] # (Auto) Eos # (Auto) Baso # (Auto) Sodium Potassium Chloride Carbon Dioxide Anion Gap BUN Creatinine Est GFR ( Amer) Est GFR (Non-Af Amer) POC Glucose (mg/dL) 119 H Random Glucose Calcium Total Bilirubin AST ALT Alkaline Phosphatase CK-MB (Mass) Troponin I NT-Pro-B Natriuret Pep Total Protein Albumin Globulin Albumin/Globulin Ratio Lipase Urine Color Urine Clarity Urine pH Ur Specific [place] Urine Protein Urine Glucose (UA) Urine Ketones Urine Blood Urine Nitrate Urine Bilirubin Urine Urobilinogen Ur Leukocyte Esterase Urine WBC (Auto) Urine RBC (Auto) Ur Squamous Epith Cells Assessment & Plan - Assessment and Plan (Free Text) Plan: Assessment/plan Assessment 62 year old male with history of HTN, DM type 2, HLD, asthma who presents for chest pressure radiating up to left neck and head. [facility] Plan Chest pain rule out acute coronary syndrome Multiple risk factors including obesity, DM, HTN, HLD, former smoker Cardiology Dr. Pink consulted, help appreciated EKG: Sinus rhythm at 78, no ST-T changes. CXR: hypoinflation, bibasilar atelectasis/infiltrates, cardiomegaly. proBNP 39 Initial troponins <0.0120 Follow up repeat troponins x2 Follow up lipid panel, TSH, T4 ASA 81mg PO Lisinopril 5mg PO History of Hypertension Lisinopril 5mg PO Current BP 129/78 History of Type 2 DM Metformin held On low dose ISS Hypoglycemia protocol History of Hyperlipidemia Obesity Crestor 5mg PO HS f/u lipid panel Prophylaxis DVT: Lovenox 40mg SC GI: Pepcid 20mg PO Case discussed with Dr. Ruben Rivera, PGY1
[2018-05-31 20:04] LABS: HDL CHOLESTEROL 47 mg/dL (30-70)
[2018-05-31 20:15] LABS: LDL CHOLESTEROL 115 mg/dL (0-129)
[2018-05-31 20:24] LABS: CK-MB 0.88 ng/mL (0.0-3.38)
[2018-05-31] MEDS: (Novolin R) Insulin Human Regular 100 units/ml vial SC SCH (21:23)
[2018-06-01 01:19] LABS: CK-MB 0.74 ng/mL (0.0-3.38)
[2018-06-01 07:17] LABS: BASO % 0.7 % (0.0-2.0); EOS # 0.1 K/uL (0.0-0.7); LYMPH # 2.4 K/uL (1.0-4.3); MEAN CELL VOLUME 84.6 fL (80.0-94.0); MEAN CORPUSCULAR HEMOGLOBIN 29.4 pg (27.0-31.0); MEAN CORPUSCULAR HGB CONC 34.8 g/dL (33.0-37.0); MEAN PLATELET VOLUME 7.7 fL (7.2-11.7); MONO # 0.7 K/uL (0.0-0.8); MONO % 9.8 % (0.0-10.0); NEUT # 3.6 K/uL (1.8-7.0); NEUT % 52.5 % (50.0-75.0); NRBC % 0.1 % (0.0-2.0); RBC 5.11 Mil/uL (4.40-5.90); RED CELL DISTRIBUTION WIDTH 13.7 % (11.5-14.5); WHITE BLOOD COUNT 6.8 K/uL (4.8-10.8)
--- NOTE | 2018-06-01 07:31 | CP.PCM.CON ---
<Rehan Coppola - Last Filed: 06/01/18 10:40> History of Present Illness - History of Present Illness History of Present Illness: Rehan Coppola, PGY-[address] Pink CC: Chest Pressure HPI: Mr. 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 Patient states that he occasionally experiences symptoms of chest pressure-like pain, "like someone sticking their knee onto my chest," on the left side of the chest. Patient reports that yesterday, symptoms worsened and occurred multiple times after patient completed work overnight and was lying down. Patient states he often gets these feelings of pressure not when active and riding bicycle but when lying down after activity. Patient slept poorly due to recurrence of the symptoms. Patient reports pressure-like pain at 10/10 yesterday that radiated up into his L shoulder and left side of the neck. Associated with diaphoresis and dizziness yesterday, but at time of evaluation today, patient denies current chest pain, shortness of breath, palpitations, nausea, diaphoresis. 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 Patient states he has not taken his medications for 3 weeks because he ran out of his prescriptions, and additionally notes that he believes one of the medications make him itchy, but is unsure which. Last echo was performed 09/25 which showed normal EF of 73%. Home meds: Lisinopril 2.5mg PO, Metformin 850mg PO BID, Lipitor 10mg PO , ASA 81mg PO, Naproxen 500mg PO BID PRN Social history: Quit smoking 2 years ago, smokes 4ppd x20 years. Family history: Maternal uncles from heart attacks in their 50s and strokes in their 60s. Past Patient History - Infectious Disease Hx of Infectious Diseases: None - Past Medical History & Family History Past Medical History?: Yes - Past Social History Smoking Status: Former Smoker - CARDIAC Hx Hypercholesterolemia: Yes Hx Hypertension: Yes - PULMONARY Hx Asthma: Yes Hx Chronic Obstructive Pulmonary Disease (COPD): Yes Hx Pneumonia: Yes - NEUROLOGICAL Hx Seizures: No Hx Transient Ischemic Attacks (TIA): Yes (2002 & 2014) - HEENT Hx HEENT Problems: No - RENAL Hx Chronic Kidney Disease: No Hx Kidney Stones: Yes - ENDOCRINE/METABOLIC Hx Endocrine Disorders: No Hx Diabetes Mellitus Type 2: Yes - HEMATOLOGICAL/ONCOLOGICAL Hx Blood Disorders: No - INTEGUMENTARY Hx Dermatological Problems: No - MUSCULOSKELETAL/RHEUMATOLOGICAL Hx Arthritis: Yes (neck) - GASTROINTESTINAL Hx Gastrointestinal Disorders: No - GENITOURINARY/GYNECOLOGICAL Hx Genitourinary Disorders: No - PSYCHIATRIC Hx Anxiety: Yes Hx Substance Use: No - SURGICAL HISTORY Hx Tonsillectomy: Yes (11 y/o) - ANESTHESIA Hx Anesthesia: Yes Hx Anesthesia Reactions: No Meds Allergies/Adverse Reactions: Allergies Allergy/AdvReac Type Severity Reaction Status Date / Time No Known Allergies Allergy Verified 05/31/18 12:11 - Medications Medications: Current Medications Aspirin (Aspirin Chewable) 81 mg PO DAILY [facility] Dextrose (Dextrose 50% Inj) 0 ml IV STAT PRN; Protocol PRN Reason: Hypoglycemia Protocol Dextrose (Glutose 15) 0 gm PO ONCE PRN; Protocol PRN Reason: Hypoglycemia Protocol Enoxaparin Sodium (Lovenox) 40 mg SC DAILY [facility] Famotidine (Pepcid) 20 mg PO DAILY [facility] Glucagon (Glucagen Diagnostic Kit) 0 mg IM STAT PRN; Protocol PRN Reason: Hypoglycemia Protocol Dextrose (Dextrose 5% In Water 1000 Ml) 1,000 mls @ 0 mls/hr IV .Q0M PRN; Protocol PRN Reason: Hypoglycemia Protocol Influenza Virus Vaccine (Fluzone Quad [id number]) 60 mcg IM .ONCE ONE Stop: 06/02/18 10:01 Insulin Human Regular (Novolin R) 0 unit SC [facility]; Protocol Last Admin: 05/31/18 21:23 Dose: Not Given Lisinopril (Zestril) 5 mg PO DAILY [facility] Rosuvastatin Calcium (Crestor) 5 mg PO HS [facility] Last Admin: 05/31/18 21:10 Dose: 5 mg Physical Exam - Constitutional Appears: Well, Non-toxic, No Acute Distress - Head Exam Head Exam: ATRAUMATIC, NORMAL INSPECTION, NORMOCEPHALIC - Eye Exam Eye Exam: EOMI, Normal appearance - ENT Exam ENT Exam: Mucous Membranes Moist - Neck Exam Neck exam: Positive for: Normal Inspection - Respiratory Exam Respiratory Exam: Clear to Auscultation Bilateral, NORMAL BREATHING PATTERN. absent: Chest Wall Tenderness, Rales, Rhonchi, Wheezes, Respiratory Distress, Stridor - Cardiovascular Exam Cardiovascular Exam: RRR, +S1, +S2. absent: Bradycardia, Tachycardia, Irregular Rhythm, JVD - GI/Abdominal Exam GI & Abdominal Exam: Soft. absent: Distended, Firm, Guarding, Rebound, Tenderness Additional comments: morbid obesity - Extremities Exam Extremities exam: Positive for: pedal edema (1+, reported as chronic issue) - Back Exam Back exam: absent: CVA tenderness (L), CVA tenderness (R) - Neurological Exam Neurological exam: Alert, Oriented x3 - Skin Skin Exam: Dry, Intact, Normal Color, Warm Results - Vital Signs Recent Vital Signs: Last Vital Signs Temp 98.1 F 06/01/18 04:29 Pulse 66 06/01/18 04:29 Resp 20 06/01/18 04:29 BP 108/69 06/01/18 04:29 Pulse Ox 96 06/01/18 04:29 - Labs Result Diagrams: 06/01/18 06:50 06/01/18 06:50 Labs: Laboratory Results - last 24 hr 05/31/18 05/31/18 05/31/18 12:38 12:38 14:07 WBC 8.5 RBC 5.00 Hgb 14.2 Hct 42.2 MCV 84.4 MCH 28.5 MCHC 33.7 RDW 13.9 Plt Count 267 MPV 7.6 Neut % (Auto) 63.1 Lymph % (Auto) 27.3 Tw[place]gs % (Auto) 7.6 Eos % (Auto) 1.6 Baso % (Auto) 0.4 Neut # (Auto) 5.4 Lymph # (Auto) 2.3 [place]gs # (Auto) 0.6 Eos # (Auto) 0.1 Baso # (Auto) 0.0 Sodium 141 Potassium 4.5 Chloride 104 Carbon Dioxide 25 Anion Gap 17 BUN 23 H Creatinine 0.9 Est GFR ( Amer) > 60 Est GFR (Non-Af Amer) > 60 POC Glucose (mg/dL) Random Glucose 125 H Calcium 9.5 Total Bilirubin 0.3 AST 25 ALT 33 Alkaline Phosphatase 61 Total Creatine Kinase CK-MB (Mass) 0.96 Troponin I < 0.0120 NT-Pro-B Natriuret Pep 39.2 Total Protein 7.1 Albumin 4.1 Globulin 2.9 Albumin/Globulin Ratio 1.4 Triglycerides Cholesterol LDL Cholesterol Direct HDL Cholesterol Lipase 59 Free T4 TSH 3rd Generation Urine Color Yellow Urine Clarity Clear Urine pH 5.0 Ur Specific [place] 1.018 Urine Protein Negative Urine Glucose (UA) Normal Urine Ketones Negative Urine Blood Negative Urine Nitrate Negative Urine Bilirubin Negative Urine Urobilinogen Normal Ur Leukocyte Esterase Neg Urine WBC (Auto) < 1 Urine RBC (Auto) < 1 Ur Squamous Epith Cells < 1 05/31/18 05/31/18 05/31/18 16:51 18:24 18:24 WBC RBC Hgb Hct MCV MCH MCHC RDW Plt Count MPV Neut % (Auto) Lymph % (Auto) Twiggs % (Auto) Eos % (Auto) Baso % (Auto) Neut # (Auto) Lymph # (Auto) [place] # (Auto) Eos # (Auto) Baso # (Auto) Sodium Potassium Chloride Carbon Dioxide Anion Gap BUN Creatinine Est GFR ( Amer) Est GFR (Non-Af Amer) POC Glucose (mg/dL) 119 H Random Glucose Calcium Total Bilirubin AST ALT Alkaline Phosphatase Total Creatine Kinase 70 CK-MB (Mass) 0.88 Troponin I < 0.0120 NT-Pro-B Natriuret Pep Total Protein Albumin Globulin Albumin/Globulin Ratio Triglycerides 245 H D Cholesterol 214 H LDL Cholesterol Direct 115 HDL Cholesterol 47 Lipase Free T4 0.76 L TSH 3rd Generation 1.96 Urine Color Urine Clarity Urine pH Ur Specific [place] Urine Protein Urine Glucose (UA) Urine Ketones Urine Blood Urine Nitrate Urine Bilirubin Urine Urobilinogen Ur Leukocyte Esterase Urine WBC (Auto) Urine RBC (Auto) Ur Squamous Epith Cells 05/31/18 06/01/18 06/01/18 21:02 00:50 06:30 WBC RBC Hgb Hct MCV MCH MCHC RDW Plt Count MPV Neut % (Auto) Lymph % (Auto) [place]gs % (Auto) Eos % (Auto) Baso % (Auto) Neut # (Auto) Lymph # (Auto) [place] # (Auto) Eos # (Auto) Baso # (Auto) Sodium Potassium Chloride Carbon Dioxide Anion Gap BUN Creatinine Est GFR ( Amer) Est GFR (Non-Af Amer) POC Glucose (mg/dL) 126 H 135 H Random Glucose Calcium Total Bilirubin AST ALT Alkaline Phosphatase Total Creatine Kinase 64 CK-MB (Mass) 0.74 Troponin I < 0.0120 NT-Pro-B Natriuret Pep Total Protein Albumin Globulin Albumin/Globulin Ratio Triglycerides Cholesterol LDL Cholesterol Direct HDL Cholesterol Lipase Free T4 TSH 3rd Generation Urine Color Urine Clarity Urine pH Ur Specific [place] Urine Protein Urine Glucose (UA) Urine Ketones Urine Blood Urine Nitrate Urine Bilirubin Urine Urobilinogen Ur Leukocyte Esterase Urine WBC (Auto) Urine RBC (Auto) Ur Squamous Epith Cells 06/01/18 06:50 WBC 6.8 RBC 5.11 Hgb 15.0 Hct 43.2 MCV 84.6 MCH 29.4 MCHC 34.8 RDW 13.7 Plt Count 256 MPV 7.7 Neut % (Auto) 52.5 Lymph % (Auto) 35.0 Twiggs % (Auto) 9.8 Eos % (Auto) 2.0 Baso % (Auto) 0.7 Neut # (Auto) 3.6 Lymph # (Auto) 2.4 [place] # (Auto) 0.7 Eos # (Auto) 0.1 Baso # (Auto) 0.0 Sodium Potassium Chloride Carbon Dioxide Anion Gap BUN Creatinine Est GFR ( Amer) Est GFR (Non-Af Amer) POC Glucose (mg/dL) Random Glucose Calcium Total Bilirubin AST ALT Alkaline Phosphatase Total Creatine Kinase CK-MB (Mass) Troponin I NT-Pro-B Natriuret Pep Total Protein Albumin Globulin Albumin/Globulin Ratio Triglycerides Cholesterol LDL Cholesterol Direct HDL Cholesterol Lipase Free T4 TSH 3rd Generation Urine Color Urine Clarity Urine pH Ur Specific [place] Urine Protein Urine Glucose (UA) Urine Ketones Urine Blood Urine Nitrate Urine Bilirubin Urine Urobilinogen Ur Leukocyte Esterase Urine WBC (Auto) Urine RBC (Auto) Ur Squamous Epith Cells Assessment & Plan - Assessment and Plan (Free Text) Assessment: Assessment 62 year old male with history of HTN, DM type 2, HLD, asthma, smoking, med ication noncompliance and family hx of uncles with heart attacks in 50s who presents for chest pressure radiating up to left neck and head. Plan Atypical chest pain Multiple risk factors including obesity, DM, HTN, HLD, former smoker Hypertriglyceridemia, Total cholesterol 214 EKG: Sinus rhythm at 78, no ST-T changes. Last echo 09/25 showed LVEF 73% Troponins stable at <0.0120 x3 Thyroid studies normal ASA, HCTZ, Lisinopril, statin, Lovenox Equivocal regular stress test today, will pursue nuclear stress tomorrow AM, NPO after dinner Patient seen, case reviewed and plan discussed with Dr. Pink. Rehan Coppola, PGY-1 <Jevon Pink - Last Filed: 06/01/18 18:47> Meds - Medications Medications: Current Medications Aspirin (Aspirin Chewable) 81 mg PO DAILY [facility] Last Admin: 06/01/18 11:08 Dose: 81 mg Dextrose (Dextrose 50% Inj) 0 ml IV STAT PRN; Protocol PRN Reason: Hypoglycemia Protocol Dextrose (Glutose 15) 0 gm PO ONCE PRN; Protocol PRN Reason: Hypoglycemia Protocol Enoxaparin Sodium (Lovenox) 40 mg SC DAILY [facility] Last Admin: 06/01/18 11:07 Dose: 40 mg Famotidine (Pepcid) 20 mg PO DAILY [facility] Last Admin: 06/01/18 11:08 Dose: 20 mg Glucagon (Glucagen Diagnostic Kit) 0 mg IM STAT PRN; Protocol PRN Reason: Hypoglycemia Protocol Dextrose (Dextrose 5% In Water 1000 Ml) 1,000 mls @ 0 mls/hr IV .Q0M PRN; Protocol PRN Reason: Hypoglycemia Protocol Influenza Virus Vaccine (Fluzone Quad [id number]) 60 mcg IM .ONCE ONE Stop: 06/02/18 10:01 Insulin Human Regular (Novolin R) 0 unit SC [facility]; Protocol Last Admin: 06/01/18 08:01 Dose: Not Given Lisinopril (Zestril) 5 mg PO DAILY [facility] Last Admin: 06/01/18 11:08 Dose: 5 mg Rosuvastatin Calcium (Crestor) 10 mg PO [facility] Results - Vital Signs Recent Vital Signs: Last Vital Signs Temp 98 F 06/01/18 15:43 Pulse 83 06/01/18 16:00 Resp 20 06/01/18 15:43 BP 110/70 06/01/18 15:43 Pulse Ox 98 06/01/18 15:43 - Labs Result Diagrams: 06/01/18 06:50 06/01/18 06:50 Labs: Laboratory Results - last 24 hr 05/31/18 05/31/18 05/31/18 18:24 18:24 21:02 WBC RBC Hgb Hct MCV MCH MCHC RDW Plt Count MPV Neut % (Auto) Lymph % (Auto) [place] % (Auto) Eos % (Auto) Baso % (Auto) Neut # (Auto) Lymph # (Auto) [place] # (Auto) Eos # (Auto) Baso # (Auto) Sodium Potassium Chloride Carbon Dioxide Anion Gap BUN Creatinine Est GFR ( Amer) Est GFR (Non-Af Amer) POC Glucose (mg/dL) 126 H Random Glucose Hemoglobin A1c Calcium Phosphorus Magnesium Total Bilirubin AST ALT Alkaline Phosphatase Total Creatine Kinase 70 CK-MB (Mass) 0.88 Troponin I < 0.0120 Total Protein Albumin Globulin Albumin/Globulin Ratio Triglycerides 245 H D Cholesterol 214 H LDL Cholesterol Direct 115 HDL Cholesterol 47 Free T4 0.76 L TSH 3rd Generation 1.96 06/01/18 06/01/18 06/01/18 00:50 06:30 06:50 WBC 6.8 RBC 5.11 Hgb 15.0 Hct 43.2 MCV 84.6 MCH 29.4 MCHC 34.8 RDW 13.7 Plt Count 256 MPV 7.7 Neut % (Auto) 52.5 Lymph % (Auto) 35.0 [place] % (Auto) 9.8 Eos % (Auto) 2.0 Baso % (Auto) 0.7 Neut # (Auto) 3.6 Lymph # (Auto) 2.4 [place] # (Auto) 0.7 Eos # (Auto) 0.1 Baso # (Auto) 0.0 Sodium Potassium Chloride Carbon Dioxide Anion Gap BUN Creatinine Est GFR ( Amer) Est GFR (Non-Af Amer) POC Glucose (mg/dL) 135 H Random Glucose Hemoglobin A1c Calcium Phosphorus Magnesium Total Bilirubin AST ALT Alkaline Phosphatase Total Creatine Kinase 64 CK-MB (Mass) 0.74 Troponin I < 0.0120 Total Protein Albumin Globulin Albumin/Globulin Ratio Triglycerides Cholesterol LDL Cholesterol Direct HDL Cholesterol Free T4 TSH 3rd Generation 06/01/18 06/01/18 06/01/18 06:50 06:50 11:08 WBC RBC Hgb Hct MCV MCH MCHC RDW Plt Count MPV Neut % (Auto) Lymph % (Auto) [place] % (Auto) Eos % (Auto) Baso % (Auto) Neut # (Auto) Lymph # (Auto) [place] # (Auto) Eos # (Auto) Baso # (Auto) Sodium 140 Potassium 4.5 Chloride 103 Carbon Dioxide 27 Anion Gap 15 BUN 19 Creatinine 0.8 Est GFR ( Amer) > 60 Est GFR (Non-Af Amer) > 60 POC Glucose (mg/dL) 128 H Random Glucose 126 H Hemoglobin A1c 7.0 H Calcium 9.4 Phosphorus 3.9 Magnesium 2.0 Total Bilirubin 0.5 AST 37 ALT 35 Alkaline Phosphatase 62 Total Creatine Kinase CK-MB (Mass) Troponin I Total Protein 6.7 Albumin 3.7 Globulin 3.0 Albumin/Globulin Ratio 1.3 Triglycerides Cholesterol LDL Cholesterol Direct HDL Cholesterol Free T4 TSH 3rd Generation 06/01/18 16:04 WBC RBC Hgb Hct MCV MCH MCHC RDW Plt Count MPV Neut % (Auto) Lymph % (Auto) [place] % (Auto) Eos % (Auto) Baso % (Auto) Neut # (Auto) Lymph # (Auto) [place] # (Auto) Eos # (Auto) Baso # (Auto) Sodium Potassium Chloride Carbon Dioxide Anion Gap BUN Creatinine Est GFR ( Amer) Est GFR (Non-Af Amer) POC Glucose (mg/dL) 126 H Random Glucose Hemoglobin A1c Calcium Phosphorus Magnesium Total Bilirubin AST ALT Alkaline Phosphatase Total Creatine Kinase CK-MB (Mass) Troponin I Total Protein Albumin Globulin Albumin/Globulin Ratio Triglycerides Cholesterol LDL Cholesterol Direct HDL Cholesterol Free T4 TSH 3rd Generation Attending/Attestation - Attestation I have personally seen and examined this patient.: Yes I have fully participated in the care of the patient.: Yes I have reviewed all pertinent clinical information: Yes Notes (Text): 06/01/18 18:47 Equivocal stress test plan for nuclear stress test in am
[2018-06-01 07:34] LABS: ALB/GLOB RATIO 1.3 (1.0-2.1); ALBUMIN 3.7 g/dL (3.5-5.0); ALT/SGPT 35 U/L (21-72); AST/SGOT 37 U/L (17-59); BLOOD UREA NITROGEN 19 mg/dL (9-20); CALCIUM 9.4 mg/dl (8.6-10.4); GFR NON-AFRICAN AMERICAN > 60
[2018-06-01] MEDS: (Novolin R) Insulin Human Regular 100 units/ml vial SC SCH ×3 (08:01→21:35)
--- NOTE | 2018-06-01 09:12 | CP.PCM.PN ---
Subjective - Date & Time of Evaluation Date of Evaluation: 06/01/18 Time of Evaluation: 09:10 - Subjective Subjective: Progress Note for Hospitalist service Patient seen and examined at bedside. He states he has not experienced any chest pressure today. He was able to sleep well last night. He denies fevers, chills, shortness of breath, palpitations, abdominal pain, nausea, vomiting, diaphoresis, diarrhea, constipation, urinary discomfort, swelling of lower extremities, calf pain. He complains of mild left upper back pain, however patient has a history of chronic back pain. He states he has persistent left sided neck pain. Objective - Vital Signs/Intake and Output Vital Signs (last 24 hours): Temp Pulse Resp BP Pulse Ox 98.1 F 66 20 108/69 96 06/01/18 04:29 06/01/18 04:29 06/01/18 04:29 06/01/18 04:29 06/01/18 04:29 Intake and Output: 06/01/18 06/01/18 06:59 18:59 Intake Total 0 Balance 0 - Medications Medications: Current Medications Aspirin (Aspirin Chewable) 81 mg PO DAILY [facility] Dextrose (Dextrose 50% Inj) 0 ml IV STAT PRN; Protocol PRN Reason: Hypoglycemia Protocol Dextrose (Glutose 15) 0 gm PO ONCE PRN; Protocol PRN Reason: Hypoglycemia Protocol Enoxaparin Sodium (Lovenox) 40 mg SC DAILY [facility] Famotidine (Pepcid) 20 mg PO DAILY [facility] Glucagon (Glucagen Diagnostic Kit) 0 mg IM STAT PRN; Protocol PRN Reason: Hypoglycemia Protocol Dextrose (Dextrose 5% In Water 1000 Ml) 1,000 mls @ 0 mls/hr IV .Q0M PRN; Protocol PRN Reason: Hypoglycemia Protocol Influenza Virus Vaccine (Fluzone Quad [id number]) 60 mcg IM .ONCE ONE Stop: 06/02/18 10:01 Insulin Human Regular (Novolin R) 0 unit SC [facility]; Protocol Last Admin: 06/01/18 08:01 Dose: Not Given Lisinopril (Zestril) 5 mg PO DAILY [facility] Rosuvastatin Calcium (Crestor) 5 mg PO [facility] Last Admin: 05/31/18 21:10 Dose: 5 mg - Labs Labs: 06/01/18 06:50 06/01/18 06:50 - Constitutional Appears: Well, No Acute Distress - Head Exam Head Exam: ATRAUMATIC, NORMOCEPHALIC - Eye Exam Eye Exam: EOMI, PERRL - ENT Exam ENT Exam: Mucous Membranes Moist - Neck Exam Neck Exam: Full ROM - Respiratory Exam Respiratory Exam: Clear to Ausculation Bilateral. absent: Rales, Rhonchi, Wheezes - Cardiovascular Exam Cardiovascular Exam: REGULAR RHYTHM, +S1, +S2. absent: Diastolic murmur, Gallop, Irregular Rhythm, Rubs, Murmur - GI/Abdominal Exam GI & Abdominal Exam: Soft, Normal Bowel Sounds. absent: Firm, Guarding, Rigid, Tenderness, Hernia, Organomegaly - Extremities Exam Extremities Exam: Normal Capillary Refill, Pedal Edema (Minimal bilateral lower extremity edema. ). absent: Calf Tenderness - Back Exam Back Exam: absent: CVA tenderness (L), CVA tenderness (R) - Neurological Exam Neurological Exam: Alert, Awake, Oriented x3 - Psychiatric Exam Psychiatric exam: Normal Affect, Normal Mood - Skin Skin Exam: Dry, Intact, Warm Assessment and Plan - Assessment and Plan (Free Text) Plan: Assessment/plan Chest pain rule out acute coronary syndrome Multiple risk factors including obesity, DM, HTN, HLD, former smoker EKG: Sinus rhythm at 78, no ST-T changes. CXR: hypoinflation, bibasilar atelectasis/infiltrates, cardiomegaly. proBNP 39 Troponinsx3 negative Lipid panel: TG 245 Cholesterol 214 LDL 115 HDL 47 TSH 1.96, T4 0.76 ASA 81mg PO Lisinopril 5mg PO Cardiology Dr. Pink consulted, help appreciated Exercise stress test on 05/31/18 equivocal Plan for nuclear stress test and possible cardiac cath tomorrow Plan to keep NPO tonight past midnight except meds. History of Hypertension Lisinopril 5mg PO History of Type 2 DM Metformin held A1c 7.0 On low dose ISS Hypoglycemia protocol History of Hyperlipidemia Obesity Lipid panel: TG 245 Cholesterol 214 LDL 115 HDL 47 Crestor increased to 10mg PO HS Prophylaxis DVT: Lovenox 40mg SC GI: Pepcid 20mg PO Case discussed with Dr. Ruben Rivera, PGY1
[2018-06-01] MEDS ORDERED: Pneumococcal 23-Valent Vaccine IM ONE (10:00)
[2018-06-01] MEDS: Enoxaparin 40 mg Syringe SC SCH (11:07)
[2018-06-02 07:00] LABS: BASO % 0.6 % (0.0-2.0); EOS # 0.1 K/uL (0.0-0.7); EOS % 1.5 % (0.0-4.0); HEMOGLOBIN 15.3 g/dL (12.0-18.0); LYMPH # 2.2 K/uL (1.0-4.3); LYMPH % 29.9 % (20.0-40.0); MEAN CORPUSCULAR HEMOGLOBIN 28.7 pg (27.0-31.0); MEAN CORPUSCULAR HGB CONC 34.2 g/dL (33.0-37.0); MEAN PLATELET VOLUME 7.6 fL (7.2-11.7); MONO # 0.6 K/uL (0.0-0.8); NEUT # 4.4 K/uL (1.8-7.0); RBC 5.32 Mil/uL (4.40-5.90); RED CELL DISTRIBUTION WIDTH 13.9 % (11.5-14.5); WHITE BLOOD COUNT 7.3 K/uL (4.8-10.8)
--- NOTE | 2018-06-02 07:09 | CP.PCM.PN ---
Subjective - Date & Time of Evaluation Date of Evaluation: 06/02/18 Time of Evaluation: 07:09 - Subjective Subjective: Progress Note for Hospitalist service Patient seen and examined at bedside. He states that he does not have any chest pressure currently, however states he had an episode of chest pressure overnight that resolved on its own. He admits he did not call the nurse to make staff aware. He states he felt a little short of breath. He now admits that he usually does not sleep in bed, but sleeps in a workchair at an incline for the most pa rt. He states he usually only uses 1 pillow when he sleeps in bed for a few hours. He states he has some low back pain which he has had for a long time. He admits to some left sided neck pain, which is also chronic in nature. Patient is due for nuclear stress test today. Patient denies fevers, chills, abdominal pain, nausea, vomiting, diarrhea, constipation, lower extremity edema, calf pain. Objective - Vital Signs/Intake and Output Vital Signs (last 24 hours): Temp Pulse Resp BP Pulse Ox 98.2 F 57 L 20 109/65 96 06/02/18 04:00 06/02/18 04:00 06/02/18 04:00 06/02/18 04:00 06/02/18 04:00 - Medications Medications: Current Medications Aspirin (Aspirin Chewable) 81 mg PO DAILY [facility] Last Admin: 06/01/18 11:08 Dose: 81 mg Dextrose (Dextrose 50% Inj) 0 ml IV STAT PRN; Protocol PRN Reason: Hypoglycemia Protocol Dextrose (Glutose 15) 0 gm PO ONCE PRN; Protocol PRN Reason: Hypoglycemia Protocol Enoxaparin Sodium (Lovenox) 40 mg SC DAILY [facility] Last Admin: 06/01/18 11:07 Dose: 40 mg Famotidine (Pepcid) 20 mg PO DAILY [facility] Last Admin: 06/01/18 11:08 Dose: 20 mg Glucagon (Glucagen Diagnostic Kit) 0 mg IM STAT PRN; Protocol PRN Reason: Hypoglycemia Protocol Dextrose (Dextrose 5% In Water 1000 Ml) 1,000 mls @ 0 mls/hr IV .Q0M PRN; Protocol PRN Reason: Hypoglycemia Protocol Influenza Virus Vaccine (Fluzone Quad [id number]) 60 mcg IM .ONCE ONE Stop: 06/02/18 10:01 Insulin Human Regular (Novolin R) 0 unit SC [facility]; Protocol Last Admin: 06/01/18 21:35 Dose: Not Given Lisinopril (Zestril) 5 mg PO DAILY [facility] Last Admin: 06/01/18 11:08 Dose: 5 mg Rosuvastatin Calcium (Crestor) 10 mg PO HS [facility] Last Admin: 06/01/18 22:03 Dose: 10 mg - Labs Labs: 06/02/18 06:47 06/01/18 06:50 - Constitutional Appears: Well, Non-toxic, No Acute Distress - Head Exam Head Exam: ATRAUMATIC, NORMOCEPHALIC - Eye Exam Eye Exam: EOMI, PERRL - ENT Exam ENT Exam: Mucous Membranes Moist - Neck Exam Neck Exam: Full ROM, Tenderness (Left paracervical tenderness, reproducible to palpation, reproducible to ROM. no midline tenderness. ) - Respiratory Exam Respiratory Exam: Clear to Ausculation Bilateral. absent: Rales, Rhonchi, Wheezes, Respiratory Distress, Stridor - Cardiovascular Exam Cardiovascular Exam: REGULAR RHYTHM, +S1, +S2. absent: Diastolic murmur, Gallop, Irregular Rhythm, Rubs - GI/Abdominal Exam GI & Abdominal Exam: Distended, Soft, Normal Bowel Sounds. absent: Firm, Guarding, Rigid, Tenderness - Extremities Exam Extremities Exam: Normal Capillary Refill, Pedal Edema (Minimal pedal edema bilaterally of lower extremities ). absent: Calf Tenderness, Tenderness - Back Exam Back Exam: absent: CVA tenderness (L), CVA tenderness (R) Additional comments: mild paralumbar tenderness to palpation, no midline tenderness. - Neurological Exam Neurological Exam: Alert, Awake, Oriented x3 - Psychiatric Exam Psychiatric exam: Normal Affect, Normal Mood - Skin Skin Exam: Dry, Intact, Warm Assessment and Plan - Assessment and Plan (Free Text) Plan: Assessment/plan 62 year old male with history of Type 2DM, HTN, HLD, asthma who presented for chest pressure. Admitted for chest pain r/o ACS Chest pain rule out acute coronary syndrome Orthopnea Multiple risk factors including obesity, DM, HTN, HLD, former smoker EKG: Sinus rhythm at 78, no ST-T changes. CXR: hypoinflation, bibasilar atelectasis/infiltrates, cardiomegaly. proBNP 39 Troponinsx3 negative Lipid panel: TG 245 Cholesterol 214 LDL 115 HDL 47 TSH 1.96, T4 0.76 ASA 81mg PO Lisinopril 5mg PO [address] Pink consulted, help appreciated Exercise stress test on 05/31/18 equivocal Plan for nuclear stress test and possible cardiac cath today History of Hypertension Lisinopril 5mg PO History of Type 2 DM Metformin held A1c 7.0 On low dose ISS Hypoglycemia protocol History of Hyperlipidemia Obesity Lipid panel: TG 245 Cholesterol 214 LDL 115 HDL 47 Crestor increased to 10mg PO HS Prophylaxis DVT: Lovenox 40mg SC GI: Pepcid 20mg PO Case discussed with Dr. Ruben Rivera, PGY1
[2018-06-02 07:11] LABS: ALB/GLOB RATIO 1.3 (1.0-2.1); ALBUMIN 3.8 g/dL (3.5-5.0); ALT/SGPT 34 U/L (21-72); AST/SGOT 26 U/L (17-59); BLOOD UREA NITROGEN 18 mg/dL (9-20); CALCIUM 9.6 mg/dl (8.6-10.4); GFR NON-AFRICAN AMERICAN > 60
[2018-06-02] MEDS: (Novolin R) Insulin Human Regular 100 units/ml vial SC SCH ×4 (08:17→21:32)
[2018-06-02] MEDS: Enoxaparin 40 mg Syringe SC SCH (10:00)
[2018-06-02] MEDS ORDERED: Pneumococcal 23-Valent Vaccine IM ONE (10:00)
[2018-06-02] MEDS ORDERED: Influenza Vaccine 60 MCG/0.5 ML SYR (3 yr & up) IM ONE (10:00)
[2018-06-02 14:25] LABS: PROTHROMBIN TIME 11.2 SECONDS (9.7-12.2)
[2018-06-02] MEDS ORDERED: Verapamil 2 ML ONE (17:52)
[2018-06-02] MEDS ORDERED: Midazolam 2 MG/2 ML VIAL ONE ×2 (17:58→18:15)
[2018-06-02] MEDS ORDERED: Iohexol 350mg/ml 100 ML ONE (18:00)
--- NOTE | 2018-06-02 20:09 | CP.PCM.PN ---
Subjective - Date & Time of Evaluation Date of Evaluation: 06/02/18 Time of Evaluation: 20:08 - Subjective Subjective: s/p stress test cath today showing slow flow endothelial dysfunction Objective - Vital Signs/Intake and Output Vital Signs (last 24 hours): Temp Pulse Resp BP Pulse Ox 97.7 F 77 20 118/79 95 06/02/18 10:00 06/02/18 10:00 06/02/18 10:00 06/02/18 10:00 06/02/18 10:00 - Medications Medications: Current Medications Aspirin (Aspirin Chewable) 81 mg PO DAILY [facility] Last Admin: 06/02/18 10:00 Dose: Not Given Dextrose (Dextrose 50% Inj) 0 ml IV STAT PRN; Protocol PRN Reason: Hypoglycemia Protocol Dextrose (Glutose 15) 0 gm PO ONCE PRN; Protocol PRN Reason: Hypoglycemia Protocol Enoxaparin Sodium (Lovenox) 40 mg SC DAILY [facility] Last Admin: 06/02/18 10:00 Dose: Not Given Famotidine (Pepcid) 20 mg PO DAILY [facility] Last Admin: 06/02/18 09:40 Dose: 20 mg Glucagon (Glucagen Diagnostic Kit) 0 mg IM STAT PRN; Protocol PRN Reason: Hypoglycemia Protocol Dextrose (Dextrose 5% In Water 1000 Ml) 1,000 mls @ 0 mls/hr IV .Q0M PRN; Protocol PRN Reason: Hypoglycemia Protocol Insulin Human Regular (Novolin R) 0 unit SC [facility]; Protocol Last Admin: 06/02/18 12:00 Dose: Not Given Lisinopril (Zestril) 5 mg PO DAILY [facility] Last Admin: 06/02/18 09:40 Dose: 5 mg Rosuvastatin Calcium (Crestor) 10 mg PO HS [facility] Last Admin: 06/01/18 22:03 Dose: 10 mg - Labs Labs: 06/02/18 06:47 06/02/18 06:47 PT 11.2 SECONDS (9.7-12.2) 06/02/18 13:47 INR 1.0 06/02/18 13:47 APTT 34 SECONDS (21-34) 06/02/18 13:47 - Constitutional Appears: Well - Head Exam Head Exam: ATRAUMATIC, NORMAL INSPECTION, NORMOCEPHALIC - Eye Exam Eye Exam: EOMI, Normal appearance, PERRL Pupil Exam: NORMAL ACCOMODATION, PERRL - ENT Exam ENT Exam: Mucous Membranes Moist, Normal Exam - Neck Exam Neck Exam: Full ROM, Normal Inspection. absent: Lymphadenopathy - Respiratory Exam Respiratory Exam: Clear to Ausculation Bilateral, NORMAL BREATHING PATTERN - Cardiovascular Exam Cardiovascular Exam: REGULAR RHYTHM, +S1, +S2. absent: Murmur - GI/Abdominal Exam GI & Abdominal Exam: Soft, Normal Bowel Sounds. absent: Tenderness - Extremities Exam Extremities Exam: Full ROM, Normal Capillary Refill, Normal Inspection. absent: Joint Swelling, Pedal Edema - Back Exam Back Exam: NORMAL INSPECTION - Neurological Exam Neurological Exam: Alert, Awake, CN II-XII Intact, Normal Gait, Oriented x3 - Psychiatric Exam Psychiatric exam: Normal Affect, Normal Mood - Skin Skin Exam: Dry, Intact, Normal Color, Warm Assessment and Plan (1) HTN (hypertension) Status: Acute (2) Chest pain Status: Acute (3) Dyspnea Status: Acute
--- NOTE | 2018-06-03 04:14 | CARDCATH ---
PROCEDURE DATE: 06/02/2018 INDICATIONS: Mr. Lindo is a 62-year-old male with history of hypertension, dyslipidemia who presented to [facility] with complaints of chest pain. He underwent an exercise stress which was equivocal secondary to ST depression in inferolateral lateral leads. Subsequently, he underwent a nuclear stress test which also had significant equivocal changes who was brought to the general labor for further evaluation and treatment. PROCEDURE PERFORMED: Left heart catheterization with selective left and right coronary angiogram via right radial approach, 6-English right radial arterial access, left ventriculogram, wrist band for hemostasis. ANGIOGRAPHIC FINDINGS: Right coronary artery is a large-sized vessel, gives off right PDA and PLV branches, nonobstructive in nature. Proximal and mid distal less than 20% with slow flow noted. Left coronary artery, left main large size vessel bifurcates into LAD and left circumflex coronary artery. Left circumflex runs in the AV groove and gives off two medium size obtuse marginal branches, free of any obstructive disease. LAD is a large size vessel, gives off a medium size diagonal branch. Mid LAD 55% stenosis. Nonobstructive disease noted. 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 Elevated end diastolic pressure. RECOMMENDATIONS: Aggressive medical management and risk factor modification. The patient can be discharged home in [address] Pink in 1 to 2 weeks. Jevon Pink MD
[2018-06-03 07:21] LABS: BASO % 0.4 % (0.0-2.0); EOS # 0.1 K/uL (0.0-0.7); EOS % 1.6 % (0.0-4.0); LYMPH # 2.2 K/uL (1.0-4.3); LYMPH % 31.1 % (20.0-40.0); MEAN CELL VOLUME 84.3 fL (80.0-94.0); MEAN CORPUSCULAR HGB CONC 34.4 g/dL (33.0-37.0); MEAN PLATELET VOLUME 7.5 fL (7.2-11.7); MONO # 0.8 K/uL (0.0-0.8); MONO % 10.7 % (0.0-10.0); NEUT % 56.2 % (50.0-75.0); NRBC % 0.1 % (0.0-2.0); RBC 5.17 Mil/uL (4.40-5.90); RED CELL DISTRIBUTION WIDTH 13.9 % (11.5-14.5); WHITE BLOOD COUNT 7.1 K/uL (4.8-10.8)
[2018-06-03 07:28] LABS: ALB/GLOB RATIO 1.3 (1.0-2.1); ALBUMIN 3.8 g/dL (3.5-5.0); ALT/SGPT 29 U/L (21-72); AST/SGOT 21 U/L (17-59); BLOOD UREA NITROGEN 18 mg/dL (9-20); CALCIUM 9.5 mg/dl (8.6-10.4); GFR NON-AFRICAN AMERICAN > 60
[2018-06-03] MEDS: (Novolin R) Insulin Human Regular 100 units/ml vial SC SCH ×2 (08:08→13:51)
--- NOTE | 2018-06-03 08:14 | CP.PCM.PN ---
Subjective - Date & Time of Evaluation Date of Evaluation: 06/03/18 Time of Evaluation: 08:14 Objective - Vital Signs/Intake and Output Vital Signs (last 24 hours): Temp Pulse Resp BP Pulse Ox 98.1 F 59 L 20 143/79 95 06/03/18 04:00 06/03/18 04:00 06/03/18 04:00 06/03/18 04:00 06/03/18 04:00 - Medications Medications: Current Medications Aspirin (Aspirin Chewable) 81 mg PO DAILY [facility] Last Admin: 06/02/18 10:00 Dose: Not Given Dextrose (Dextrose 50% Inj) 0 ml IV STAT PRN; Protocol PRN Reason: Hypoglycemia Protocol Dextrose (Glutose 15) 0 gm PO ONCE PRN; Protocol PRN Reason: Hypoglycemia Protocol Enoxaparin Sodium (Lovenox) 40 mg SC DAILY [facility] Last Admin: 06/02/18 10:00 Dose: Not Given Famotidine (Pepcid) 20 mg PO DAILY [facility] Last Admin: 06/02/18 09:40 Dose: 20 mg Glucagon (Glucagen Diagnostic Kit) 0 mg IM STAT PRN; Protocol PRN Reason: Hypoglycemia Protocol Dextrose (Dextrose 5% In Water 1000 Ml) 1,000 mls @ 0 mls/hr IV .Q0M PRN; Protocol PRN Reason: Hypoglycemia Protocol Insulin Human Regular (Novolin R) 0 unit SC [facility]; Protocol Last Admin: 06/03/18 08:08 Dose: Not Given Lisinopril (Zestril) 5 mg PO DAILY [facility] Last Admin: 06/02/18 09:40 Dose: 5 mg Rosuvastatin Calcium (Crestor) 10 mg PO HS [facility] Last Admin: 06/02/18 21:31 Dose: 10 mg - Labs Labs: 06/03/18 06:57 06/03/18 06:57 PT 11.2 SECONDS (9.7-12.2) 06/02/18 13:47 INR 1.0 06/02/18 13:47 APTT 34 SECONDS (21-34) 06/02/18 13:47
[2018-06-03 08:16] VITALS: BP 100/52; PULSE 67; RESP 18; TEMP 98; O2SAT 97
[2018-06-03] MEDS: Enoxaparin 40 mg Syringe SC SCH (09:41)
[2018-06-03] MEDS ORDERED: Influenza Vaccine 60 MCG/0.5 ML SYR (3 yr & up) IM ONE (13:01)
--- NOTE | 2018-06-03 17:26 | CP.PCM.DIS ---
Provider - Provider Date of Admission: 05/31/18 14:46 Attending physician: Carlos Miranda MD Consults: [employer]- Dr. Pink Time Spent in preparation of Discharge (in minutes): 45 Hospital Course - Lab Results Lab Results: Most Recent Lab Values WBC 7.1 K/uL (4.8-10.8) 06/03/18 06:57 RBC 5.17 Mil/uL (4.40-5.90) 06/03/18 06:57 Hgb 15.0 g/dL (12.0-18.0) 06/03/18 06:57 Hct 43.6 % (35.0-51.0) 06/03/18 06:57 MCV 84.3 fL (80.0-94.0) 06/03/18 06:57 MCH 29.0 pg (27.0-31.0) 06/03/18 06:57 MCHC 34.4 g/dL (33.0-37.0) 06/03/18 06:57 RDW 13.9 % (11.5-14.5) 06/03/18 06:57 Plt Count 276 K/uL (130-400) 06/03/18 06:57 MPV 7.5 fL (7.2-11.7) 06/03/18 06:57 Neut % (Auto) 56.2 % (50.0-75.0) 06/03/18 06:57 Lymph % (Auto) 31.1 % (20.0-40.0) 06/03/18 06:57 [place] % (Auto) 10.7 % (0.0-10.0) H 06/03/18 06:57 Eos % (Auto) 1.6 % (0.0-4.0) 06/03/18 06:57 Baso % (Auto) 0.4 % (0.0-2.0) 06/03/18 06:57 Neut # (Auto) 4.0 K/uL (1.8-7.0) 06/03/18 06:57 Lymph # (Auto) 2.2 K/uL (1.0-4.3) 06/03/18 06:57 [place] # (Auto) 0.8 K/uL (0.0-0.8) 06/03/18 06:57 Eos # (Auto) 0.1 K/uL (0.0-0.7) 06/03/18 06:57 Baso # (Auto) 0.0 K/uL (0.0-0.2) 06/03/18 06:57 PT 11.2 SECONDS (9.7-12.2) 06/02/18 13:47 INR 1.0 06/02/18 13:47 APTT 34 SECONDS (21-34) 06/02/18 13:47 Sodium 139 mmol/L (132-148) 06/03/18 06:57 Potassium 4.3 mmol/L (3.6-5.2) 06/03/18 06:57 Chloride 100 mmol/L (98-107) 06/03/18 06:57 Carbon Dioxide 29 mmol/L (22-30) 06/03/18 06:57 Anion Gap 14 (10-20) 06/03/18 06:57 BUN 18 mg/dL (9-20) 06/03/18 06:57 Creatinine 0.9 mg/dL (0.8-1.5) 06/03/18 06:57 Est GFR ( Amer) > 60 06/03/18 06:57 Est GFR (Non-Af Amer) > 60 06/03/18 06:57 POC Glucose (mg/dL) 183 mg/dL (65-110) H 06/02/18 21:26 Random Glucose 116 mg/dL (75-110) H 06/03/18 06:57 Hemoglobin A1c 7.0 % (4.2-6.5) H 06/01/18 06:50 Calcium 9.5 mg/dl (8.6-10.4) 06/03/18 06:57 Phosphorus 4.4 mg/dL (2.5-4.5) 06/03/18 06:57 Magnesium 2.0 mg/dL (1.6-2.3) 06/03/18 06:57 Total Bilirubin 0.5 mg/dL (0.2-1.3) 06/03/18 06:57 AST 21 U/L (17-59) 06/03/18 06:57 ALT 29 U/L (21-72) 06/03/18 06:57 Alkaline Phosphatase 64 U/L (38-126) 06/03/18 06:57 Total Creatine Kinase 64 U/L (55-170) 06/01/18 00:50 CK-MB (Mass) 0.74 ng/mL (0.0-3.38) 06/01/18 00:50 Troponin I < 0.0120 ng/mL (0.00-0.120) 06/01/18 00:50 NT-Pro-B Natriuret Pep 39.2 pg/mL (0-900) 05/31/18 12:38 Total Protein 6.8 g/dL (6.3-8.3) 06/03/18 06:57 Albumin 3.8 g/dL (3.5-5.0) 06/03/18 06:57 Globulin 3.0 gm/dL (2.2-3.9) 06/03/18 06:57 Albumin/Globulin Ratio 1.3 (1.0-2.1) 06/03/18 06:57 Triglycerides 245 mg/dL (0-149) H D 05/31/18 18:24 Cholesterol 214 mg/dL (0-199) H 05/31/18 18:24 LDL Cholesterol Direct 115 mg/dL (0-129) 05/31/18 18:24 HDL Cholesterol 47 mg/dL (30-70) 05/31/18 18:24 Lipase 59 U/L (23-300) 05/31/18 12:38 Free T4 0.76 ng/dL (0.78-2.19) L 05/31/18 18:24 TSH 3rd Generation 1.96 mIU/L (0.46-4.68) 05/31/18 18:24 Urine Color Yellow (YELLOW) 05/31/18 14:07 Urine Clarity Clear (Clear) 05/31/18 14:07 Urine pH 5.0 (5.0-8.0) 05/31/18 14:07 Ur Specific [place] 1.018 (1.003-1.030) 05/31/18 14:07 Urine Protein Negative mg/dL (NEGATIVE) 05/31/18 14:07 Urine Glucose (UA) Normal mg/dL (Normal) 05/31/18 14:07 Urine Ketones Negative mg/dL (NEGATIVE) 05/31/18 14:07 Urine Blood Negative (NEGATIVE) 05/31/18 14:07 Urine Nitrate Negative (NEGATIVE) 05/31/18 14:07 Urine Bilirubin Negative (NEGATIVE) 05/31/18 14:07 Urine Urobilinogen Normal mg/dL (0.2-1.0) 05/31/18 14:07 Ur Leukocyte Esterase Neg Rudolph/uL (Negative) 05/31/18 14:07 Urine WBC (Auto) < 1 /hpf (0-5) 05/31/18 14:07 Urine RBC (Auto) < 1 /hpf (0-3) 05/31/18 14:07 Ur Squamous Epith Cells < 1 /hpf (0-5) 05/31/18 14:07 - Hospital Course Hospital Course: CC "chest pressure" HPI: Patient is a 62 year old male with history of Type 2 DM, HTN, HLD and asthma who presents with left sided chest pressure-like pain that radiates up to his left neck and into his head. He states that his chest pressure started at 6am yesterday morning after he returned from working overnight at his job. 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 He states he did not experience his chest pain while he was working overnight, but he noticed it when he got home. He denies any heavy lifting or exerting himself overnight. He states he has chronic pain in his neck, but when his pain started it was a 6/10, and he rates the pain in his head a 10/10. He denies any aggravating or alleviating factors. He states he was able to sleep intermittently during the day yesterday, but kept waking up because of the pain. He states the pressure waxed and waned during the day yesterday and he was able to go back to work overnight last night without any issues. He states he was called into work again and he was able to bike without issues. While he was working, he experiencing chest pressure at 11am and his friend urged him to seek medical attention. He states this episode of chest pressure lasted about 1 hour today. He stated he was not able to ride a bike, but his friend called an Uber for him to come in to the Emergency Department. He admits to feeling warm yesterday and today, stating he felt sweaty. Admits to associated lightheadedness as welll. He denies chills, nausea, shortness of breath, palpitations, vomiting, abdominal pain, diarrhea, constipation, dysuria. He states he has had chronic low back pain for years, and he states he has also had swelling of his legs for years as well. Hospital course: Patient was admitted on for chest pain, r/o ACS. EKG showed sinus rythm, no ST changes. Troponins were negative x 3. CXR showed hypoinflation, bibasilar atelectasis/infiltrates, cardiomegaly. Lipids were elevated and crestor was increased to 10mg. [employer] T[employer], Dr Pink, was consulted and patient underwent stress test on (results - equivocal) cardiac cath on 06/02/18. Cardiac cath showed slow flow endothelial dysfunction. Patient history of DM, HTN, and HLD were monitored and managed throughout hospital course. Patient's lisinprol 2.5mg po dailly was increased to 5mg po daily. Patient was cleared for discharge by composition worker. Patient must follow up with PMD at [facility]. Patient must continue Crestor, Lisinopril, Metformin, and Aspirin. This is a brief summary of the hospital course. Please see EMR for more details. Discharge Exam - Head Exam Head Exam: ATRAUMATIC, NORMAL INSPECTION, NORMOCEPHALIC - Eye Exam Eye Exam: EOMI, Normal appearance - ENT Exam ENT Exam: Mucous Membranes Moist - Respiratory Exam Respiratory Exam: NORMAL BREATHING PATTERN, UNREMARKABLE. absent: Rales, Rhonchi, Wheezes - Cardiovascular Exam Cardiovascular Exam: REGULAR RHYTHM, +S1, +S2 - GI/Abdominal Exam GI & Abdominal Exam: Normal Bowel Sounds, Soft. absent: Distended, Firm, Guarding, Tenderness - Extremities Exam Extremities exam: normal inspection, pedal pulses present - Neurological Exam Neurological exam: Alert, Oriented x3 - Psychiatric Exam Psychiatric exam: Normal Affect, Normal Mood - Skin Skin Exam: Dry, Intact, Normal Color, Warm Discharge Plan - Discharge Medications Prescriptions: Lisinopril [Zestril] 5 mg PO DAILY #30 tab - Follow Up Plan Condition: STABLE Disposition: HOME/ ROUTINE Instructions: Chest Pain (DC), Hypertension (DC), Hypertension (GEN) Additional Instructions: Patient is stable for discharge to home. Patient must start new medication: Lisinopril 5mg PO Daily *Discontinue Lisinopril 2.5mg PO daily Patient must continue home medications: 1. Aspirin 81mg PO daily- please restart this medication on Tuesday06/04/18 2. Lipitor 10mg PO HS- please restart this medication on Tuesday06/03/18 3. Metformin 500mg PO daily - please restart this medication on 06/05/18. Patient must follow up with PMD and composition worker, Dr. Pink, within 1-2 weeks of discharge. IF symptoms worsen or reoccur, patient should return to the nearest ED. Referrals: Jevon Pink MD [Staff Provider] -
--- NOTE | 2018-06-05 07:58 | CARD ---
APPROVED REPORT Date of service: 05/31/2018 EKG Measurement Heart [id number] <Conclusion> Normal sinus rhythm Normal ECG
== END 2018-06-03 15:30 | disposition home or self-care (01) ==
LOC: C.ER 12:05 → C.9E 14:46 → C.6T 18:49
PROVIDERS: ADMIT Internal Medicine; ATTEND Internal Medicine
DX: I25.10 Atherosclerotic heart disease of native coronary artery without angina pectoris (principal); E78.5 Hyperlipidemia, unspecified; G89.29 Other chronic pain; E66.9 Obesity, unspecified; Z68.38 Body mass index [BMI] 38.0-38.9, adult; I11.9 Hypertensive heart disease without heart failure; I51.7 Cardiomegaly; E11.9 Type 2 diabetes mellitus without complications
CPT/HCPCS: 36415; 71046; 78452; 80053; 80061; 81001; 82553; 82948; 83036; 83690; 83735; 83880; 84100; 84439; 84443; 84484; 85025; 85610; 85730; 90674; 93005; 93017; 93458; 99152; 99153; 99285; A9502; C1769; C1887; C1894; G0008; G0378; J1644; J1650; J2250; J3010; Q9967

== ENCOUNTER 2018-06-18 11:44 | Emergency (ER) | payer MEDICAID, SELFPAY ==
[2018-06-18 11:45] VITALS: BMI 38.7
[2018-06-18 11:51] VITALS: BP 120/78; PULSE 77; RESP 18; TEMP 98; O2SAT 95
--- NOTE | 2018-06-18 12:24 | C.PDOC ---
History Of Present Illness 62 y/o male presents to ED with complaints of worsening lower back pain that is non-radiating since yesterday. States that he suffers from chronic low back pain from the age of 28 but the pain has worsened yesterday without new trauma. Patient did not take any medication for pain. Denies any trauma, urinary or bowel incontinence, leg weakness, or numbness. Patient had LS Spine x-ray in 2016, which was reviewed by me and showed no acute changes. Time Seen by Provider: 06/18/18 12:01 Chief Complaint (Nursing): Back Pain History Per: Patient History/Exam Limitations: no limitations Onset/Duration Of Symptoms: Days Current Symptoms Are (Timing): Still Present Severity: Moderate Pain Scale Rating Of: 6 Previous Symptoms: Back Pain Past Medical History Reviewed: Historical Data, Nursing Documentation, Vital Signs Vital Signs: Last Vital Signs Temp 98 F 06/18/18 11:49 Pulse 77 06/18/18 11:49 Resp 18 06/18/18 11:49 BP 120/78 06/18/18 11:49 Pulse Ox 95 06/18/18 11:49 - Medical History PMH: Anxiety, Arthritis (neck), Asthma, Back Problems, COPD, CVA, Diabetes (borderline), HTN, Hypercholesterolemia, Hyperlipidemia, Kidney Stones, Pneumon ia, Chronic Kidney Disease, TIA (2002 & 2014), Chronic Pain Denies: Seizures Surgical History: Tonsillectomy (11 y/o) Family History: States: [place] (Multiple uncles had [place]'s in their 40's and 50's but not 1st degree family), Diabetes, Hypertension - Social History Hx Tobacco Use: Yes (occasionally) Hx Alcohol Use: No (>20 yrs ago) Hx Substance Use: No - Immunization History Hx Tetanus Toxoid Vaccination: No Hx Influenza Vaccination: No Hx Pneumococcal Vaccination: No Review Of Systems Except As Marked, All Systems Reviewed And Found Negative. Constitutional: Negative for: Fever, Chills Gastrointestinal: Negative for: Diarrhea, Constipation Genitourinary: Negative for: Dysuria, Incontinence Musculoskeletal: Positive for: Back Pain (lower) Neurological: Negative for: Weakness, Numbness Physical Exam - Physical Exam Appears: Well, Non-toxic, No Acute Distress Skin: Warm, Dry Head: Atraumatic, Normacephalic Eye(s): bilateral: Normal Inspection Oral Mucosa: Moist Neck: Normal, Normal ROM Cardiovascular: Rhythm Regular, No Murmur Respiratory: Normal Breath Sounds, No Rales, No Rhonchi, No Wheezing Gastrointestinal/Abdominal: Soft, No Tenderness Back: No CVA Tenderness, No Vertebral Tenderness, Muscle Spasm, Paraspinal Tenderness (paralumbar), No Straight Leg Raising Extremity: Normal ROM Extremity: Bilateral: Atraumatic, Normal Color And Temperature, Normal ROM Neurological/Psych: Oriented x3, Normal Speech, Normal Motor, Normal Sensation Gait: Steady ED Course And Treatment O2 Sat by Pulse Oximetry: 95 (RA) Pulse Ox Interpretation: Normal Reassessment Condition: Improved Medical Decision Making Medical Decision Making: Impression: Lower Back Pain Plan: --Flexeril --Toradol On re-evaluation, patient is tolerating PO and pain has improved. Patient is seen ambulatory with steady gait in ER and is speaking full sentences. Instructed patient to follow up with clinic for FIELD IRRIGATION WORKER referral. Disposition Counseled Patient/Family Regarding: Diagnosis, Need For Followup, Rx Given - Disposition Referrals: Natalia Mitchell MD [Staff Provider] - [facility] [Outside] Disposition: HOME/ ROUTINE Disposition Time: 12:22 Condition: STABLE Additional Instructions: FOLLOW UP WITH DR. MITCHELL NEXT WEEK FOR RE-EVALUATION AND POSSIBLE PHYSICAL THERAPY REFERRAL. IF URINARY/BOWEL INCONTINENCE OR LEG WEAKNESS OR NUMBNESS DEVELOP RETURN TO ED. 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 - Scribe Statement The provider has reviewed the documentation as recorded by the Yuliibfreddy Irwin All medical record entries made by the Scribe were at my direction and personally dictated by me. I have reviewed the chart and agree that the record accurately reflects my personal performance of the history, physical exam, medical decision making, and the department course for this patient. I have also personally directed, reviewed, and agree with the discharge instructions and disposition.
== END 2018-06-18 12:47 | disposition home or self-care (01) ==
LOC: C.ER 11:44
DX: M54.5 Low back pain (principal)
CPT/HCPCS: 96372; 99283; J1885

== ENCOUNTER 2018-09-12 19:33 | Observation (INO) | payer MEDICAID, SELFPAY ==
[2018-09-12 19:34] VITALS: BMI 38.7
[2018-09-12] MEDS ORDERED: Aspirin 325 mg EC Tablets PO STA (20:17)
[2018-09-12 20:22] LABS: BASO # 0.1 K/uL (0.0-0.2); BASO % 0.8 % (0.0-2.0); EOS # 0.1 K/uL (0.0-0.7); EOS % 1.9 % (0.0-4.0); HEMOGLOBIN 14.6 g/dL (12.0-18.0); LYMPH # 2.2 K/uL (1.0-4.3); LYMPH % 30.6 % (20.0-40.0); MEAN CELL VOLUME 85.8 fL (80.0-94.0); MEAN CORPUSCULAR HEMOGLOBIN 29.5 pg (27.0-31.0); MEAN CORPUSCULAR HGB CONC 34.4 g/dL (33.0-37.0); MEAN PLATELET VOLUME 7.6 fL (7.2-11.7); MONO # 0.5 K/uL (0.0-0.8); MONO % 7.1 % (0.0-10.0); NEUT # 4.2 K/uL (1.8-7.0); NEUT % 59.6 % (50.0-75.0); NRBC % 0.1 % (0.0-2.0); RBC 4.93 Mil/uL (4.40-5.90); RED CELL DISTRIBUTION WIDTH 13.4 % (11.5-14.5); WHITE BLOOD COUNT 7.1 K/uL (4.8-10.8)
[2018-09-12 20:43] LABS: ALB/GLOB RATIO 1.5 (1.0-2.1); ALBUMIN 4.1 g/dL (3.5-5.0); ALT/SGPT 33 U/L (21-72); AST/SGOT 44 U/L (17-59); BLOOD UREA NITROGEN 21 mg/dL (9-20); GFR NON-AFRICAN AMERICAN > 60
[2018-09-12 20:51] LABS: B-TYPE NATRIURETIC PEPTIDE 50.4 pg/mL (0-900)
--- NOTE | 2018-09-12 21:11 | C.PDOC ---
History Of Present Illness 63 year old male, whose past medical history includes diabetes, presents to the ED for evaluation of left-sided chest pain associated with shortness of breath for one day. Patient reports he is sweating and feels a pressure-like sensation to his chest. He has not taken anything for symptoms. Patient denies fever, chills, nausea, vomiting, extremity numbness/weakness. Time Seen by Provider: 09/12/18 20:04 Chief Complaint (Nursing): Chest Pain History Per: Patient History/Exam Limitations: no limitations Onset/Duration Of Symptoms: Hrs Current Symptoms Are (Timing): Still Present Quality: Pressure, "Pain" Additional History Per: Patient Past Medical History Reviewed: Historical Data, Nursing Documentation, Vital Signs Vital Signs: Last Vital Signs Temp 98.5 F 09/12/18 19:40 Pulse 86 09/12/18 20:06 Resp 20 09/12/18 19:40 BP 167/80 H 09/12/18 19:40 Pulse Ox 96 09/12/18 19:40 - Medical History PMH: Anxiety, Arthritis (neck), Asthma, Back Problems, COPD, CVA, Diabetes (borderline), HTN, Hypercholesterolemia, Hyperlipidemia, Kidney Stones, Pneumonia, Chronic Kidney Disease, TIA (2002 & 2014), Chronic Pain Denies: Seizures Surgical History: Tonsillectomy (11 y/o) Family History: States: [place] (Multiple uncles had [place]'s in their 40's and 50's but not 1st degree family), Diabetes, Hypertension - Social History Hx Tobacco Use: Yes (occasionally) Hx Alcohol Use: No (>20 yrs ago) Hx Substance Use: No - Immunization History Hx Tetanus Toxoid Vaccination: No Hx Influenza Vaccination: No Hx Pneumococcal Vaccination: No ED Course And Treatment - Laboratory Results Result Diagrams: 09/12/18 20:13 09/12/18 20:13 Lab Results: Troponin I < 0.0120 ng/mL (0.00-0.120) 09/12/18 20:13 NT-Pro-B Natriuret Pep 50.4 pg/mL (0-900) 09/12/18 20:13 Total Bilirubin 0.5 mg/dL (0.2-1.3) 09/12/18 20:13 AST 44 U/L (17-59) 09/12/18 20:13 ALT 33 U/L (21-72) 09/12/18 20:13 Alkaline Phosphatase 70 U/L (38-126) 09/12/18 20:13 Total Protein 7.0 g/dL (6.3-8.3) 09/12/18 20:13 Albumin 4.1 g/dL (3.5-5.0) 09/12/18 20:13 Globulin 2.8 gm/dL (2.2-3.9) 09/12/18 20:13 Albumin/Globulin Ratio 1.5 (1.0-2.1) 09/12/18 20:13 O2 Sat by Pulse Oximetry: 96 (on RA) Pulse Ox Interpretation: Normal Disposition - Disposition Forms: [facility] [facility] ([place]) - Scribe Statement The provider has reviewed the documentation as recorded by the Scribe (Suki Haque) Provider Attestation: All medical record entries made by the Scribe were at my direction and personally dictated by me. I have reviewed the chart and agree that the record accurately reflects my personal performance of the history, physical exam, medical decision making, and the department course for this patient. I have also personally directed, reviewed, and agree with the discharge instructions and disposition.
--- NOTE | 2018-09-12 21:13 | C.PDOC ---
History Of Present Illness 63 year old male, whose past medical history includes diabetes, presents to the ED for evaluation of left-sided chest pain associated with shortness of breath for one day. Patient reports he is sweating and feels a pressure-like sensation to his chest. He has not taken anything for symptoms. Patient denies fever, chills, nausea, vomiting, extremity numbness/weakness. Time Seen by Provider: 09/12/18 20:04 Chief Complaint (Nursing): Chest Pain History Per: Patient History/Exam Limitations: no limitations Onset/Duration Of Symptoms: Hrs Current Symptoms Are (Timing): Still Present Quality: Pressure, "Pain" Associated Symptoms: Diaphoresis, Other (shortness of breath ). denies: Nausea Additional History Per: Patient Past Medical History Reviewed: Historical Data, Nursing Documentation, Vital Signs Vital Signs: Last Vital Signs Temp 98.5 F 09/12/18 19:40 Pulse 86 09/12/18 20:06 Resp 20 09/12/18 19:40 BP 167/80 H 09/12/18 19:40 Pulse Ox 96 09/12/18 19:40 - Medical History PMH: Anxiety, Arthritis (neck), Asthma, Back Problems, COPD, CVA, Diabetes (borderline), HTN, Hypercholesterolemia, Hyperlipidemia, Kidney Stones, Pneumonia, Chronic Kidney Disease, TIA (2002 & 2014), Chronic Pain Denies: Seizures Surgical History: Tonsillectomy (11 y/o) Family History: States: CA (Multiple uncles had CA's in their 40's and 50's but not 1st degree family), Diabetes, Hypertension - Social History Hx Tobacco Use: Yes (occasionally) Hx Alcohol Use: No (>20 yrs ago) Hx Substance Use: No - Immunization History Hx Tetanus Toxoid Vaccination: No Hx Influenza Vaccination: No Hx Pneumococcal Vaccination: No Review Of Systems Constitutional: Negative for: Fever, Chills Cardiovascular: Positive for: Chest Pain Respiratory: Positive for: Shortness of Breath Gastrointestinal: Negative for: Nausea, Vomiting Neurological: Negative for: Weakness, Numbness Physical Exam - Physical Exam Appears: Non-toxic, No Acute Distress Skin: Normal Color, Warm, Dry Head: Atraumatic, Normacephalic Eye(s): bilateral: Normal Inspection Oral Mucosa: Moist Neck: Supple Chest: Symmetrical, No Deformity, No Tenderness Cardiovascular: Rhythm Regular, No Murmur Respiratory: Normal Breath Sounds, No Rales, No Rhonchi, No Wheezing Extremity: Normal ROM, Capillary Refill (less than 2 seconds ) Neurological/Psych: Oriented x3, Normal Speech, Normal Cognition ED Course And Treatment - Laboratory Results Result Diagrams: 09/12/18 20:13 09/12/18 20:13 Lab Results: Troponin I < 0.0120 ng/mL (0.00-0.120) 09/12/18 20:13 NT-Pro-B Natriuret Pep 50.4 pg/mL (0-900) 09/12/18 20:13 Total Bilirubin 0.5 mg/dL (0.2-1.3) 09/12/18 20:13 AST 44 U/L (17-59) 09/12/18 20:13 ALT 33 U/L (21-72) 09/12/18 20:13 Alkaline Phosphatase 70 U/L (38-126) 09/12/18 20:13 Total Protein 7.0 g/dL (6.3-8.3) 09/12/18 20:13 Albumin 4.1 g/dL (3.5-5.0) 09/12/18 20:13 Globulin 2.8 gm/dL (2.2-3.9) 09/12/18 20:13 Albumin/Globulin Ratio 1.5 (1.0-2.1) 09/12/18 20:13 ECG: Interpreted By Nh ECG Rhythm: Sinus Rhythm Interpretation Of ECG: Normal Sinus rhythm at rate 93bpm. Normal intervals, normal axis. LVH. Nonspecific ST changes. Rate From EC O2 Sat by Pulse Oximetry: 96 (on RA) Pulse Ox Interpretation: Normal Medical Decision Making Medical Decision Making: Assessment: chest pain, shortness of breath Plan: * bloodwork * CXR * EKG * Aspirin PO * reassess and disposition Progress: Bloodwork, CXR, EKG ordered and reviewed. Aspirin PO given. Disposition Discussed With Dr.: Wilber Aguilar Doctor Will See Patient In The: Hospital Counseled Patient/Family Regarding: Studies Performed, Diagnosis - Disposition Disposition Time: 21:12 Forms: [employer] (Czech) - Clinical Impression Clinical Impression: Chest pain - Scribe Statement The provider has reviewed the documentation as recorded by the Scribe (Suki Haque) Provider Attestation: All medical record entries made by the Scribe were at my direction and personally dictated by me. I have reviewed the chart and agree that the record accurately reflects my personal performance of the history, physical exam, medical decision making, and the department course for this patient. I have also personally directed, reviewed, and agree with the discharge instructions and dis position.
[2018-09-12 23:43] VITALS: RESP 20; O2SAT 95
--- NOTE | 2018-09-12 23:48 | CP.PCM.HP ---
<Danielito Milner - Last Filed: 09/13/18 05:59> History of Present Illness - History of Present Illness History of Present Illness: PGY1 H&P for Medicine hospitalist CC "chest tightness" This is a 63 year old male with PMH of CAD, NIDDM2, HTN, HLD, arthritis in the neck, morbid obesity and asthma who presents with left sided chest tightness, associated with shortness of breath that started at noon on 09/12. Chest pain is described as nonradiating to the left side of the neck. The pain started while he was sitting on the bus. It returned, and was worse after he went to work at [employer] and was sitting down. He states that he felt like he couldn't catch his breath, but denies pain on inspiration. He denies fever, chills, dyspnea on exertion, orthopnea, nausea, vomiting, abdominal pain, diarrhea, constipation, dysuria. He states he has had chronic swelling of his legs. He endorses numbness of the left fingertips due to arthritis in the neck, which occurs mostly while sleeping. He is unable to lay flat due to neck pain. PMD: Dr. Blair EMR was reviewed: PMH: CAD, NIDDM2, HTN, HLD, Asthma PSH: right 3rd digit surgery, cyst removal on skin, foot surgery x4 (removal of calluses) Home meds: Lisinopril 5 mg PO, Metformin 500 mg PO daily, Lipitor 10 mg PO, ASA 81mg PO. Pt is noncompliant with his medications because he does not have insurance and is unable to afford them. He also states that some of his medications cause him to feel itchy, unsure of which one. Social history: Quit smoking 2 years ago, smokes 4ppd x20 years. Stopped drinking alcohol at the age of 28. Denies drug use. Currently lives and works at a [employer]. Micah Rodriguez is healthcare proxy for patient. No advanced healthcare directive in place. Patient unable to read. Family history: Mother - breast cancer, Father in an accident. Sister has HTN, DM, HLD. Maternal uncles from strokes. Allergies: NKDA Present on Admission - Present on Admission Any Indicators Present on Admission: Yes Review of Systems - Review of Systems All systems: reviewed and no additional remarkable complaints except (as per HPI) Past Patient History - Infectious Disease Hx of Infectious Diseases: None - Past Medical History & Family History Past Medical History?: Yes - Past Social History Smoking Status: Former Smoker - CARDIAC Hx Hypercholesterolemia: Yes Hx Hypertension: Yes - PULMONARY Hx Asthma: Yes Hx Chronic Obstructive Pulmonary Disease (COPD): Yes Hx Pneumonia: Yes - NEUROLOGICAL Hx Seizures: No Hx Transient Ischemic Attacks (TIA): Yes (2002 & 2014) - HEENT Hx HEENT Problems: No - RENAL Hx Chronic Kidney Disease: Yes Hx Kidney Stones: Yes - ENDOCRINE/METABOLIC Hx Endocrine Disorders: Yes Hx Diabetes Mellitus Type 2: Yes - HEMATOLOGICAL/ONCOLOGICAL Hx Blood Disorders: No - INTEGUMENTARY Hx Dermatological Problems: No - MUSCULOSKELETAL/RHEUMATOLOGICAL Hx Arthritis: Yes (neck) - GASTROINTESTINAL Hx Gastrointestinal Disorders: No - GENITOURINARY/GYNECOLOGICAL Hx Genitourinary Disorders: No - PSYCHIATRIC Hx Anxiety: Yes Hx Substance Use: No - SURGICAL HISTORY Hx Tonsillectomy: Yes (11 y/o) - ANESTHESIA Hx Anesthesia: Yes Hx Anesthesia Reactions: No Meds Allergies/Adverse Reactions: Allergies Allergy/AdvReac Type Severity Reaction Status Date / Time No Known Allergies Allergy Verified 09/12/18 19:45 Physical Exam - Constitutional Appears: Non-toxic, No Acute Distress - Head Exam Head Exam: ATRAUMATIC, NORMAL INSPECTION - Eye Exam Eye Exam: EOMI, Normal appearance - ENT Exam ENT Exam: Mucous Membranes Moist - Neck Exam Neck exam: Negative for: Full Rom (limited ROM secondary to pain) - Respiratory Exam Respiratory Exam: Clear to Auscultation Bilateral. absent: Decreased Breath Sounds, Rales, Rhonchi, Wheezes, Respiratory Distress, Stridor - Cardiovascular Exam Cardiovascular Exam: REGULAR RHYTHM, +S1, +S2. absent: Tachycardia, Irregular Rhythm, Systolic Murmur - GI/Abdominal Exam GI & Abdominal Exam: Distended (morbd obesity), Normal Bowel Sounds, Soft. absent: Rebound, Rigid, Tenderness - Extremities Exam Extremities exam: Positive for: normal capillary refill, pedal edema (1+ pitting edema), pedal pulses present - Neurological Exam Neurological exam: Alert, Oriented x3 - Psychiatric Exam Psychiatric exam: Normal Affect, Normal Mood - Skin Skin Exam: Dry, Normal Color, Warm Results - Vital Signs Recent Vital Signs: Last Vital Signs Temp 98.6 F 09/12/18 21:31 Pulse 90 09/12/18 21:31 Resp 17 09/12/18 21:31 BP 135/79 09/12/18 21:31 Pulse Ox 98 09/12/18 21:31 - Labs Result Diagrams: 09/12/18 20:13 09/12/18 20:13 Labs: Laboratory Results - last 24 hr 09/12/18 09/12/18 20:13 20:13 WBC 7.1 RBC 4.93 Hgb 14.6 Hct 42.3 MCV 85.8 MCH 29.5 MCHC 34.4 RDW 13.4 Plt Count 277 MPV 7.6 Neut % (Auto) 59.6 Lymph % (Auto) 30.6 [place] % (Auto) 7.1 Eos % (Auto) 1.9 Baso % (Auto) 0.8 Neut # (Auto) 4.2 Lymph # (Auto) 2.2 [place] # (Auto) 0.5 Eos # (Auto) 0.1 Baso # (Auto) 0.1 Sodium 136 Potassium 4.0 Chloride 102 Carbon Dioxide 27 Anion Gap 12 BUN 21 H Creatinine 0.9 Est GFR ( Amer) > 60 Est GFR (Non-Af Amer) > 60 Random Glucose 260 H D Calcium 9.0 Total Bilirubin 0.5 AST 44 ALT 33 Alkaline Phosphatase 70 Troponin I < 0.0120 NT-Pro-B Natriuret Pep 50.4 Total Protein 7.0 Albumin 4.1 Globulin 2.8 Albumin/Globulin Ratio 1.5 Assessment & Plan - Assessment and Plan (Free Text) Assessment: This is a 63 year old male with PMH of CAD, NIDDM2, HTN, HLD, arthritis in the neck, morbid obesity and asthma who presents with left sided chest pain. Admitted for chest pain to r/o ACS Plan Chest pain; likely secondary to cervical arthritis; rule out acute coronary syndrome Pt received ASA 325 mg PO in the ED EKG: Sinus rhythm at 93, LVH criteria, no STTW changes CXR: cardiomegaly; f/u official read proBNP 50.4 Initial troponin <0.0120; will trend RUTH panel q6H x2 ASA 81mg PO daily Hx of CAD diagnosed May [address] Pink in May 2018 shows moderate mid left anterior descending artery disease. Increased end diastolic pressure Echocardiogram September 2017 shows LVEF of 73%, normal study. Will start on Metoprolol succinate 25 mg PO daily for cardioprotection ASA 81 mg PO daily Will consider cardiology consult in am Hx of HTN Currently, 142/80 Metoprolol succinate 25 mg PO daily Can possibly add lisinopril 5 mg PO in the am if pt hypertensive Hx of NIDDM2 Random glucose is 260 on admission; HgbA1c in May 2018 was 7.0 Accuchecks ACHS Metformin 500 mg PO BID Will consider ISS low if needed F/u HgbA1c Hx of Hyperlipidemia Morbid Obesity TG/CHL/LDL/HDL is 245/214/115/47 in May 2018 Crestor 5mg PO HS f/u lipid panel Hx of C-spine arthritis Pt reports that he will see a "specialist" soon for the arthritis Currently not complaining of neck pain. Will consider NSAIDs for pain management. Prophylaxis DVT: Heparin 5000 u sc q8h GI: not indicated at this time SW consult for help with medicaid Case was discussed with attending physician, Dr. Jeff Milner PGY1 <Wilber Aguilar P - Last Filed: 09/13/18 08:15> Results - Vital Signs Recent Vital Signs: Last Vital Signs Temp 97.5 F L 09/13/18 07:00 Pulse 67 09/13/18 07:00 Resp 20 09/13/18 07:00 BP 121/79 09/13/18 07:00 Pulse Ox 95 09/13/18 07:00 - Labs Result Diagrams: 09/13/18 07:17 09/13/18 07:17 Labs: Laboratory Results - last 24 hr 09/12/18 09/12/18 09/13/18 20:13 20:13 02:00 WBC 7.1 RBC 4.93 Hgb 14.6 Hct 42.3 MCV 85.8 MCH 29.5 MCHC 34.4 RDW 13.4 Plt Count 277 MPV 7.6 Neut % (Auto) 59.6 Lymph % (Auto) 30.6 [place] % (Auto) 7.1 Eos % (Auto) 1.9 Baso % (Auto) 0.8 Neut # (Auto) 4.2 Lymph # (Auto) 2.2 [place] # (Auto) 0.5 Eos # (Auto) 0.1 Baso # (Auto) 0.1 Sodium 136 Potassium 4.0 Chloride 102 Carbon Dioxide 27 Anion Gap 12 BUN 21 H Creatinine 0.9 Est GFR ( Amer) > 60 Est GFR (Non-Af Amer) > 60 POC Glucose (mg/dL) Random Glucose 260 H D Calcium 9.0 Phosphorus Magnesium Total Bilirubin 0.5 AST 44 ALT 33 Alkaline Phosphatase 70 Total Creatine Kinase 73 CK-MB (Mass) 0.51 Troponin I < 0.0120 < 0.0120 NT-Pro-B Natriuret Pep 50.4 Total Protein 7.0 Albumin 4.1 Globulin 2.8 Albumin/Globulin Ratio 1.5 09/13/18 09/13/18 09/13/18 06:09 07:17 07:17 WBC 6.2 RBC 4.62 Hgb 13.8 Hct 39.9 MCV 86.4 MCH 29.9 MCHC 34.6 RDW 13.6 Plt Count 247 MPV 7.8 Neut % (Auto) 48.6 L Lymph % (Auto) 40.7 H [place] % (Auto) 7.9 Eos % (Auto) 2.2 Baso % (Auto) 0.6 Neut # (Auto) 3.0 Lymph # (Auto) 2.5 [place] # (Auto) 0.5 Eos # (Auto) 0.1 Baso # (Auto) 0.0 Sodium 136 Potassium 3.8 Chloride 103 Carbon Dioxide 28 Anion Gap 10 BUN 19 Creatinine 0.8 Est GFR ( Amer) > 60 Est GFR (Non-Af Amer) > 60 POC Glucose (mg/dL) 145 H Random Glucose 125 H D Calcium 8.8 Phosphorus 3.8 Magnesium 1.9 Total Bilirubin 0.2 AST 28 ALT 33 Alkaline Phosphatase 64 Total Creatine Kinase CK-MB (Mass) Troponin I NT-Pro-B Natriuret Pep Total Protein 6.3 Albumin 3.6 Globulin 2.7 Albumin/Globulin Ratio 1.3 09/13/18 07:23 WBC RBC Hgb Hct MCV MCH MCHC RDW Plt Count MPV Neut % (Auto) Lymph % (Auto) [place] % (Auto) Eos % (Auto) Baso % (Auto) Neut # (Auto) Lymph # (Auto) [place] # (Auto) Eos # (Auto) Baso # (Auto) Sodium Potassium Chloride Carbon Dioxide Anion Gap BUN Creatinine Est GFR ( Amer) Est GFR (Non-Af Amer) POC Glucose (mg/dL) Random Glucose Calcium Phosphorus Magnesium Total Bilirubin AST ALT Alkaline Phosphatase Total Creatine Kinase 72 CK-MB (Mass) 0.64 Troponin I < 0.0120 NT-Pro-B Natriuret Pep Total Protein Albumin Globulin Albumin/Globulin Ratio Attending/Attestation - Attestation I have personally seen and examined this patient.: Yes I have fully participated in the care of the patient.: Yes I have reviewed all pertinent clinical information: Yes Notes (Text): 09/13/18 08:09 Atypical chest pain, non exertional, no acute ekg changes, neg initial troponin, likely related to cervical radiculpathy which is also tender on the left side. Unlike form cp in may 2018, when stress test+, cath showed lad 58% disease which was like something heavy sitting on chest. He has been non compliant with meds due to difficulties with medicaid for last 2 months, he was counselled about compliance. Will start low dose metoprolol as cardioprotective, metformin, asa.
[2018-09-13 06:20] LABS: CK-MB 0.51 ng/mL (0.0-3.38)
[2018-09-13 07:30] LABS: BASO % 0.6 % (0.0-2.0); EOS # 0.1 K/uL (0.0-0.7); EOS % 2.2 % (0.0-4.0); HEMOGLOBIN 13.8 g/dL (12.0-18.0); LYMPH # 2.5 K/uL (1.0-4.3); LYMPH % 40.7 % (20.0-40.0); MEAN CELL VOLUME 86.4 fL (80.0-94.0); MEAN CORPUSCULAR HEMOGLOBIN 29.9 pg (27.0-31.0); MEAN CORPUSCULAR HGB CONC 34.6 g/dL (33.0-37.0); MEAN PLATELET VOLUME 7.8 fL (7.2-11.7); MONO # 0.5 K/uL (0.0-0.8); MONO % 7.9 % (0.0-10.0); NEUT % 48.6 % (50.0-75.0); RBC 4.62 Mil/uL (4.40-5.90); RED CELL DISTRIBUTION WIDTH 13.6 % (11.5-14.5); WHITE BLOOD COUNT 6.2 K/uL (4.8-10.8)
[2018-09-13 07:49] LABS: ALB/GLOB RATIO 1.3 (1.0-2.1); ALBUMIN 3.6 g/dL (3.5-5.0); ALT/SGPT 33 U/L (21-72); AST/SGOT 28 U/L (17-59); BLOOD UREA NITROGEN 19 mg/dL (9-20); CALCIUM 8.8 mg/dl (8.6-10.4); GFR NON-AFRICAN AMERICAN > 60
[2018-09-13 07:50] LABS: CK-MB 0.64 ng/mL (0.0-3.38)
[2018-09-13 08:06] VITALS: BP 121/79; TEMP 97.5
--- NOTE | 2018-09-13 09:12 | RAD ---
Date of service: 09/12/2018 HISTORY: SOB COMPARISON: Chest radiographs 05/31/2018. FINDINGS: LUNGS: No active pulmonary disease. PLEURA: No significant pleural effusion identified, no pneumothorax apparent. CARDIOVASCULAR: No aortic atherosclerotic calcification present. Normal cardiac size. No pulmonary vascular congestion. OSSEOUS STRUCTURES: No significant abnormalities. VISUALIZED UPPER ABDOMEN: Normal. OTHER FINDINGS: None. IMPRESSION: No interval acute cardiopulmonary disease appreciated.
[2018-09-13] MEDS ORDERED: Metoprolol Succinate 12.5 mg XL Tab PO SCH (10:00)
[2018-09-13 11:46] VITALS: PULSE 86
--- NOTE | 2018-09-13 12:25 | CP.PCM.DIS ---
Provider - Provider Date of Admission: 09/12/18 21:12 Attending physician: Wilber Aguilar MD Consults: 09/12/18 23:39 Senior Regulatory Affairs Specialist [Case Management Referral] Routine Comment: Physician Instructions: pt needs help with medicaid Reason For Exam: Reason for Referral: Senior Regulatory Affairs Specialist Eval Time Spent in preparation of Discharge (in minutes): 30 Diagnosis - Discharge Diagnosis (1) Chest pain Status: Resolved Hospital Course - Lab Results Lab Results: Most Recent Lab Values WBC 6.2 K/uL (4.8-10.8) 09/13/18 07:17 RBC 4.62 Mil/uL (4.40-5.90) 09/13/18 07:17 Hgb 13.8 g/dL (12.0-18.0) 09/13/18 07:17 Hct 39.9 % (35.0-51.0) 09/13/18 07:17 MCV 86.4 fL (80.0-94.0) 09/13/18 07:17 MCH 29.9 pg (27.0-31.0) 09/13/18 07:17 MCHC 34.6 g/dL (33.0-37.0) 09/13/18 07:17 RDW 13.6 % (11.5-14.5) 09/13/18 07:17 Plt Count 247 K/uL (130-400) 09/13/18 07:17 MPV 7.8 fL (7.2-11.7) 09/13/18 07:17 Neut % (Auto) 48.6 % (50.0-75.0) L 09/13/18 07:17 Lymph % (Auto) 40.7 % (20.0-40.0) H 09/13/18 07:17 [place] % (Auto) 7.9 % (0.0-10.0) 09/13/18 07:17 Eos % (Auto) 2.2 % (0.0-4.0) 09/13/18 07:17 Baso % (Auto) 0.6 % (0.0-2.0) 09/13/18 07:17 Neut # (Auto) 3.0 K/uL (1.8-7.0) 09/13/18 07:17 Lymph # (Auto) 2.5 K/uL (1.0-4.3) 09/13/18 07:17 [place] # (Auto) 0.5 K/uL (0.0-0.8) 09/13/18 07:17 Eos # (Auto) 0.1 K/uL (0.0-0.7) 09/13/18 07:17 Baso # (Auto) 0.0 K/uL (0.0-0.2) 09/13/18 07:17 Sodium 136 mmol/L (132-148) 09/13/18 07:17 Potassium 3.8 mmol/L (3.6-5.2) 09/13/18 07:17 Chloride 103 mmol/L (98-107) 09/13/18 07:17 Carbon Dioxide 28 mmol/L (22-30) 09/13/18 07:17 Anion Gap 10 (10-20) 09/13/18 07:17 BUN 19 mg/dL (9-20) 09/13/18 07:17 Creatinine 0.8 mg/dL (0.8-1.5) 09/13/18 07:17 Est GFR ( Amer) > 60 09/13/18 07:17 Est GFR (Non-Af Amer) > 60 09/13/18 07:17 POC Glucose (mg/dL) 199 mg/dL (65-110) H 09/13/18 11:12 Random Glucose 125 mg/dL (75-110) H D 09/13/18 07:17 Calcium 8.8 mg/dl (8.6-10.4) 09/13/18 07:17 Phosphorus 3.8 mg/dL (2.5-4.5) 09/13/18 07:17 Magnesium 1.9 mg/dL (1.6-2.3) 09/13/18 07:17 Total Bilirubin 0.2 mg/dL (0.2-1.3) 09/13/18 07:17 AST 28 U/L (17-59) 09/13/18 07:17 ALT 33 U/L (21-72) 09/13/18 07:17 Alkaline Phosphatase 64 U/L (38-126) 09/13/18 07:17 Total Creatine Kinase 72 U/L (55-170) 09/13/18 07:23 CK-MB (Mass) 0.64 ng/mL (0.0-3.38) 09/13/18 07:23 Troponin I < 0.0120 ng/mL (0.00-0.120) 09/13/18 07:23 NT-Pro-B Natriuret Pep 50.4 pg/mL (0-900) 09/12/18 20:13 Total Protein 6.3 g/dL (6.3-8.3) 09/13/18 07:17 Albumin 3.6 g/dL (3.5-5.0) 09/13/18 07:17 Globulin 2.7 gm/dL (2.2-3.9) 09/13/18 07:17 Albumin/Globulin Ratio 1.3 (1.0-2.1) 09/13/18 07:17 Discharge Exam - Head Exam Head Exam: ATRAUMATIC, NORMAL INSPECTION - Eye Exam Eye Exam: EOMI, Normal appearance - ENT Exam ENT Exam: Normal Exam - Neck Exam Neck exam: Normal Inspection - Respiratory Exam Respiratory Exam: Clear to PA & Lateral, NORMAL BREATHING PATTERN, UNREMARKABLE. absent: Chest Wall Tenderness - Cardiovascular Exam Cardiovascular Exam: REGULAR RHYTHM, +S1, +S2. absent: Tachycardia - GI/Abdominal Exam GI & Abdominal Exam: Normal Bowel Sounds, Soft. absent: Tenderness Additional comments: obese abdomen - Extremities Exam Extremities exam: normal capillary refill, normal inspection - Neurological Exam Neurological exam: Alert, Oriented x3 - Psychiatric Exam Psychiatric exam: Normal Affect, Normal Mood - Skin Skin Exam: Dry, Intact, Normal Color, Warm Discharge Plan - Discharge Medications Prescriptions: Simvastatin 20 mg PO HS #30 tablet - Follow Up Plan Condition: FAIR Disposition: HOME/ ROUTINE Patient education suggested?: Yes Instructions: Obesity, Adult (DC) Additional Instructions: Patient is stable for discharge home. Patient is to follow up with PMD in clinic within several days of discharge. Patient has been non-compliant with medications secondary to cost. Lipitor will be replaced with Simvastatin as it more affordable. Patient's home medications include: Lisinopril 5 mg PO daily, Metformin 500 mg PO daily, ASA 81mg PO daily. Lipitor 10 mg PO daily Lipitor will be stopped, and replaced by Simvastatin 20mg PO QD. Take 1 by mouth at bedtime, daily, in addition to Lisinopril, Metformin, and Aspirin. Patient is advised to lose weight, as this will help with his medical conditions. Patient instructed to return to the nearest Emergency Department with any worsening of symptoms. Referrals: Natalia Blair MD [Staff Provider] -
--- NOTE | 2018-09-14 16:01 | CARD ---
APPROVED REPORT Date of service: 09/12/2018 EKG Measurement Heart [id number] <Conclusion> Normal sinus rhythm Minimal voltage criteria for LVH, may be normal variant Nonspecific ST abnormality Abnormal ECG
== END 2018-09-13 14:15 | disposition home or self-care (01) ==
LOC: C.ER 19:33 → C.6T 21:12
PROVIDERS: ADMIT Internal Medicine; ATTEND Internal Medicine
DX: R07.89 Other chest pain (principal); M47.812 Spondylosis without myelopathy or radiculopathy, cervical region; E11.22 Type 2 diabetes mellitus with diabetic chronic kidney disease; I12.9 Hypertensive chronic kidney disease with stage 1 through stage 4 chronic kidney disease, or unspecified chronic kidney disease; J44.9 Chronic obstructive pulmonary disease, unspecified; I25.10 Atherosclerotic heart disease of native coronary artery without angina pectoris; E78.00 Pure hypercholesterolemia, unspecified; E78.5 Hyperlipidemia, unspecified; N18.9 Chronic kidney disease, unspecified; Z79.84 Long term (current) use of oral hypoglycemic drugs
CPT/HCPCS: 36415; 71045; 80053; 82948; 83735; 83880; 84100; 84484; 85025; 99285; G0378; J1644